=== PATIENT | female | born 1940 | race Caucasian/White ===

== ENCOUNTER → 2017-09-22 | Outpatient (CLI) | payer OTHER ==
[~2017-09-22] MED LIST: ALIGN4 MG PO; AMARYL2 M1 PO; ASPIR 8181 MG PO; AUGMENTIN 875-1 EACH PO; BENADRYL25 MG PO; CARDURA4 MG PO; COZAAR 50 MG TA50 M2 PO; DAPSONE100 MG TOP; HYDROCODON-ACE1 EAC7 PO; KLOR-CON 1010 MEQ PO; LASIX 40 MG TAB40 M2 PO; LEVOXYL75 MCG PO; MAGOX 400400 MG PO; METFORMIN HCL500 MG PO; NEURONTIN 300300 M1 PO; NYSTATIN15 G1 TOP; PROTONIX40 M1 PO; REQUIP 0.25 M0.25 M1 PO; SIMVASTATIN10 MG PO; TRAMADOL 50 MG50 MG PO; TYLENOL325 MG PO; ZYRTEC10 M5 PO
== END ==
LOC: HYPER
DX: E11.622 Type 2 diabetes mellitus with other skin ulcer (principal); L97.321 Non-pressure chronic ulcer of left ankle limited to breakdown of skin; L88 Pyoderma gangrenosum; E78.5 Hyperlipidemia, unspecified; I10 Essential (primary) hypertension; M19.90 Unspecified osteoarthritis, unspecified site; Z79.84 Long term (current) use of oral hypoglycemic drugs; Z72.89 Other problems related to lifestyle
CPT/HCPCS: 53353; 53354

== ENCOUNTER 2017-09-26 17:40 | Emergency (ER) | payer OTHER ==
[~2017-09-26] VITALS: Ht 160 cm; Wt 104.3 kg
== END 2017-09-26 19:35 | disposition home or self-care (01) ==
LOC: ER 17:40
DX: L76.22 Postprocedural hemorrhage of skin and subcutaneous tissue following other procedure (principal); E11.9 Type 2 diabetes mellitus without complications; I10 Essential (primary) hypertension; Z88.2 Allergy status to sulfonamides

== ENCOUNTER → 2017-09-28 | Outpatient (CLI) | payer OTHER | LOC: HYPER 06:59 | DX: E11.622 Type 2 diabetes mellitus with other skin ulcer (principal); L97.321 Non-pressure chronic ulcer of left ankle limited to breakdown of skin; L97.812 Non-pressure chronic ulcer of other part of right lower leg with fat layer exposed; L88 Pyoderma gangrenosum; E11.52 Type 2 diabetes mellitus with diabetic peripheral angiopathy with gangrene; Z79.84 Long term (current) use of oral hypoglycemic drugs; E78.5 Hyperlipidemia, unspecified; I10 Essential (primary) hypertension; M19.90 Unspecified osteoarthritis, unspecified site; Z85.828 Personal history of other malignant neoplasm of skin; Z72.89 Other problems related to lifestyle ==

== ENCOUNTER → 2017-10-05 | Outpatient (CLI) | payer OTHER | LOC: HYPER 07:59 | DX: E11.622 Type 2 diabetes mellitus with other skin ulcer (principal); L97.321 Non-pressure chronic ulcer of left ankle limited to breakdown of skin; L97.812 Non-pressure chronic ulcer of other part of right lower leg with fat layer exposed; E11.621 Type 2 diabetes mellitus with foot ulcer; L97.411 Non-pressure chronic ulcer of right heel and midfoot limited to breakdown of skin; L89.612 Pressure ulcer of right heel, stage 2; L88 Pyoderma gangrenosum; E11.52 Type 2 diabetes mellitus with diabetic peripheral angiopathy with gangrene; Z79.84 Long term (current) use of oral hypoglycemic drugs; E78.5 Hyperlipidemia, unspecified; I10 Essential (primary) hypertension; M19.90 Unspecified osteoarthritis, unspecified site; Z85.828 Personal history of other malignant neoplasm of skin; Z72.89 Other problems related to lifestyle ==

== ENCOUNTER → 2017-10-13 | Outpatient (CLI) | payer OTHER ==
[~2017-10-13] MED LIST changes: +ALLERGY RELIEF25 MG PO; +AMARYL4 MG PO; +BANOPHEN25 M1 PO; +COLACE100 MG PO; +DAPSONE100 MG PO; +DURAGESIC25 MCG/HR TRANSDERM; +FLUCONAZOLE 10100 MG PO; +INVANZ1 GM IV; +LASIX 40 MG TAB40 M1 PO; +LINEZOLID600 MG PO; +MINOCIN100 MG PO; +MULTIVITAMINS1 EAC7 PO; +NORCO 10-325 T1 EACH PO; +NOVOLIN N100 UNIT/3 SUBQ; +ONDANSETRON HCL4 M2 PO; +PROAIR HFA8.5 GM PO; +PROBIOTIC1 EAC1 PO; +TACROLIMUS30 G1 TOP; +TRIAMCINOLONE A80 G2 TOP; +VITAMINC500 PO
== END ==
LOC: HYPER 06:41
DX: E11.622 Type 2 diabetes mellitus with other skin ulcer (principal); L97.812 Non-pressure chronic ulcer of other part of right lower leg with fat layer exposed; L97.321 Non-pressure chronic ulcer of left ankle limited to breakdown of skin; E11.52 Type 2 diabetes mellitus with diabetic peripheral angiopathy with gangrene; L88 Pyoderma gangrenosum; I10 Essential (primary) hypertension; E78.5 Hyperlipidemia, unspecified; M19.90 Unspecified osteoarthritis, unspecified site; Z79.84 Long term (current) use of oral hypoglycemic drugs; Z85.9 Personal history of malignant neoplasm, unspecified; Z72.89 Other problems related to lifestyle

== ENCOUNTER 2017-10-14 05:12 | Day surgery (SDC) | payer OTHER ==
[~2017-10-14] VITALS: Ht 160 cm; Wt 110.7 kg
--- NOTE | ~2017-10-14 | EKG ---
[address] [address] ELECTROCARDIOGRAM REPORT Name: CARLINE CURRY Room #: 150-4 [facility]..#: [id number] Admission: 10/14/17 Attend Phys: Braden Graham Discharge: Date of : 44 Report #: [id number] THIS REPORT FOR: //name// [facility] Test Date: 2017-10-14 Test Time: 06:57:05 Pat Name: CARLINE CURRY Department: Room: 150 4 Gender: F Miner Assistant: RONNY : 1940 Requested By: Drew Bernardo Order Number: [id number] MD: David Santos Measurements Intervals [place] Rate: 65 P: 34 [place]: 162 QRS: -20 QRSD: 94 T: 16 QT: 435 QTc: 453 Interpretive Statements Sinus rhythm Left ventricular hypertrophy No previous ECG available for comparison Electronically Signed On 10-14-2017 8:41:21 VICE PRESIDENT OF DEVELOPMENT by David Santos [email or web address] <ELECTRONICALLY SIGNED> By: David Santos MD 10/14/17 [id number] 0657 MD LILY Garcia
[~2017-10-14 05:12] MED LIST changes: -ALLERGY RELIEF25 MG PO; -AMARYL4 MG PO; -BANOPHEN25 M1 PO; -COLACE100 MG PO; -FLUCONAZOLE 10100 MG PO; -INVANZ1 GM IV; -LASIX 40 MG TAB40 M1 PO; -LINEZOLID600 MG PO; -MINOCIN100 MG PO; -NORCO 10-325 T1 EACH PO; -NOVOLIN N100 UNIT/3 SUBQ; -ONDANSETRON HCL4 M2 PO; -PROAIR HFA8.5 GM PO; -PROBIOTIC1 EAC1 PO; -TACROLIMUS30 G1 TOP; -TRIAMCINOLONE A80 G2 TOP
[2017-10-14 07:10] LABS: CALCIUM 9.8 mg/dL (8.5-10.1); CREATININE 1.3 mg/dL (0.6-1.0); POTASSIUM 4.5 mmol/L (3.5-5.1)
[2017-10-14 07:40] VITALS: BP 149/61
[2017-10-14 08:49] VITALS: BP 149/61
== END 2017-10-14 09:13 | disposition home or self-care (01) ==
LOC: TBA 05:12 → OR 05:12 → TBA 05:13 → OR 09:13
PROVIDERS: Anesthesiology
DX: E11.622 Type 2 diabetes mellitus with other skin ulcer (principal); L97.828 Non-pressure chronic ulcer of other part of left lower leg with other specified severity; L97.818 Non-pressure chronic ulcer of other part of right lower leg with other specified severity; L88 Pyoderma gangrenosum; I10 Essential (primary) hypertension; E78.5 Hyperlipidemia, unspecified; K21.9 Gastro-esophageal reflux disease without esophagitis; E03.9 Hypothyroidism, unspecified; G47.33 Obstructive sleep apnea (adult) (pediatric); Z90.710 Acquired absence of both cervix and uterus; Z85.828 Personal history of other malignant neoplasm of skin; Z96.641 Presence of right artificial hip joint; Z79.899 Other long term (current) drug therapy; Z98.41 Cataract extraction status, right eye; Z98.42 Cataract extraction status, left eye; Z88.2 Allergy status to sulfonamides; Z79.82 Long term (current) use of aspirin; Z79.891 Long term (current) use of opiate analgesic
CPT/HCPCS: 50010; 50101; 50386; 53353; 53354; 57091; 62110; 62900; 70005

== ENCOUNTER → 2017-10-19 | Outpatient (CLI) | payer OTHER | LOC: HYPER 06:45 | DX: E11.622 Type 2 diabetes mellitus with other skin ulcer (principal); L97.321 Non-pressure chronic ulcer of left ankle limited to breakdown of skin; L97.812 Non-pressure chronic ulcer of other part of right lower leg with fat layer exposed; L88 Pyoderma gangrenosum; Z79.84 Long term (current) use of oral hypoglycemic drugs; E78.5 Hyperlipidemia, unspecified; I10 Essential (primary) hypertension; M19.90 Unspecified osteoarthritis, unspecified site; Z72.89 Other problems related to lifestyle ==

== ENCOUNTER → 2017-11-16 | Outpatient (CLI) | payer OTHER ==
[~2017-11-16] MED LIST changes: +ALLERGY RELIEF25 MG PO; +AMARYL4 MG PO; +BANOPHEN25 M1 PO; +COLACE100 MG PO; +FLUCONAZOLE 10100 MG PO; +INVANZ1 GM IV; +LASIX 40 MG TAB40 M1 PO; +LINEZOLID600 MG PO; +MINOCIN100 MG PO; +NORCO 10-325 T1 EACH PO; +NOVOLIN N100 UNIT/3 SUBQ; +ONDANSETRON HCL4 M2 PO; +PROAIR HFA8.5 GM PO; +PROBIOTIC1 EAC1 PO; +TACROLIMUS30 G1 TOP; +TRIAMCINOLONE A80 G2 TOP
== END ==
LOC: HYPER 06:41
DX: E11.622 Type 2 diabetes mellitus with other skin ulcer (principal); L88 Pyoderma gangrenosum; L97.321 Non-pressure chronic ulcer of left ankle limited to breakdown of skin; E78.5 Hyperlipidemia, unspecified; I10 Essential (primary) hypertension; M19.90 Unspecified osteoarthritis, unspecified site; Z85.828 Personal history of other malignant neoplasm of skin; Z98.49 Cataract extraction status, unspecified eye; Z79.84 Long term (current) use of oral hypoglycemic drugs; Z72.89 Other problems related to lifestyle

== ENCOUNTER → 2017-12-07 | Outpatient (CLI) | payer OTHER | LOC: HYPER 06:44 | DX: E11.622 Type 2 diabetes mellitus with other skin ulcer (principal); L97.321 Non-pressure chronic ulcer of left ankle limited to breakdown of skin; L97.812 Non-pressure chronic ulcer of other part of right lower leg with fat layer exposed; L88 Pyoderma gangrenosum; E78.5 Hyperlipidemia, unspecified; I10 Essential (primary) hypertension; M19.90 Unspecified osteoarthritis, unspecified site; Z79.84 Long term (current) use of oral hypoglycemic drugs; Z72.89 Other problems related to lifestyle ==

== ENCOUNTER → 2017-12-22 | Outpatient (CLI) | payer OTHER | LOC: HYPER 06:49 | DX: E11.622 Type 2 diabetes mellitus with other skin ulcer (principal); L97.321 Non-pressure chronic ulcer of left ankle limited to breakdown of skin; L97.812 Non-pressure chronic ulcer of other part of right lower leg with fat layer exposed; I10 Essential (primary) hypertension; E78.5 Hyperlipidemia, unspecified; M19.90 Unspecified osteoarthritis, unspecified site; L88 Pyoderma gangrenosum; Z72.89 Other problems related to lifestyle; Z79.84 Long term (current) use of oral hypoglycemic drugs; Z85.828 Personal history of other malignant neoplasm of skin ==

== ENCOUNTER 2017-12-27 10:37 | Inpatient (IN) | payer OTHER ==
[~2017-12-27] VITALS: Ht 160 cm; Wt 118.4 kg
--- NOTE | ~2017-12-27 | HC ---
[facility] [place] [address] CONSULTATION Name: CARLINE CURRY Room #: 441-P ADM IN M.R.#: [id number] Admission: 12/27/17 Attend Phys: Gibran Campbell MD Discharge: Date of : 42 Report #: [id number] THIS REPORT FOR: //name// CC: Gibran Huston DATE OF SERVICE: 12/27/2017 HISTORY OF PRESENT ILLNESS: The patient is a 77-year-old white woman seen [facility] at Dr. Aleksandar Deleon request regarding bilateral lower extremities ulcerations-possible pyoderma gangrenosum of 6 months or better duration. The patient is being initially seen at [facility], subsequently transferred to Dr. Aleksandar Deleon, a diagnosis of pyoderma gangrenosum is made. The patient receives treatment with systemic antibiotics and also with initial tapering doses of prednisone. Of lately, the patient is on Augmentin 875 b.i.d. for 10 days and prednisone 10 mg daily prescribed by Dr. Freire sometime last week. The patient did have wound cultures obtained on the last office visit on 12/22/2017, and the culture revealed heavy growth of Proteus mirabilis sensitive only to ertapenem. The patient and son were all for hospitalization for initiation of antibiotics, but they have turned this down. At present, the patient and son relates that the wounds on legs are worse and obviously she is in pain, but fortunately not having systemic symptoms. DRUG ALLERGIES: SULFA DRUGS. MEDICATIONS: The patient is currently on treatment with levothyroxine 75 mcg daily, pantoprazole 40 mg daily, metformin 1 gram p.o. b.i.d., losartan 100 mg daily, magnesium 400 mg daily, furosemide 40 mg daily, Requip 0.5 mg 2 daily, glimepiride 2 mg daily, Cardura 2 mg daily, probiotics, aspirin 81 mg daily, simvastatin 10 mg daily, multivitamins with zinc daily, vitamin C 500 mg daily, Augmentin and prednisone as dictated above, she is also using, a topical combination of gentamicin, clobetasol and dapsone to lower extremity wound as well as dressing changes to both legs 3 times per week. PAST MEDICAL HISTORY: Diabetes mellitus. Hypertension. Right total hip replacement, left ankle fracture. Denies any other surgeries. Diabetes mellitus for many years. Obesity. Dyslipidemia. REVIEW OF SYSTEMS: Essentially noncontributory besides pain in right lower extremity. PHYSICAL EXAMINATION: GENERAL: A well-developed, obese woman. VITAL SIGNS: Presenting with following vital signs: Temperature 98.4, pulse 77, BP 160/100, O2 saturation 97% on room air. HEENMT: Within range. [address] [address] CONSULTATION Name: CARLINE CURRY Room #: 441-P [facility] IN M.R.#: [id number] Admission: 12/27/17 Attend Phys: Gibran Campbell MD Discharge: Date of : 42 Report #: [id number] NECK: Short, difficult to examine. LUNGS: Clear with decreased breath sounds. HEART: S1, S2. No gallop. BREASTS: Deferred. ABDOMEN: Obese, difficult to examine, no palpable masses or megaly. PELVIC: Deferred. RECTAL: Deferred. EXTREMITIES: The patient has rather ugly looking ulcerations on the medial and posterior aspect of the right leg and also another ulceration on the posterior aspect of the left leg with exposed tendon. There is some erythema of legs and swelling of feet. NEUROLOGIC: Grossly within normal limits. LABORATORY DATA: None available since 10/14/2017, where sodium 135, potassium 4.5, BUN 54, creatinine 1.3, albumin 2.3. On 09/07/2017, white blood cell count 11.9, hemoglobin 9.3, platelets 159,000. Hemoglobin A1c on 09/06/2017, 7.5%. ASSESSMENT: 1. Chronic nonhealing ulceration in both legs, question pyoderma gangrenosum versus stasis ulceration. 2. Diabetes mellitus. 3. Chronic kidney disease. 4. Anemia of chronic disease. 5. Infection versus colonization of both legs ulceration with multiple drug resistant Proteus mirabilis. SUGGESTIONS: My initial recommendation is that this patient must be hospitalized and she will need baseline laboratory testing. We will treat the isolated organism on leg ulcer with ertapenem 1 gram IV daily. She might benefit from doing this for 10 days and will need a employment evaluator/case manager to secure approval of IV antibiotics by . Did discuss this recommendation with Dr. Aleksandar Deleon. He agreed with my recommendations. I am awaiting the patient's and son's decision on how to proceed with this. Obviously doing these on outpatient basis with multiple issues that include the PICC line, the approval by insurance company and also I recommend that dressings to be changed on a daily basis. Should we be dealing with pyoderma gangrenosum, we must avoid surgical intervention by all means, debridement with water irrigation is okay. High dose prednisone may be in order. [address] [address] CONSULTATION Name: CARLINE CURRY Room #: 441-P ADM IN M.R.#: [id number] Admission: 12/27/17 Attend Phys: Gibran Campbell MD Discharge: Date of : 42 Report #: [id number] Aleksandar Deleon, thank you for requesting my suggestions in the care of your patient. <ELECTRONICALLY SIGNED> By: Miko Santos MD 12/28/17 1430 1200 1613 Miko Santos MD /nt
--- NOTE | ~2017-12-27 | HC ---
[facility] [place] [address] CONSULTATION Name: CARLINE CURRY Room #: 441-P [facility] IN M.R.#: [id number] Admission: 12/27/17 Attend Phys: Gibran Campbell MD Discharge: 12/28/17 Date of : 42 Report #: [id number] THIS REPORT FOR: //name// CC: Gibran Huston DATE OF SERVICE: 12/27/2017 HISTORY OF PRESENT ILLNESS: This is a pleasant white female who we have been following for biopsy documented pyoderma gangrenosum for the past several months of bilateral lower extremities. The patient was seen last week in our clinic by Dr. Freire and had a culture performed, which came back yesterday as sensitive only to ertapenem IV. The patient was seen by Dr. Miko Santos today in consultation and it was felt that the patient needs to be admitted to the hospital and started on IV antibiotics with associated PICC line. I was asked to continue with the wound care for this patient. The patient was actually scheduled to see me tomorrow for followup. The patient denies fevers or chills. The patient's main complaint is significant pain in both lower extremities. The patient also states she thinks that the current regimen of clobetasol, Silvadene, and dapsone seems to have stopped working. The patient is requesting possibly trying a different type of topical dressing. Approximately 2 weeks ago, I talked to the patient and her son about starting cyclosporine along with prednisone taper for this recalcitrant pyoderma gangrenosum as well as performing another biopsy to make sure that there is not something else that we were dealing with besides the pyoderma. The patient does have a remote history of melanoma on her back. Last week, the patient was started on 10 mg of oral prednisone and states she thinks that might possibly have made her somewhat better, but obviously she has a multidrug resistant Proteus infection in her wounds. The patient is now agreeable to the admission for PICC line placement and the starting of the IV antibiotics, which could be up to 6-8 weeks of treatment with Dr. Santos. We will continue to follow the wounds while she is here in the hospital. We will continue with clobetasol and dapsone, we will start the patient with Hydrofera Blue over the wounds. We will also perform a punch biopsy at the bedside to make sure that there are no underlying etiologies for these ulcerations that we have missed. answered multiple questions for them and we will continue to follow them while they are here in the hospital. IMPRESSION: 1. Chronic ulcerations, bilateral lower extremities, presumed pyoderma gangrenosum. 2. Diabetes mellitus. 3. [place] [address] CONSULTATION Name: CARLINE CURRY Room #: 441-P DIS IN M.R.#: [id number] Admission: 12/27/17 Attend Phys: Gibran Campbell MD Discharge: 12/28/17 Date of : 42 Report #: [id number] PLAN: Described as above. We will continue to follow the patient. <ELECTRONICALLY SIGNED> By: Aleksandar Deleon MD 01/05/18 1524 1314 1731 Aleksandar Deleon MD /nt
--- NOTE | ~2017-12-27 | S ---
[facility] [place] [address] SURGICAL PATH RPT PROCEDURE Name: KANDICE CURRY Room #: 441-P [facility] IN M.R.#: [id number] Admission: 12/27/17 Date of : 44 Discharge: 12/28/17 Report #: [id number] Path Case #: [id number] PATHOLOGY REPORT COLLECTION DATE: 12/28/2017 RECEIVED DATE: 12/28/2017 SUBMITTING PHYS: Dr. Aleksandar Deleon OTHER PHYS: Dr. Gibran Campbell SPECIMEN(S) RECEIVED: A.Right lower leg punch biopsy * * * * * * * * * * * * FINAL DIAGNOSIS: Skin, right lower leg, punch biopsy: - Ulceration with underlying dermal inflammation and hypertrophied vessels. There is no evidence of malignancy (see comment). (SAS:richie; 12/30/2017) COMMENT: There is no evidence within this current biopsy to support pyoderma gangrenosum. The entire epidermal surface is ulcerated with underlying dermal necrosis and secondary vascular occlusion of superficial dermal blood vessels. Only a patchy lymphoplasmacytic inflammatory cell infiltrate is present. Hypertrophied deep veins are identified. The inflammatory changes are not consistent with pyoderma gangrenosum. There is no evidence of malignancy. The case was evaluated with additional deeper levels. (SAS:richie; 12/30/2017) PATHOLOGIST: Dawna Bray M.D., Dermatopathologist REPORT ELECTRONICALLY SIGNED BY: Dawna Bray M.D., Dermatopathologist DATE/TIME: 12/30/2017 10:41 * * * * * * * * * * * * GROSS PATHOLOGY: Received in formalin labeled "Kandice Curry, right lower leg punch biopsy" and consists of a 0.5 cm thick by 0.2 cm in diameter evans skin punch which is entirely submitted as A1. (POWER; 12/28/2017) CLINICAL HISTORY: Rule out or confirm pyoderma gangrenosum/cancer history of melanoma [address] [address] [place] [address] SURGICAL PATH RPT PROCEDURE Name: KANDICE CURRY Room #: 441[facility] IN M.R.#: [id number] Admission: 12/27/17 Date of : 44 Discharge: 12/28/17 Report #: [id number] Path Case #: [id number] INITIAL CPT CODE(S): A; 99743 Professional services performed by [employer], [address] [place] [id number]. Technical services performed by [employer] at [address] [place] [address]. [employer] [address] [place] [address] PHONE: [phone] DIRECTOR: Danny Alcaraz M.D. * * * END OF REPORT * * *
[~2017-12-27 10:37] MED LIST changes: -ALLERGY RELIEF25 MG PO; -AMARYL4 MG PO; -BANOPHEN25 M1 PO; -COLACE100 MG PO; -FLUCONAZOLE 10100 MG PO; -INVANZ1 GM IV; -LASIX 40 MG TAB40 M1 PO; -LINEZOLID600 MG PO; -MINOCIN100 MG PO; -NORCO 10-325 T1 EACH PO; -NOVOLIN N100 UNIT/3 SUBQ; -ONDANSETRON HCL4 M2 PO; -PROAIR HFA8.5 GM PO; -PROBIOTIC1 EAC1 PO; -TACROLIMUS30 G1 TOP; -TRIAMCINOLONE A80 G2 TOP
[2017-12-27 10:59] VITALS: BP 160/100
[2017-12-27 13:18] VITALS: BP 161/87
[2017-12-27 14:45] LABS: HEMATOCRIT 30.3 % (37.0-47.0); HEMOGLOBIN 10.2 gm/dL (12.0-15.0); MCH 32.5 pg (26.0-34.0); MCHC 33.6 g/dL (28.0-37.0); MCV 96.9 fL (80.0-100.0); RBC 3.13 mil/uL (4.20-5.00); RDW 18.5 % (10.5-14.5); WBC 7.1 thou/uL (4.0-11.0)
[2017-12-27 15:03] LABS: ALBUMIN 2.9 g/dL (3.4-5.0); ANION GAP 9 mmol/L (7-16); BUN 50 mg/dL (7-18); CALCIUM 8.8 mg/dL (8.5-10.1); CHLORIDE 104 mmol/L (98-107); CO2 26 mmol/L (21-32); CREATININE 1.2 mg/dL (0.6-1.0); GLUCOSE 267 mg/dL (74-106); SGOT 20 U/L (15-37); SGPT 37 U/L (30-65); SODIUM 139 mmol/L (136-145); TOTAL BILIRUBIN 0.3 mg/dL (<0.1-1.0); TOTAL PROTEIN 6.7 g/dL (6.4-8.2)
[2017-12-27 16:00] VITALS: BP 152/59
[2017-12-27] MEDS ORDERED: CARDURA4 MG PO (17:04)
[2017-12-27 19:31] VITALS: BP 139/65
[2017-12-28 03:12] VITALS: BP 153/89
[2017-12-28 08:00] VITALS: BP 145/69
[2017-12-28 15:22] VITALS: BP 145/69
[2017-12-28] MEDS ORDERED: KLOR-CON 1010 MEQ PO (17:15)
[2017-12-28] MEDS ORDERED: INVANZ1 GM IV (17:15)
[2017-12-28] MEDS ORDERED: PROBIOTIC1 EAC1 PO (17:31)
[2017-12-28] MEDS ORDERED: COLACE100 MG PO (17:31)
[2017-12-28 22:09] LABS: IgA 384 mg/dL (64-422); IgG 579 mg/dL (700-1600); IgM 48 mg/dL (26-217)
[2017-12-29 01:07] LABS: HAV IgM AB (ANTI-HAV IgM) Negative (Negative); HEPATITIS B SURFACE AG Negative (Negative); HEPATITIS C VIRUS AB <0.1 (0.0-0.9)
[2017-12-30 10:08] LABS: ANA INTERPRETATION Negative (Negative)
== END 2017-12-28 17:56 | disposition home health service (06) | DRG 603 ==
LOC: SEN 10:37 → 4S 12:26 → SEN 15:20 → ENTRNSPT 12-28 17:46 → 4S 12-28 17:56
PROVIDERS: Internal Medicine Infectious Disease
PROC: 0HBKXZX Excision of Right Lower Leg Skin, External Approach, Diagnostic (ICD-10-PCS; principal; 2017-12-28)
PROC: 05HB33Z Insertion of Infusion Device into Right Basilic Vein, Percutaneous Approach (ICD-10-PCS; principal; 2017-12-28)
DX: L03.116 Cellulitis of left lower limb (principal); L88 Pyoderma gangrenosum; L97.319 Non-pressure chronic ulcer of right ankle with unspecified severity; L97.329 Non-pressure chronic ulcer of left ankle with unspecified severity; E46 Unspecified protein-calorie malnutrition; Z68.42 Body mass index [BMI] 45.0-49.9, adult; L03.115 Cellulitis of right lower limb; R53.81 Other malaise; G62.9 Polyneuropathy, unspecified; E66.9 Obesity, unspecified; N18.9 Chronic kidney disease, unspecified; E11.22 Type 2 diabetes mellitus with diabetic chronic kidney disease; E11.622 Type 2 diabetes mellitus with other skin ulcer; F10.10 Alcohol abuse, uncomplicated; Z66 Do not resuscitate; E11.51 Type 2 diabetes mellitus with diabetic peripheral angiopathy without gangrene; I12.9 Hypertensive chronic kidney disease with stage 1 through stage 4 chronic kidney disease, or unspecified chronic kidney disease; Z96.641 Presence of right artificial hip joint; E78.5 Hyperlipidemia, unspecified; Z79.82 Long term (current) use of aspirin; Z79.4 Long term (current) use of insulin; Z85.820 Personal history of malignant melanoma of skin; Z88.2 Allergy status to sulfonamides; Z79.899 Other long term (current) drug therapy; Z79.84 Long term (current) use of oral hypoglycemic drugs
CPT/HCPCS: 10102; 27000

== ENCOUNTER 2018-01-04 14:05 | Inpatient (IN) | payer OTHER ==
[~2018-01-04] VITALS: Ht 157.5 cm; Wt 117.9 kg
--- NOTE | ~2018-01-04 | HC ---
[facility] [place] [address] CONSULTATION Name: CARLINE CURRY Room #: 420-[facility] IN M.R.#: [id number] Admission: 01/04/18 Attend Phys: Eliseo Frank MD Discharge: 01/11/18 Date of : 42 Report #: [id number] THIS REPORT FOR: //name// CC: Eliseo Deleon HISTORY OF PRESENT ILLNESS: The patient is seen at the request of Dr. Santos regarding findings of a monoclonal paraprotein. This 77-year-old white female is seen in conjunction with her son. She was readmitted emergently through the ER at [facility] for worsening lower extremity edema and pain. Since August, she had been undergoing therapy for pyoderma gangrenosum through [facility]. As part of her recent laboratory studies, immune globulins were ordered and showed a reduced IgG level of 579 and an immunoelectrophoresis with an IgA lambda paraprotein. She has no preexisting history of multiple myeloma or MGUS. She denies any new palpable masses or bone pain. PAST MEDICAL HISTORY: Significant also for diabetes along with medically managed hypertension. She has had the cellulitis of her lower extremities as described along with evidence of sepsis and wound bleeding, mild renal failure and chronic edema. ALLERGIES: TO SULFA. MEDICATIONS: As listed on the MFR. REVIEW OF SYSTEMS: Currently negative for any sweats, chills, fevers, weight loss or adenopathy. FAMILY HISTORY: Noncontributory. SOCIAL HISTORY: Negative for tobacco and alcohol. PHYSICAL EXAMINATION: GENERAL: Shows her to be morbidly obese. She is alert, in bed. She is currently afebrile. HEENT: Shows eye glasses. NECK: Supple. CHEST: Clear. CARDIOVASCULAR: Normal S1, S2. ABDOMEN: Shows morbid obesity. EXTREMITIES: Show edema with ulceration, right greater than left. This processed being dressed by the programming specialist. LYMPHATICS: Revealed no palpable supraclavicular adenopathy. SKIN: Normal turgor. NEUROLOGIC: No focal localizing signs. PSYCHIATRIC: Not agitated or confused. [facility] [address] [place] [address] CONSULTATION Name: CARLINE CURRY Room #: 420-P [facility] IN M.R.#: [id number] Admission: 01/04/18 Attend Phys: Eliseo Frank MD Discharge: 01/11/18 Date of : 42 Report #: [id number] LABORATORY DATA: Showed a mild anemia. ASSESSMENT: IgA lambda paraprotein. PLAN: As discussed earlier with Dr. Deleon and Dr. Santos as well as the patient and her son we will perform further testing with thought of MGUS versus multiple myeloma. This paraprotein certainly could also be reactive to recent infection and renal failure. Other comorbidity is fact that she has been receiving earlier high doses of prednisone, which would be a possible treatment for myeloma ____ found our pending results. She is to be transferred to a long-term nursing facility in [place], but we will order urine and laboratory testing today to be performed prior to her discharge and we will await those results. Further and future recommendations will be forthcoming. Thanks for asking me to see her in consultation and being allowed to participate in her care. <ELECTRONICALLY SIGNED> By: Rehana Vines MD 01/12/18 1316 1557 2233 Rehana iVnes MD /nt
--- NOTE | ~2018-01-04 | HC ---
[facility] [address] CONSULTATION Name: CARLINE CURRY Room #: 420-P ADM IN M.R.#: [id number] Admission: 01/04/18 Attend Phys: Eliseo Frank MD Discharge: Date of : 42 Report #: [id number] THIS REPORT FOR: //name// CC: Eliseo Deleon DATE OF SERVICE: 01/05/2018 HISTORY OF PRESENT ILLNESS: A 77-year-old white woman being followed for chronic nonhealing ulceration of lower extremities, right greater than left, is brought by her son to the [facility] yesterday and reported patient's mother was unable to get up out of bed because of extreme weakness since last week for total of 5 days. Also, the patient's son reports that mother was having bleeding per right leg wound times 3, requiring dressing changes. The patient denies fevers or night sweats. She besides her usual medications is on ertapenem 1 gram IV daily, prednisone 40 mg daily, fentanyl patch 25 mcg every 72 hours and those medications are not on the patient's list. Today, the patient's son tells me that the metformin was increased to a gram twice daily by her primary physician. The patient elected to change primary physician and Dr. Eliseo Frank is going to be the primary physician as of now. We maintained the lengthy discussions about the patient's son ability to care for mother at home and we recommended hospitalization in [place], which is done, I will be acting as primary physician on January [address] Frank will assume care on January 05. PAST MEDICAL HISTORY: Morbid obesity. Diabetes mellitus. Hypertension. Right total hip replacement. Left ankle fracture. Chronic nonhealing ulcers of both legs, right greater than left, which were thought to be due to pyoderma gangrenosum. After lengthy discussion about therapeutic options, the patient was started on prednisone 40 mg daily sometime last week. The patient also carries a diagnosis of dyslipidemia. DRUG ALLERGIES: SULFA DRUGS. MEDICATIONS: Prednisone 30 mg daily, fentanyl 25 mcg every 72 hours, multivitamin with minerals daily, insulin NPH human 10 units subq daily, ascorbic acid 500 mg daily, losartan 100 mg p.o. daily, lactobacillus 1 capsule daily, KCl 20 mEq daily, glimepiride 4 mg with breakfast, levothyroxine 75 mcg p.o. daily, furosemide 40 mg p.o. b.i.d., pantoprazole 40 mg daily, hydrocodone bitartrate one tablet q.4h p.r.n., atorvastatin 10 mg daily, doxazosin 4 mg at bedtime, ropinirole 0.5 mg b.i.d., magnesium oxide 400 b.i.d., docusate 100 mg b.i.d., ertapenem stopped and meropenem 500 mg IV every 8 hours started. In view of azotemia, metformin discontinued. Since the patient had bleeding per right leg wound, no prophylactic subcutaneous anticoagulation started. REVIEW OF SYSTEMS: Weakness. No nausea and no vomiting. Chronic diarrhea [facility] [address] [place] [address] CONSULTATION Name: CARLINE CURRY Room #: 420-P ADM IN M.R.#: [id number] Admission: 01/04/18 Attend Phys: Eliseo Frank MD Discharge: Date of : 42 Report #: [id number] requiring loperamide on chronic basis . Bleeding per right leg wound, chronic pain to right leg improved after started on Duragesic by Dr. Aleksandar Deleon. PHYSICAL EXAMINATION: GENERAL: Obese woman, not toxic looking. VITAL SIGNS: Temperature 36.6, pulse 90, respirations 20, and BP 157/53. HEENMT: Within range. NECK: Supple, no thyromegaly. BREASTS: Deferred. LUNGS: Clear. HEART: S1, S2. No gallop. ABDOMEN: Morbidly obese, soft, no masses or megaly. EXTREMITIES: 3+ pitting pretibial edema, left leg with superficial ulceration rather clean, no active signs of infection; right leg ulceration with active bleeding in the clinic yesterday. Dressings reapplied, not removed today. NEUROLOGIC: Grossly within normal limits. ASSESSMENT: 1. Profound weakness, undetermined etiology. 2. Nonhealing ulcer, legs, right greater than left, bleeding ____ right leg, Proteus multiple drug resistant organisms in right leg wound. 3. Diabetes mellitus. 4. Acute kidney injury. 5. Malnutrition. 6. Obesity. 7. Pretibial edema. 8. Dyslipidemia. 9. Chronic pain syndrome. SUGGESTIONS: Recommend discontinue ertapenem and start meropenem drug of choice at the hospital 500 mg IV every 8 hours. Discontinue metformin in view of azotemia. Restart prednisone. Restart fentanyl patch. Recommend pressure dressing on legs. Reconsideration of prednisone needs to be entertained in view of the biopsy findings from punch biopsy obtained last week. Dr. Frank, thank you for requesting my suggestion. <ELECTRONICALLY SIGNED> By: Miko Santos MD 01/06/18 0952 1007 1325 Miko Santos MD /nt
--- NOTE | ~2018-01-04 | EKG ---
[address] [place] [address] ELECTROCARDIOGRAM REPORT Name: CARLINE CURRY Room #: 420-P ADM IN M.R.#: [id number] Admission: 01/04/18 Attend Phys: Eliseo Frank MD Discharge: Date of : 42 Report #: [id number] THIS REPORT FOR: //name// [facility] ED Test Date: 2018-01-04 Test Time: 14:28:58 Pat Name: CARLINE CURRY Department: Room: 420 Gender: F Diagnostic Radiologist: ANA : 1940 Requested By: Iona Brooks Order Number: [id number] MD: Jaime Cintron Measurements Intervals [place] Rate: 89 P: 48 [place]: 129 QRS: -20 QRSD: 90 T: 156 QT: 359 QTc: 437 Interpretive Statements Sinus rhythm Atrial premature complex Abnormal R-wave progression, late transition LVH with secondary repolarization abnormality Compared to ECG 10/14/2017 06:57:05 Atrial premature complex(es) now present Electronically Signed On 01-05-2018 8:09:25 [employer] CASHIER by Jaime Cintron [email or web address] <ELECTRONICALLY SIGNED> By: Jaime Cintron MD, [facility] 01/05/18 0809 1428 1428 Jaime Cintron MD, [facility] /EPI
--- NOTE | ~2018-01-04 | S ---
[facility] [place] [address] [place] [address] SURGICAL PATH RPT PROCEDURE Name: KANDICE CURRY Room #: 420-P ADM IN M.R.#: [id number] Admission: 01/04/18 Date of : 44 Discharge: Report #: [id number] Path Case #: [id number] PATHOLOGY REPORT COLLECTION DATE: 01/09/2018 RECEIVED DATE: 01/09/2018 SUBMITTING PHYS: Dr. Logan Arthur OTHER PHYS: Dr. Eliseo Deleon SPECIMEN(S) RECEIVED: A.Debridement tissue right lower leg B.Debridement tissue left lower leg C.Bone left lateral malleolus * * * * * * * * * * * * FINAL DIAGNOSIS: A. Right lower leg wound tissue, debridement: - Marked acute inflammation, ulceration along with fibrinoid necrosis, consistent with debridement tissue. B. Left lower leg wound tissue, debridement: - Marked acute inflammation, ulceration along with fibrinoid necrosis, consistent with debridement tissue. - Fragments of viable and reactive squamous epithelium present. C. Bone, left lateral malleolus, debridement: - Marked acute inflammation along with degeneration in dense fibrous tissue. - Fragments of remodeled bone as well as necrotic bone. (IUV:mgr; 01/10/2018) PATHOLOGIST: Kimmy Jack M.D. REPORT ELECTRONICALLY SIGNED BY: Kimmy aJck M.D. DATE/TIME: 01/10/2018 17:17 * * * * * * * * * * * * GROSS PATHOLOGY: A. The specimen is received in formalin, labeled "Frances, Kandice and debridement right lower leg wound tissue", are multiple irregular fragments of marie-white necrotic to evans pink soft tissues ranging from 0.8 cm up to 2.1 cm in greatest dimension and measuring 2.0 x 1.7 x 0.5 cm in aggregate. The specimen is entirely submitted in A1. B. The specimen is received in formalin, labeled " Frances, Kandice and debridement tissue left lower leg wound", are several irregular fragments of weaver-white necrotic to evans-pink soft tissues ranging from 1.1 up to 4.2 cm in greatest dimension and measuring 4.2 x 1.[address] [address] SURGICAL PATH RPT PROCEDURE Name: KANDICE CURRY Room #: 420-P ADM IN M.R.#: [id number] Admission: 01/04/18 Date of : 44 Discharge: Report #: [id number] Path Case #: [id number] 0.5 cm in aggregate. One fragment has a 0.7 x 0.5 x 0.1 cm weaver-white nodule. Rackman sections are submitted in B1. (Nodule entirely submitted) C. The specimen is received in formalin, labeled " Kandice Curry and bone left lateral malleolus", are multiple irregular fragments off evans-weaver soft tissues admixed with possible bone spicules the aggregate measures 0.7 x 0.5 x 0.1 cm. The specimen is entirely submitted in C1 after decalcification. (SWS; 01/09/2018) CLINICAL HISTORY: Cellulitis bilateral lower extremity INITIAL CPT CODE(S): A; 52975 B; 53570 C; 75208, 46048 Professional services performed by [facility] at [facility] [address], [place] [address] Technical services performed by [facility] at [address] [place] [address], [facility] [address] [place] [address]. [facility] [address] [place] [address] PHONE: [phone] DIRECTOR: Danny Alcaraz M.D. * * * END OF REPORT * * *
--- NOTE | ~2018-01-04 | O ---
[facility] [place] [address] OPERATIVE REPORT Name: CARLINE CURRY Room #: 420-P [facility] IN M.R.#: [id number] Admission: 01/04/18 Attend Phys: Eliseo Frank MD Discharge: 01/11/18 Date of : 44 Report #: [id number] THIS REPORT FOR: //name// CC: Eliseo Sorensenhens DATE OF SERVICE: 01/09/2018 SURGEON: Logan Arthur MD RECONDITIONER: None. PREOPERATIVE DIAGNOSES: 1. Bilateral lower extremity wounds. 2. Pyoderma gangrenosum. 3. Renal failure. POSTOPERATIVE DIAGNOSES: 1. Bilateral lower extremity wounds. 2. Pyoderma gangrenosum. 3. Renal failure. PROCEDURES: 1. Excisional debridement of right lower extremity wound including skin and subcutaneous tissue (starting wound size 13 cm x 8 cm, ending wound size 14 cm x 9 cm with a total area of 126 cm2) with Misonix ultrasonic debridement and application of PriMatrix skin substitute graft. 2. Excisional debridement of left lower extremity wound including skin, subcutaneous tissue, muscle, and bone (starting size 14 cm x 3 cm, ending size 15 cm x 4.5 cm with a surface area of 67.5 cm2) with Misonix ultrasonic debridement and application of PriMatrix skin substitute graft. ANESTHESIA: General endotracheal anesthesia and local anesthetic. ESTIMATED BLOOD LOSS: 10 mL. SPECIMEN: Skin and subcutaneous tissue from the right lower extremity; skin, subcutaneous tissue, muscle and bone from the left lower extremity. COMPLICATIONS: None appreciated. INDICATIONS FOR PROCEDURE: This is a 77-year-old female patient who was seen in the [facility] Emergency Room for worsening bilateral lower extremity swelling and pain. The patient has a history of pyoderma gangrenosum recently diagnosed this past August. She has had difficulty with wound infections, requiring antibiotic therapy. She has been admitted to [address] [address] OPERATIVE REPORT Name: CARLINE CURRY Room #: 420-P DIS IN M.R.#: [id number] Admission: 01/04/18 Attend Phys: Eliseo Frank MD Discharge: 01/11/18 Date of : 42 Report #: [id number] [facility] recently and was dismissed home within the past 2 weeks receiving Invanz through a PICC line. She was seen in followup in the wound care clinic and was felt to have worsened, which prompted her admission through the Emergency Room. I have been consulted by the wound care service to debride her wound and to apply PriMatrix as a skin substitute (which will ultimately serve as a scaffolding for granulation tissue). The patient presents for excisional debridement, Misonix debridement, and placement of PriMatrix on both lower extremities. DESCRIPTION OF PROCEDURE IN DETAIL: After the risks, benefits, and expectations of the operation were discussed in detail with the patient, informed consent was obtained. The patient was identified in the preoperative holding area. She has been receiving scheduled IV antibiotics. She was taken to the operating room and she was placed in the supine position. SCDs were placed on the patient's bilateral lower extremities and pneumatic compression was initiated. The patient was then given IV sedation and she was intubated without incident. A time-out was performed to identify the correct patient and procedure. Both lower extremities were prepped and draped in the standard sterile fashion. The right lower extremity wound was addressed first. The wound was measured and the planned incision was drawn out. Local anesthetic was infiltrated into the skin and subcutaneous tissue. Sharp #10 blade scalpel was used to make the incision through the skin and to excise the necrotic tissue, which also included fibrinous exudate. The tissue was sent for specimen. All areas of necrosis were debrided. Dissection was carried down to healthy bleeding tissue. Cultures were then taken to be sent for aerobes, anaerobes, fungus and AFB. The wound was then curetted and bleeding points were made hemostatic with electrocautery. After ensuring hemostasis, the Appiphanyonix ultrasonic device was then used to mechanically debride the entire surface area of the exposed tissue. Bleeding points were again made hemostatic with electrocautery. The wound was then irrigated and hemostasis was ensured. An island of skin and subcutaneous tissue was present and this was not excised, located in the left mid portion of the wound. The PriMatrix skin substitute (impregnated with silver) was then applied to the wound. An 8 cm x 8 cm mesh graft was placed to cover the defect. The graft was secured to the underlying tissue with interrupted 2-0 Vicryl sutures. Additional graft was placed on the right side of the wound and the island of healthy skin and subcutaneous tissue was notched out in the mesh. The mesh was secured such that there was no significant lifting of the mesh off of the underlying tissue. Two additional smaller pieces were used to completely cover the wound in a similar fashion. The wound was then dressed with Adaptic, normal saline moistened Kerlix, an ABD pad, and additional Kerlix. The left lower extremity wound was addressed next. In a similar fashion, the wound was measured. The planned incision was drawn out. A sharp #10 blade scalpel was used to make an incision after local anesthetic was infiltrated into the skin and subcutaneous tissue. The tissue was excised to be sent for specimen. All necrotic tissue and fibrinous exudate was excised. Cultures were [address] [place] [address] OPERATIVE REPORT Name: CARLINE CURRY Room #: 420-P [facility] IN M.R.#: [id number] Admission: 01/04/18 Attend Phys: Eliseo Frank MD Discharge: 01/11/18 Date of : 42 Report #: [id number] then taken to be sent for aerobes, anaerobes, fungus and AFB. Bleeding points were made hemostatic after curetting the entire surface area of the wound. Dissection was carried down to healthy bleeding tissue. Bone was present in the lower aspect of the wound (lateral malleolus) and the marrow was debrided and sent separately. The marrow did not appear to be particularly infected; however, the marrow was soft. A rasp was then used to smooth out the edges. The Misonix device was then used on the entire surface area of the wound to prepare the wound bed for placement of the graft. The meshed PriMatrix graft was then cut to size and secured to the underlying tissue and edges of the wound with simple interrupted 2-0 Vicryl sutures. There was good coverage of the entire wound. The wound was then dressed with Adaptic, a normal saline moistened Kerlix, an ABD pad and secured with a Kerlix roll. The patient tolerated both procedures well. She was awakened, extubated, and taken to the recovery room in stable condition with no apparent intraoperative complications. <ELECTRONICALLY SIGNED> By: Logan Arthur MD, FACS 01/13/18 [id number] Logan Arthur MD, FACS /nt
[~2018-01-04 14:05] MED LIST changes: -ALLERGY RELIEF25 MG PO; -AMARYL4 MG PO; -BANOPHEN25 M1 PO; -FLUCONAZOLE 10100 MG PO; -LASIX 40 MG TAB40 M1 PO; -LINEZOLID600 MG PO; -MINOCIN100 MG PO; -NORCO 10-325 T1 EACH PO; -NOVOLIN N100 UNIT/3 SUBQ; -ONDANSETRON HCL4 M2 PO; -PROAIR HFA8.5 GM PO; -TACROLIMUS30 G1 TOP; -TRIAMCINOLONE A80 G2 TOP
[2018-01-04 14:14] VITALS: BP 157/53
[2018-01-04] MEDS ORDERED: AMARYL4 MG PO (14:45)
[2018-01-04] MEDS ORDERED: NOVOLIN N100 UNIT/3 SUBQ (14:46)
[2018-01-04 14:47] LABS: HEMATOCRIT 31.4 % (37.0-47.0); HEMOGLOBIN 10.5 gm/dL (12.0-15.0); MCH 32.2 pg (26.0-34.0); MCHC 33.4 g/dL (28.0-37.0); MCV 96.4 fL (80.0-100.0); PLATELET COUNT 168 thou/uL (150-400); RBC 3.25 mil/uL (4.20-5.00); RDW 18.3 % (10.5-14.5); WBC 9.6 thou/uL (4.0-11.0)
[2018-01-04 14:54] LABS: ANION GAP 12 mmol/L (7-16); BUN 63 mg/dL (7-18); CALCIUM 9.7 mg/dL (8.5-10.1); CHLORIDE 104 mmol/L (98-107); CO2 25 mmol/L (21-32); CREATININE 1.6 mg/dL (0.6-1.0); GLUCOSE 197 mg/dL (74-106); POTASSIUM 5.1 mmol/L (3.5-5.1); SODIUM 141 mmol/L (136-145)
[2018-01-04 15:04] LABS: MAGNESIUM 1.7 mg/dL (1.8-2.4); SGOT 16 U/L (15-37); SGPT 37 U/L (30-65); TOTAL BILIRUBIN 0.3 mg/dL (<0.1-1.0); TOTAL PROTEIN 6.8 g/dL (6.4-8.2); TROPONIN-I < 0.04 ng/mL (<0.06)
[2018-01-04 15:11] LABS: ABSOLUTE NEUTROPHILS 7.1 thou/uL (1.4-8.2)
[2018-01-04 15:13] LABS: ANISOCYTOSIS 2+; POLYCHROMASIA 1+; TARGET CELLS FEW
[2018-01-04 15:51] VITALS: BP 157/53
[2018-01-04 16:59] VITALS: BP 141/65
[2018-01-04 17:55] VITALS: BP 132/60
[2018-01-04 19:46] VITALS: BP 133/55
[2018-01-05 04:00] VITALS: BP 146/54
[2018-01-05 07:20] VITALS: BP 132/67
[2018-01-05 08:50] LABS: URINE BILIRUBIN NEGATIVE (Negative); URINE BLOOD NEGATIVE (Negative); URINE CLARITY CLEAR; URINE COLOR YELLOW; URINE GLUCOSE-RANDOM* NEGATIVE (Negative); URINE KETONES NEGATIVE (Negative); URINE LEUKOCYTES-REFLEX NEGATIVE (Negative); URINE NITRITE-REFLEX NEGATIVE (Negative); URINE PROTEIN (DIPSTICK) TRACE (Negative); URINE UROBILINOGEN 0.2 E.U./dl (0.2-1.0)
[2018-01-05 15:02] LABS: CALCIUM 9.4 mg/dL (8.5-10.1); CREATININE 1.5 mg/dL (0.6-1.0); MAGNESIUM 1.6 mg/dL (1.8-2.4); POTASSIUM 4.5 mmol/L (3.5-5.1)
[2018-01-05 15:35] VITALS: BP 103/52
[2018-01-05 19:25] VITALS: BP 115/59
[2018-01-06 03:53] VITALS: BP 118/62
[2018-01-06 07:35] VITALS: BP 123/68
[2018-01-06 15:38] VITALS: BP 110/40
[2018-01-06 20:52] VITALS: BP 114/57
[2018-01-06 23:35] VITALS: BP 106/53
[2018-01-07 03:31] VITALS: BP 144/61
[2018-01-07 08:00] VITALS: BP 151/78
[2018-01-07 15:40] VITALS: BP 124/55
[2018-01-07 19:30] VITALS: BP 137/62
[2018-01-08 04:00] VITALS: BP 182/89
[2018-01-08 08:34] VITALS: BP 156/71
[2018-01-08 20:00] VITALS: BP 122/53
[2018-01-09] VITALS (14 sets, daily range): BP systolic 90–145; BP diastolic 33–73
[2018-01-09 12:04] LABS: ABSOLUTE NEUTROPHILS 6.7 thou/uL (1.4-8.2); BASOPHILS 0.7 % (0.0-2.0); EOSINOPHILS 1.4 % (0.0-3.0); HEMATOCRIT 30.2 % (37.0-47.0); HEMOGLOBIN 9.9 gm/dL (12.0-15.0); MCH 32.9 pg (26.0-34.0); MCHC 32.9 g/dL (28.0-37.0); MONOCYTES 10.8 % (1.0-8.0); PLATELET COUNT 128 thou/uL (150-400); POLYS 68.1 % (36.0-66.0); RBC 3.02 mil/uL (4.20-5.00); RDW 18.2 % (10.5-14.5); WBC 9.8 thou/uL (4.0-11.0)
[2018-01-09 12:25] LABS: ALBUMIN 2.5 g/dL (3.4-5.0); CALCIUM 8.3 mg/dL (8.5-10.1); CREATININE 1.2 mg/dL (0.6-1.0); MAGNESIUM 1.9 mg/dL (1.8-2.4); POTASSIUM 3.8 mmol/L (3.5-5.1); TOTAL BILIRUBIN 0.3 mg/dL (<0.1-1.0); TOTAL PROTEIN 6.1 g/dL (6.4-8.2)
[2018-01-10 04:05] VITALS: BP 128/61
[2018-01-10 07:43] VITALS: BP 131/66
[2018-01-10 11:14] VITALS: BP 133/51
[2018-01-10 11:58] VITALS: BP 143/55
[2018-01-10 19:35] VITALS: BP 134/65
[2018-01-11 04:10] VITALS: BP 171/86
[2018-01-11 05:30] VITALS: BP 156/65
[2018-01-11 07:15] VITALS: BP 175/84
[2018-01-11 15:46] VITALS: BP 150/79
[2018-01-11 16:05] LABS: URINE BILIRUBIN NEGATIVE (Negative); URINE BLOOD NEGATIVE (Negative); URINE CLARITY CLEAR; URINE COLOR YELLOW; URINE GLUCOSE-RANDOM* NEGATIVE (Negative); URINE KETONES NEGATIVE (Negative); URINE LEUKOCYTES-REFLEX NEGATIVE (Negative); URINE NITRITE-REFLEX NEGATIVE (Negative); URINE PROTEIN (DIPSTICK) NEGATIVE (Negative); URINE UROBILINOGEN 0.2 E.U./dl (0.2-1.0)
[2018-01-12 16:08] LABS: KAPPA FREE LIGHT CHAINS 29.6 mg/L (3.3-19.4); KAPPA/LAMBDA RATIO 1.63 (0.26-1.65); LAMBDA FREE LIGHT CHAINS 18.2 mg/L (5.7-26.3)
[2018-01-16 15:06] LABS: GLOBULIN TOTAL 2.6 g/dL (2.2-3.9); M-SPIKE Not Observed g/dL (Not Observed)
== END 2018-01-11 17:58 | DRG 853 ==
LOC: ER 14:05 → EROBS 14:43 → 4E 14:43
PROVIDERS: Family Medicine; Internal Medicine Hematology & Oncology; Internal Medicine Infectious Disease; Nurse Practitioner Family
DX: A41.9 Sepsis, unspecified organism (principal); E43 Unspecified severe protein-calorie malnutrition; L88 Pyoderma gangrenosum; N17.9 Acute kidney failure, unspecified; L97.909 Non-pressure chronic ulcer of unspecified part of unspecified lower leg with unspecified severity; E46 Unspecified protein-calorie malnutrition; Z68.42 Body mass index [BMI] 45.0-49.9, adult; L03.116 Cellulitis of left lower limb; L03.115 Cellulitis of right lower limb; E11.9 Type 2 diabetes mellitus without complications; I10 Essential (primary) hypertension; E78.5 Hyperlipidemia, unspecified; K21.9 Gastro-esophageal reflux disease without esophagitis; E66.01 Morbid (severe) obesity due to excess calories; Z96.641 Presence of right artificial hip joint; G89.4 Chronic pain syndrome; E03.9 Hypothyroidism, unspecified; Z79.899 Other long term (current) drug therapy; Z98.42 Cataract extraction status, left eye; Z98.41 Cataract extraction status, right eye; Z90.710 Acquired absence of both cervix and uterus; Z88.2 Allergy status to sulfonamides; Z87.891 Personal history of nicotine dependence; Z82.49 Family history of ischemic heart disease and other diseases of the circulatory system
CPT/HCPCS: 10084; 50010; 50101; 50386; 53353; 53354; 54109; 56526; 57091; 62110; 62900

== ENCOUNTER → 2018-01-04 | Outpatient (CLI) | payer OTHER ==
[~2018-01-04] MED LIST changes: +ALLERGY RELIEF25 MG PO; +AMARYL4 MG PO; +BANOPHEN25 M1 PO; +COLACE100 MG PO; +FLUCONAZOLE 10100 MG PO; +INVANZ1 GM IV; +LASIX 40 MG TAB40 M1 PO; +LINEZOLID600 MG PO; +MINOCIN100 MG PO; +NORCO 10-325 T1 EACH PO; +NOVOLIN N100 UNIT/3 SUBQ; +ONDANSETRON HCL4 M2 PO; +PROAIR HFA8.5 GM PO; +PROBIOTIC1 EAC1 PO; +TACROLIMUS30 G1 TOP; +TRIAMCINOLONE A80 G2 TOP
== END ==
LOC: HYPER 12-28 16:24
DX: E11.622 Type 2 diabetes mellitus with other skin ulcer (principal); L97.812 Non-pressure chronic ulcer of other part of right lower leg with fat layer exposed; L97.321 Non-pressure chronic ulcer of left ankle limited to breakdown of skin; L88 Pyoderma gangrenosum; I10 Essential (primary) hypertension; I87.2 Venous insufficiency (chronic) (peripheral); L84 Corns and callosities; E78.5 Hyperlipidemia, unspecified; M19.90 Unspecified osteoarthritis, unspecified site; Z85.820 Personal history of malignant melanoma of skin; Z72.89 Other problems related to lifestyle; Z79.84 Long term (current) use of oral hypoglycemic drugs

== ENCOUNTER → 2018-02-01 | Outpatient (CLI) | payer OTHER ==
[~2018-02-01] MED LIST changes: +ALLERGY RELIEF25 MG PO; +AMARYL4 MG PO; +BANOPHEN25 M1 PO; +FLUCONAZOLE 10100 MG PO; +LASIX 40 MG TAB40 M1 PO; +LINEZOLID600 MG PO; +MINOCIN100 MG PO; +NORCO 10-325 T1 EACH PO; +NOVOLIN N100 UNIT/3 SUBQ; +ONDANSETRON HCL4 M2 PO; +PROAIR HFA8.5 GM PO; +TACROLIMUS30 G1 TOP; +TRIAMCINOLONE A80 G2 TOP
== END ==
LOC: HYPER 07:06
DX: E11.622 Type 2 diabetes mellitus with other skin ulcer (principal); L97.812 Non-pressure chronic ulcer of other part of right lower leg with fat layer exposed; L97.321 Non-pressure chronic ulcer of left ankle limited to breakdown of skin; L88 Pyoderma gangrenosum; I10 Essential (primary) hypertension; E78.5 Hyperlipidemia, unspecified; M19.90 Unspecified osteoarthritis, unspecified site; Z79.84 Long term (current) use of oral hypoglycemic drugs

== ENCOUNTER → 2018-02-22 | Outpatient (CLI) | payer OTHER ==
[~2018-02-22] MED LIST changes: -ALLERGY RELIEF25 MG PO; -BANOPHEN25 M1 PO; -FLUCONAZOLE 10100 MG PO; -LASIX 40 MG TAB40 M1 PO; -LINEZOLID600 MG PO; -MINOCIN100 MG PO; -NORCO 10-325 T1 EACH PO; -ONDANSETRON HCL4 M2 PO; -PROAIR HFA8.5 GM PO; -TACROLIMUS30 G1 TOP; -TRIAMCINOLONE A80 G2 TOP
== END ==
LOC: HYPER 07:49
DX: E11.622 Type 2 diabetes mellitus with other skin ulcer (principal); L97.321 Non-pressure chronic ulcer of left ankle limited to breakdown of skin; L97.812 Non-pressure chronic ulcer of other part of right lower leg with fat layer exposed; L88 Pyoderma gangrenosum; I10 Essential (primary) hypertension; E78.5 Hyperlipidemia, unspecified; M19.90 Unspecified osteoarthritis, unspecified site; Z85.828 Personal history of other malignant neoplasm of skin; Z79.84 Long term (current) use of oral hypoglycemic drugs

== ENCOUNTER 2018-03-10 21:12 | Inpatient (IN) | payer OTHER ==
[~2018-03-10] VITALS: Ht 160 cm; Wt 115.7 kg
--- NOTE | ~2018-03-10 | HC ---
[facility] [place] [address] CONSULTATION Name: CARLINE CURRY Room #: 454-P ADM IN M.R.#: [id number] Admission: 03/10/18 Attend Phys: Eliseo Frank MD Discharge: Date of : 42 Report #: [id number] THIS REPORT FOR: //name// CC: Olaf Frank REASON FOR CONSULTATION: Acute kidney injury. HISTORY OF PRESENT ILLNESS: A very complex patient with past medical history of diabetes mellitus, hypertension and pyoderma gangrenosum. Not known to have any previous kidney problems. She presented with worsening lower extremity edema and was found to have an elevated creatinine. She is also known to have monoclonal gammopathy. She denies previous awareness of kidney problems. In fact, back in January, when she was in the hospital, she had a very mildly elevated creatinine and this was 1.2 with the worst being 1.6. No nonsteroidal anti-inflammatory medications intake. However she was started on high dose cyclosporin for her LE Pyoderma by her wound care team She had been evaluated by Hematology in the past for this monoclonal gammopathy. I am not really sure what the plan is regarding the perspective. She presented a few days ago complaining of worsening lower extremity edema and was called by her primary care physician, Dr. Frank, that her kidney levels are elevated and she needs to go to the hospital for further evaluation and management. She is chronically utilizing oxygen. She denies fever or chills. No reported urinary tract infection symptoms. She has had diarrhea a couple of weeks ago. The patient was recently discharged from the hospital after being treated for what was described as urinary tract infection and elevated kidney numbers. In fact, she was discharged on 01/11/2018 after being treated for the cellulitis. PAST MEDICAL HISTORY: 1. Diabetes mellitus. 2. Hypertension. 3. Chronic lower extremity cellulitis. 4. Bilateral lower extremity edema. 5. Pyoderma gangrenosum. 6. Repeated episodes of acute kidney injury. 7. Status post debridement of lower extremity wounds. 8. Hyperlipidemia. 9. Post right hip replacement. 10. Hysterectomy. 11. Cataract surgery. 12. Hypothyroidism. 13. Bilateral shoulder skin cancer. 14. Obstructive sleep apnea. MEDICATIONS: [facility] [address] [place] [address] CONSULTATION Name: CARLINE CURRY Room #: 454-P [facility] IN .R.#: [id number] Admission: 03/10/18 Attend Phys: Eliseo Frank MD Discharge: Date of : 42 Report #: [id number] 1. Pantoprazole. 2. Lasix. 3. Glimepiride. 4. Losartan. 5. Levothyroxine. 6. Multivitamin. FAMILY HISTORY: Significant for hypertension. REVIEW OF SYSTEMS: GENERAL: No fever or chills. CARDIOVASCULAR: No chest pain or palpitation. PULMONARY: No cough or hemoptysis. GASTROINTESTINAL: As per the history of present illness. GENITOURINARY: No frequency or urgency. MUSCULOSKELETAL: Extensive bilateral lower extremity edema, swelling and wounds. PHYSICAL EXAMINATION: GENERAL: Alert, oriented, in no apparent distress. VITAL SIGNS: Temperature 37.1, blood pressure 150/66. HEAD AND NECK: No jugular venous distention. No bruit, no thyromegaly. CHEST: Clear to auscultation. CARDIOVASCULAR: Regular, with no rub. ABDOMEN: Soft, nontender. LOWER EXTREMITIES: Dressing and Da wraps applied bilaterally. LABORATORY DATA: Laboratory values reviewed. Potassium is 5.2, BUN is 41 and creatinine is 2.4. White blood cell count is 8.1. She is anemic with hemoglobin of 8.6. ASSESSMENT, IMPRESSION AND PLAN: 1. Acute kidney injury. 2. Hyperkalemia. 3. Bilateral lower extremity wounds and cellulitis. 4. Monoclonal gammopathy. 5. Investigate the source of her acute kidney injury with appropriate laboratory values. 6. Avoid nephrotoxins. 7. Hold diuretics. 8. Hold ARB. 9. Gentle IV fluids. 10. I am concerned about her history of monoclonal gammopathy and will need to investigate further into that. This might be just an incidental finding. She had seen the Hematology team in the past. I am not really sure what the long-term plan is, however, we will discuss with the other team members. [address] [address] CONSULTATION Name: CARLINE CURRY Room #: 454-P ADM IN M.R.#: [id number] Admission: 03/10/18 Attend Phys: Eliseo Frank MD Discharge: Date of : 42 Report #: [id number] 11. Strict input and output. 12. Routine care of an acute kidney injury patient. <ELECTRONICALLY SIGNED> By: Baljeet De Los Santos MD 03/15/18 0817 [id number] Baljeet De Los Santos MD /nt
--- NOTE | ~2018-03-10 | HC ---
[facility] [place] [address] CONSULTATION Name: CARLINE CURRY Room #: 454-P ADM IN M.R.#: [id number] Admission: 03/10/18 Attend Phys: Eliseo Frank MD Discharge: Date of : 42 Report #: [id number] THIS REPORT FOR: //name// CC: Eliseo Frank DATE OF SERVICE: 03/13/2018 WOUND CARE CONSULTATION PERSONAL PHYSICIAN: Eliseo Frank M.D. CHIEF COMPLAINT: Lower extremity ulcerations in the setting of pyoderma gangrenosum. HISTORY OF PRESENT ILLNESS: This is a 77-year-old white female who I have been following as an outpatient for chronic ulcerations on the bilateral lower extremities, which are near circumferential secondary to pyoderma gangrenosum. Given the fact that over the past 2 months, her ulcerations have gotten progressively worse with exposed tendons and the patient failed a course of prednisone, it was felt the only other option we had was cyclosporine. The patient was initially dosed with that at 5 mg/kg and has been on that now for approximately one month. I saw the patient last week in clinic and she had some fluid overload with edema in her lower extremities and my concern was that even though the last kidney function test was 1.27, the patient possibly has retained fluid from kidneys. She went and saw her primary care physician, who Tuesday evening called her back and said her kidney function was up to the previous baseline for the past month and he recommended she come to the hospital to be evaluated. The patient was started on IV antibiotics as well as oxygen therapy and her cyclosporine has now been held for over 3 days. The patient actually this morning says she feels much better, is much more positive about her medical conditions and the son who is with her as well stating that he thinks that his mother is much better than she has been over the past several days. We had a long talk last week about cyclosporine possibly causing damage to the kidneys and that is why we are following the kidney function every 2 weeks with home health nurses, and before she leaves the hospital at this time, we will have Dermatology see her for a possible advice on other types of medicines that we can take for her progressive pyoderma gangrenosum. The patient has no other new ulcerations that she is concerned about. PAST MEDICAL HISTORY: Significant for chronic ulcerations, bilateral lower extremities, secondary to pyoderma gangrenosum on biopsy. History of recent kidney injury, chronic lower extremity edema secondary to venous insufficiency, hyperlipidemia, previous hysterectomy, sleep apnea with a CPAP and hypertension. CURRENT MEDICATIONS: Multiple. I reviewed the patient's medication list. Once again, the patient had been on cyclosporine, which is now on hold [place] [address] [place] [address] CONSULTATION Name: CARLINE CURRY Room #: 454-P ADM IN M.R.#: [id number] Admission: 03/10/18 Attend Phys: Eliseo Frank MD Discharge: Date of : 42 Report #: [id number] DRUG ALLERGIES: SULFA. SOCIAL HISTORY: The patient has a remote history of smoking, quitting several years ago. Drinks alcohol socially. The patient's son is in the room and is very involved in the patient's care. FAMILY HISTORY: Significant for heart disease. REVIEW OF SYSTEMS: CONSTITUTIONAL: The patient denies fevers or chills. NEUROLOGIC: The patient complains of overall generalized weakness, with no isolated weakness in the arms or legs. EYES: No complaints. ENT: No complaints. CARDIAC: The patient has chronic lower extremity edema, greater in the past several days, but no chest pain or palpitation. RESPIRATORY: The patient complains of mild shortness of breath and is now requiring oxygen, but denies cough or wheezes. GASTROINTESTINAL: The patient denies nausea, vomiting or abdominal pain, but does have a recent history of diarrhea and anorexia. GENITOURINARY: The patient denies urgency or frequency, but has been recently treated for urinary tract infection and has a Fernandez catheter in place. MUSCULOSKELETAL: No complaints. SKIN: Open ulcerations on bilateral lower extremities, which are near circumferential, just above the ankles. PHYSICAL EXAMINATION: VITAL SIGNS: Temperature 36.9, pulse 77, respiratory rate 19 and blood pressure 144/66. GENERAL: This is alert, oriented x 3, pleasant, chronically ill-appearing white female, who is in mild distress secondary to symptoms. HEENT: Normocephalic, atraumatic. Mucous membranes are somewhat dry. Pupils are round. Sclerae white. NECK: Supple, without JVD. LUNGS: Slightly diminished breath sounds heard throughout, with occasional scattered wheeze. CHEST: Nontender. HEART: Regular, without murmur. ABDOMEN: Soft, obese, nontender. EXTREMITIES: The patient moves all extremities spontaneously. The patient has 2+ edema in bilateral lower extremities. Distal neurovascular is intact. Evaluation of bilateral lower extremities reveals near circumferential chronic ulcerations. There is exposed anterior tibialis tendon on the right lower extremity. Otherwise, these ulcerations are full thickness down into deep subcutaneous tissues on both sides with exposed of the tendon on the right side. [address] [address] CONSULTATION Name: CARLINE CURRY Room #: 454-P ADM IN M.R.#: [id number] Admission: 03/10/18 Attend Phys: Eliseo Frank MD Discharge: Date of : 42 Report #: [id number] There is minimal necrotic tissue. There is moderate drainage without odor. The drainage itself is seropurulent. There is no significant tunneling or undermining. Bilateral heels are intact. Toes are all intact. NEUROLOGIC: Cranial nerves 2-12 grossly intact. Motor and sensory grossly intact. LABORATORY DATA: White count 7.1, hemoglobin 8.2. BUN 35. Creatinine now down to 2.0. It got as high as 2.7 on the day of admission. It has come down consistently since then. Albumin 2.1. Chest x-ray shows bibasilar patchy infiltrates, consistent with possible interstitial lung disease. No significant other infiltrates or signs of fluid. WOUND CARE COURSE: I spoke at length with the patient and her son. We stated at this time we do not have Iodoflex which the patient has been using through home health, changes twice weekly. We will go to an Optifoam Ag dressing while she is here. We will watch the patient very closely. I appreciate Nephrology's input as well as we will consult Dr. Keyur Tenorio, armhole baster hand, for further evaluation and guidance for the treatment of pyoderma gangrenosum. IMPRESSION: 1. Chronic ulcerations, bilateral lower extremities, just above the ankle, with full thickness and limited exposure of tendon on the right and subcutaneous tissue on the left, with mild underlying cellulitis. 2. Pyoderma gangrenosum. 3. Acute kidney injury secondary to treatment of pyoderma gangrenosum with cyclosporine. 4. Protein-calorie malnutrition - severe with albumin of 2.1. 5. Hypertension. 6. Generalized debility. PLAN: Described in length as above. We will continue to follow the patient for wound care while she is here. We will make sure we come up with a definite plan for treatment of her pyoderma gangrenosum before she is discharged after I have conversed with all the other subspecialty groups. I have spoken with Dr. Frank about this patient. I will continue to follow the patient. By: [id number] Aleksandar Deleon MD /nt
[2018-03-10 22:03] VITALS: BP 143/63
[2018-03-10] MEDS ORDERED: ONDANSETRON HCL4 M2 PO (22:13)
[2018-03-10 22:57] LABS: HEMATOCRIT 29.5 % (37.0-47.0); HEMOGLOBIN 9.3 gm/dL (12.0-15.0); MCH 27.5 pg (26.0-34.0); MCHC 31.5 g/dL (28.0-37.0); MCV 87.5 fL (80.0-100.0); PLATELET COUNT 363 thou/uL (150-400); RBC 3.37 mil/uL (4.20-5.00); RDW 18.9 % (10.5-14.5); WBC 7.8 thou/uL (4.0-11.0)
[2018-03-10 23:15] LABS: CALCIUM 9.2 mg/dL (8.5-10.1); CREATININE 2.7 mg/dL (0.6-1.0)
[2018-03-10 23:19] LABS: ALBUMIN 2.5 g/dL (3.4-5.0); DIRECT BILIRUBIN 0.3 mg/dL (<0.1-0.3); POTASSIUM 5.4 mmol/L (3.5-5.1); TOTAL BILIRUBIN 0.5 mg/dL (<0.1-1.0); TOTAL PROTEIN 7.3 g/dL (6.4-8.2)
[2018-03-10 23:37] LABS: ABSOLUTE NEUTROPHILS 3.9 thou/uL (1.4-8.2); ANISOCYTOSIS 2+; METAMYELOCYTES 2 %; POLYCHROMASIA 1+
[2018-03-11 01:07] VITALS: BP 135/65
[2018-03-11 01:40] VITALS: BP 154/80
[2018-03-11 03:29] LABS: URINE BILIRUBIN NEGATIVE (Negative); URINE BLOOD NEGATIVE (Negative); URINE CLARITY CLEAR; URINE COLOR YELLOW; URINE GLUCOSE-RANDOM* NEGATIVE (Negative); URINE KETONES NEGATIVE (Negative); URINE LEUKOCYTES NEGATIVE (Negative); URINE NITRITE NEGATIVE (Negative); URINE PROTEIN (DIPSTICK) NEGATIVE (Negative); URINE SPECIFIC GRAVITY <= 1.005 (1.005-1.035); URINE UROBILINOGEN 0.2 E.U./dl (0.2-1.0)
[2018-03-11 03:40] VITALS: BP 131/60
[2018-03-11 08:00] VITALS: BP 137/69
[2018-03-11 08:21] LABS: HEMATOCRIT 26.9 % (37.0-47.0); HEMOGLOBIN 8.6 gm/dL (12.0-15.0); MCH 27.7 pg (26.0-34.0); MCHC 31.8 g/dL (28.0-37.0); MCV 87.1 fL (80.0-100.0); PLATELET COUNT 319 thou/uL (150-400); RBC 3.09 mil/uL (4.20-5.00); RDW 18.9 % (10.5-14.5); WBC 8.1 thou/uL (4.0-11.0)
[2018-03-11 08:25] LABS: CALCIUM 9.2 mg/dL (8.5-10.1); CREATININE 2.6 mg/dL (0.6-1.0); POTASSIUM 4.8 mmol/L (3.5-5.1)
[2018-03-11 09:01] LABS: ABSOLUTE NEUTROPHILS 4.5 thou/uL (1.4-8.2); ANISOCYTOSIS 2+; METAMYELOCYTES 1 %
[2018-03-11 09:02] LABS: HYPOCHROMASIA 1+; POLYCHROMASIA OCCASIONAL
[2018-03-11 16:00] VITALS: BP 133/58
[2018-03-11 19:45] VITALS: BP 127/57
[2018-03-11 23:25] LABS: URINE POTASSIUM-RANDOM* 44.4 mmol/L
[2018-03-12 04:58] VITALS: BP 142/64
[2018-03-12 06:05] LABS: ALBUMIN 2.2 g/dL (3.4-5.0); CALCIUM 8.4 mg/dL (8.5-10.1); CREATININE 2.4 mg/dL (0.6-1.0); PHOSPHORUS 5.4 mg/dL (2.5-4.9); POTASSIUM 5.2 mmol/L (3.5-5.1)
[2018-03-12 08:44] VITALS: BP 150/66
[2018-03-12 16:18] VITALS: BP 140/60
[2018-03-12 19:31] VITALS: BP 132/65
[2018-03-13 04:27] VITALS: BP 117/69
[2018-03-13 06:08] LABS: HEMOGLOBIN 8.2 gm/dL (12.0-15.0); MCH 27.8 pg (26.0-34.0); MCHC 31.5 g/dL (28.0-37.0); MCV 88.1 fL (80.0-100.0); PLATELET COUNT 268 thou/uL (150-400); RBC 2.95 mil/uL (4.20-5.00); WBC 7.1 thou/uL (4.0-11.0)
[2018-03-13 06:27] LABS: ALBUMIN 2.1 g/dL (3.4-5.0); CALCIUM 8.6 mg/dL (8.5-10.1); PHOSPHORUS 4.9 mg/dL (2.5-4.9); POTASSIUM 4.7 mmol/L (3.5-5.1)
[2018-03-13 07:10] VITALS: BP 158/83
[2018-03-13 07:27] LABS: ABSOLUTE NEUTROPHILS 3.8 thou/uL (1.4-8.2); METAMYELOCYTES 1 %
[2018-03-13 07:28] LABS: ANISOCYTOSIS 2+
[2018-03-13 15:38] VITALS: BP 144/66
[2018-03-13 16:12] LABS: COMPLEMENT-C3 146 mg/dL (82-167); COMPLEMENT-C4 19 mg/dL (14-44)
[2018-03-13 18:09] LABS: GLOBULIN TOTAL 3.3 g/dL (2.2-3.9); M-SPIKE Not Observed g/dL (Not Observed)
[2018-03-13 20:00] VITALS: BP 134/64
[2018-03-14 04:38] VITALS: BP 141/61
[2018-03-14 06:18] LABS: CALCIUM 8.6 mg/dL (8.5-10.1); CREATININE 1.8 mg/dL (0.6-1.0); PHOSPHORUS 4.8 mg/dL (2.5-4.9); POTASSIUM 4.9 mmol/L (3.5-5.1)
[2018-03-14 07:40] VITALS: BP 144/43
[2018-03-14 12:11] LABS: KAPPA FREE LIGHT CHAINS 81.2 mg/L (3.3-19.4); KAPPA/LAMBDA RATIO 1.48 (0.26-1.65); LAMBDA FREE LIGHT CHAINS 54.9 mg/L (5.7-26.3)
[2018-03-14 15:30] VITALS: BP 146/54
[2018-03-14 19:48] VITALS: BP 122/66
[2018-03-15 04:00] VITALS: BP 146/61
[2018-03-15 06:12] LABS: ALBUMIN 2.1 g/dL (3.4-5.0); CALCIUM 8.4 mg/dL (8.5-10.1); CREATININE 1.8 mg/dL (0.6-1.0); POTASSIUM 4.9 mmol/L (3.5-5.1)
[2018-03-15] MEDS ORDERED: BANOPHEN25 M1 PO (07:54)
[2018-03-15] MEDS ORDERED: LASIX 40 MG TAB40 M1 PO (07:55)
[2018-03-15] MEDS ORDERED: TRIAMCINOLONE A80 G2 TOP (07:56)
[2018-03-15] MEDS ORDERED: PROAIR HFA8.5 GM PO (08:01)
[2018-03-15 08:38] VITALS: BP 152/63
[2018-03-15 10:08] LABS: ANA INTERPRETATION Negative (Negative)
[2018-03-15 12:10] VITALS: BP 152/63
[2018-03-15 14:13] LABS: GLOMERULR BASEM MEMBRN AB 3 units (0-20)
[2018-03-15 14:49] VITALS: BP 152/63
== END 2018-03-15 16:05 | disposition home health service (06) | DRG 682 ==
LOC: ER 21:12 → EROBS 23:37 → 4W 23:37
PROVIDERS: Emergency Medicine; Family Medicine; Hospitalist; Nurse Practitioner Family
DX: N17.9 Acute kidney failure, unspecified (principal); E43 Unspecified severe protein-calorie malnutrition; Z68.42 Body mass index [BMI] 45.0-49.9, adult; L03.116 Cellulitis of left lower limb; L03.115 Cellulitis of right lower limb; L97.828 Non-pressure chronic ulcer of other part of left lower leg with other specified severity; L97.818 Non-pressure chronic ulcer of other part of right lower leg with other specified severity; L88 Pyoderma gangrenosum; N39.0 Urinary tract infection, site not specified; E11.22 Type 2 diabetes mellitus with diabetic chronic kidney disease; I12.9 Hypertensive chronic kidney disease with stage 1 through stage 4 chronic kidney disease, or unspecified chronic kidney disease; N18.9 Chronic kidney disease, unspecified; D63.8 Anemia in other chronic diseases classified elsewhere; D47.2 Monoclonal gammopathy; E78.5 Hyperlipidemia, unspecified; E03.9 Hypothyroidism, unspecified; G47.33 Obstructive sleep apnea (adult) (pediatric); E66.9 Obesity, unspecified; E87.5 Hyperkalemia; K21.9 Gastro-esophageal reflux disease without esophagitis; Z96.641 Presence of right artificial hip joint; T45.1X5A Adverse effect of antineoplastic and immunosuppressive drugs, initial encounter; Y92.89 Other specified places as the place of occurrence of the external cause; Z87.891 Personal history of nicotine dependence; Z85.828 Personal history of other malignant neoplasm of skin; Z87.81 Personal history of (healed) traumatic fracture; Z90.710 Acquired absence of both cervix and uterus; Z98.42 Cataract extraction status, left eye; Z98.41 Cataract extraction status, right eye; Z79.4 Long term (current) use of insulin; Z79.82 Long term (current) use of aspirin; Z79.899 Other long term (current) drug therapy; Z88.2 Allergy status to sulfonamides; Z82.49 Family history of ischemic heart disease and other diseases of the circulatory system
CPT/HCPCS: 10045

== ENCOUNTER 2018-03-19 09:17 | Inpatient (IN) | payer OTHER ==
[~2018-03-19] VITALS: Ht 160 cm; Wt 115.7 kg
--- NOTE | ~2018-03-19 | EKG ---
[address] [place] [address] ELECTROCARDIOGRAM REPORT Name: CARLINE CURRY Room #: 360-P ADM IN M.R.#: [id number] Admission: 03/19/18 Attend Phys: Gibran Campbell MD Discharge: Date of : 42 Report #: [id number] THIS REPORT FOR: //name// [facility] ED Test Date: 2018-03-19 Test Time: 10:13:27 Pat Name: CARLINE CURRY Department: Room: Gender: F Clinical Dietician: Cole PULIDO : 1940 Requested By: Shyla Roberson Order Number: [id number] MD: Jaime Cintron Measurements Intervals Sargent Rate: 91 P: 16 KS: 172 QRS: -23 QRSD: 91 T: -2 QT: 380 QTc: 468 Interpretive Statements Sinus rhythm Borderline left axis deviation Poor R wave progression Nonspecific T wave abnormality Compared to ECG 01/04/2018 14:28:58 Atrial premature complex(es) no longer present Electronically Signed On 03-20-2018 8:04:59 CDT by Jaime Cintorn [email or web address] <ELECTRONICALLY SIGNED> By: Jaime Cintron MD, [facility] 03/20/18 0804 [id number] [id number] Jaime Cintron MD, [facility] /EPI
--- NOTE | ~2018-03-19 | 2DMMODE ---
[facility] [address] [facility] [place] [address] 2 D/M-MODE ECHOCARDIOGRAM Name: CARLINE CURRY Room #: 360-P ADM IN ..#: [id number] Admission: 03/19/18 Attend Phys: Gibran Campbell MD Discharge: Date of : 42 Date of Service: 03/22/18 1553 Report #: [id number] THIS REPORT FOR: //name// APPROVED REPORT Study performed: 03/22/2018 14:04:30 EXAM: Comprehensive 2D, Doppler, and color-flow Echocardiogram Patient Location: Bedside Room #: 360 Status: routine BSA: 2.12 HR: 82 bpm BP: 160/90 mmHg Other Information Study Quality: Fair Indications Congestive Heart Failure Diabetes Hypertension/HDD 2D Dimensions LVEF(%): 49.55 (>50%) IVSd: 12.62 (7-11mm) LVOT Diam: 20.36 (18-24mm) LVDd: 54.06 mm PWd: 12.24 (7-11mm) Ascending Ao: 36.44 (22-36mm) LVDs: 40.35 (25-40mm) Aortic Root: 28.34 mm IVC: 25.00 mm Escobedo's LVEF: 49.55 % Aortic Valve AoV Peak Tevin.: 1.38 m/s AO Peak Gr.: 7.66 mmHg LVOT Max P.55 mmHg LVOT Max V: 0.94 m/s LILIANE Vmax: 2.22 cm2 Mitral Valve E/A Ratio: 0.7 MV Decel. Time: 336.05 ms MV E Max Tevin.: 0.49 m/s MV A Tevin.: 0.74 m/s MV PHT: 97.46 ms IVRT: 129.18 ms [facility] [address] [place] [address] 2 D/M-MODE ECHOCARDIOGRAM Name: ANIBAL CURRYCY Room #: [address] [place] [address] IN ..#: [id number] Admission: 03/19/18 Attend Phys: Gibran Campbell MD Discharge: Date of : 42 Date of Service: 03/22/18 1553 Report #: [id number] Pulmonary Valve PV Peak Tevin.: 1.03 m/s PV Peak Gr.: 4.28 mmHg Tricuspid Valve TR Peak Tevin.: 3.41 m/s TR Peak Gr.: 46.63 mmHg PA Pressure: 57.00 mmHg Left Ventricle The left ventricle is normal size. There is global hypokinesis of the left ventricle. Mild concentric left ventricular hypertrophy. Left ventricular systolic function is mildly decreased. LVEF is 45%. Grade I - abnormal relaxation pattern. Right Ventricle Right ventricle is dilated. Atria Left atrium is dilated. Right atrium is dilated. Aortic Valve The aortic valve is normal in structure. Aortic valve is calcified. No aortic regurgitation is present. There is no aortic valvular stenosis. Mitral Valve The mitral valve is normal in structure. Mild mitral regurgitation. No evidence of mitral valve stenosis. Tricuspid Valve The tricuspid valve is normal in structure. There is mild to moderate tricuspid regurgitation. Estimated PAP 57 mmHg. There is moderate pulmonary hypertension. Pulmonic Valve The pulmonary valve is normal in structure. There is no pulmonic valvular regurgitation. Great Vessels The aortic root is normal in size. IVC is dilated and collapses <50% with inspiration. Pericardium There is no pericardial effusion. [facility] [address] [place] [address] 2 D/M-MODE ECHOCARDIOGRAM Name: CARLINE CURRY Room #: 360-P ADM IN M.R.#: [id number] Admission: 03/19/18 Attend Phys: Gibran Campbell MD Discharge: Date of : 44 Date of Service: 03/22/181552 Report #: [id number] <Conclusion> The left ventricle is normal size. Mild concentric left ventricular hypertrophy. Left ventricular systolic function is mildly decreased. Grade I - abnormal relaxation pattern. Right ventricle is dilated. Left atrium is dilated. There is no aortic valvular stenosis. Mild mitral regurgitation. There is mild to moderate tricuspid regurgitation. Estimated PAP 57 mmHg. There is moderate pulmonary hypertension. <ELECTRONICALLY SIGNED> By: Corbin Nielsen MD 03/22/181552 52 [id number] Corbin Nielsen MD /JULIETA
[~2018-03-19 09:17] MED LIST changes: +BANOPHEN25 M1 PO; +LASIX 40 MG TAB40 M1 PO; +ONDANSETRON HCL4 M2 PO; +PROAIR HFA8.5 GM PO; +TRIAMCINOLONE A80 G2 TOP
[2018-03-19 09:22] VITALS: BP 159/77
[2018-03-19] MEDS ORDERED: MINOCIN100 MG PO (10:03)
[2018-03-19] MEDS ORDERED: ALLERGY RELIEF25 MG PO (10:04)
[2018-03-19] MEDS ORDERED: LASIX 40 MG TAB40 M2 PO (10:04)
[2018-03-19] MEDS ORDERED: TACROLIMUS30 G1 TOP (10:04)
[2018-03-19 10:57] LABS: ABSOLUTE NEUTROPHILS 9.8 thou/uL (1.4-8.2); BASOPHILS 0.3 % (0.0-2.0); HEMATOCRIT 28.7 % (37.0-47.0); HEMOGLOBIN 8.8 gm/dL (12.0-15.0); LYMPHOCYTES 5.2 % (24.0-44.0); MCH 26.8 pg (26.0-34.0); MCHC 30.8 g/dL (28.0-37.0); MCV 87.2 fL (80.0-100.0); MONOCYTES 10.1 % (1.0-8.0); PLATELET COUNT 232 thou/uL (150-400); POLYS 79.4 % (36.0-66.0); RDW 19.8 % (10.5-14.5); WBC 12.4 thou/uL (4.0-11.0)
[2018-03-19 11:10] LABS: ANION GAP 10 mmol/L (7-16); BUN 37 mg/dL (7-18); CALCIUM 8.7 mg/dL (8.5-10.1); CHLORIDE 102 mmol/L (98-107); CO2 25 mmol/L (21-32); CREATININE 1.7 mg/dL (0.6-1.0); GLUCOSE 206 mg/dL (74-106); POTASSIUM 5.6 mmol/L (3.5-5.1); SODIUM 137 mmol/L (136-145)
[2018-03-19 11:18] LABS: TROPONIN-I < 0.04 ng/mL (<0.06)
[2018-03-19 11:36] LABS: ANISOCYTOSIS 1+; POIKILOCYTOSIS SLIGHT; POLYCHROMASIA SLIGHT
[2018-03-19 12:46] VITALS: BP 110/59
[2018-03-19 13:38] VITALS: BP 102/69
[2018-03-19 15:05] LABS: URINE BILIRUBIN NEGATIVE (Negative); URINE BLOOD NEGATIVE (Negative); URINE CLARITY CLEAR; URINE COLOR YELLOW; URINE GLUCOSE-RANDOM* NEGATIVE (Negative); URINE KETONES NEGATIVE (Negative); URINE LEUKOCYTES-REFLEX NEGATIVE (Negative); URINE NITRITE-REFLEX NEGATIVE (Negative); URINE PROTEIN (DIPSTICK) 1+ (Negative); URINE UROBILINOGEN 0.2 E.U./dl (0.2-1.0)
[2018-03-19 15:14] LABS: BACTERIA-REFLEX 1-9 Few /HPF (None Seen); CASTS None Seen /LPF (None Seen); CRYSTALS None Seen /LPF (None Seen); SQUAMOUS 0-3 Few /LPF (0-3); URINE RBC None Seen /HPF (0-2); URINE WBC-REFLEX 0-5 Rare /HPF (0-5)
[2018-03-19 15:20] VITALS: BP 151/70
[2018-03-19 19:30] VITALS: BP 126/65
[2018-03-20 04:35] VITALS: BP 150/75
[2018-03-20 06:07] LABS: HEMATOCRIT 25.6 % (37.0-47.0); HEMOGLOBIN 7.9 gm/dL (12.0-15.0); MCH 27.1 pg (26.0-34.0); MCV 87.3 fL (80.0-100.0); RBC 2.93 mil/uL (4.20-5.00); RDW 19.8 % (10.5-14.5); WBC 10.5 thou/uL (4.0-11.0)
[2018-03-20 06:22] LABS: CALCIUM 8.5 mg/dL (8.5-10.1); CREATININE 1.6 mg/dL (0.6-1.0); POTASSIUM 4.9 mmol/L (3.5-5.1)
[2018-03-20 09:23] VITALS: BP 154/74
[2018-03-20 12:00] VITALS: BP 147/72; BP 154/74
[2018-03-20 17:42] VITALS: BP 150/85
[2018-03-20 18:55] VITALS: BP 140/75
[2018-03-21 04:20] VITALS: BP 139/74
[2018-03-21 06:11] LABS: CALCIUM 8.5 mg/dL (8.5-10.1); CREATININE 1.4 mg/dL (0.6-1.0); POTASSIUM 4.8 mmol/L (3.5-5.1)
[2018-03-21 08:46] VITALS: BP 125/58
[2018-03-21 11:44] VITALS: BP 158/82
[2018-03-21 21:24] VITALS: BP 135/74
[2018-03-22 04:00] VITALS: BP 158/77
[2018-03-22 09:40] VITALS: BP 137/62
[2018-03-22 12:30] VITALS: BP 160/90
[2018-03-22 19:27] VITALS: BP 146/80
[2018-03-23 04:00] VITALS: BP 153/79
[2018-03-23 06:43] LABS: CALCIUM 8.3 mg/dL (8.5-10.1); CREATININE 1.4 mg/dL (0.6-1.0); POTASSIUM 4.4 mmol/L (3.5-5.1)
[2018-03-23 08:11] VITALS: BP 151/77
[2018-03-23 12:15] VITALS: BP 161/74
[2018-03-23 17:42] VITALS: BP 143/97
[2018-03-23 17:45] VITALS: BP 160/70
[2018-03-23 19:05] VITALS: BP 161/77
[2018-03-24 03:50] VITALS: BP 159/79
[2018-03-24 08:42] LABS: CALCIUM 8.7 mg/dL (8.5-10.1); CREATININE 1.3 mg/dL (0.6-1.0)
[2018-03-24 08:49] LABS: POTASSIUM 5.2 mmol/L (3.5-5.1)
[2018-03-24 11:43] VITALS: BP 140/70
[2018-03-24 12:35] VITALS: BP 140/70
[2018-03-24 15:18] VITALS: BP 151/73
[2018-03-24 16:05] VITALS: BP 151/73
[2018-03-24 19:35] VITALS: BP 147/81
[2018-03-25 03:35] VITALS: BP 140/69
[2018-03-25] MEDS ORDERED: LINEZOLID600 MG PO (07:25)
[2018-03-25] MEDS ORDERED: FLUCONAZOLE 10100 MG PO (07:25)
[2018-03-25] MEDS ORDERED: NORCO 10-325 T1 EACH PO (07:26)
[2018-03-25 07:33] VITALS: BP 154/86
== END 2018-03-25 15:02 | disposition home health service (06) | DRG 871 ==
LOC: ER 09:17 → 3W 12:10 → EROBS 12:10 → 3W 15:19
PROVIDERS: Emergency Medicine; Family Medicine; Hospitalist
DX: A41.9 Sepsis, unspecified organism (principal); J96.21 Acute and chronic respiratory failure with hypoxia; J18.9 Pneumonia, unspecified organism; I50.33 Acute on chronic diastolic (congestive) heart failure; L88 Pyoderma gangrenosum; L97.929 Non-pressure chronic ulcer of unspecified part of left lower leg with unspecified severity; L97.919 Non-pressure chronic ulcer of unspecified part of right lower leg with unspecified severity; N17.9 Acute kidney failure, unspecified; I13.0 Hypertensive heart and chronic kidney disease with heart failure and stage 1 through stage 4 chronic kidney disease, or unspecified chronic kidney disease; E78.5 Hyperlipidemia, unspecified; Z96.641 Presence of right artificial hip joint; E03.9 Hypothyroidism, unspecified; K21.9 Gastro-esophageal reflux disease without esophagitis; N18.9 Chronic kidney disease, unspecified; R19.7 Diarrhea, unspecified; E11.22 Type 2 diabetes mellitus with diabetic chronic kidney disease; Z79.82 Long term (current) use of aspirin; Z79.899 Other long term (current) drug therapy; Z88.8 Allergy status to other drugs, medicaments and biological substances; Z90.710 Acquired absence of both cervix and uterus; Z98.42 Cataract extraction status, left eye; Z98.41 Cataract extraction status, right eye; Z88.2 Allergy status to sulfonamides; Z87.891 Personal history of nicotine dependence; Z82.49 Family history of ischemic heart disease and other diseases of the circulatory system
CPT/HCPCS: 10879

== ENCOUNTER → 2018-04-13 | Outpatient (CLI) | payer OTHER ==
[~2018-04-13] MED LIST changes: +ALLERGY RELIEF25 MG PO; +FLUCONAZOLE 10100 MG PO; +LINEZOLID600 MG PO; +MINOCIN100 MG PO; +NORCO 10-325 T1 EACH PO; +TACROLIMUS30 G1 TOP
== END ==
LOC: HYPER 06:50
DX: E11.622 Type 2 diabetes mellitus with other skin ulcer (principal); L97.812 Non-pressure chronic ulcer of other part of right lower leg with fat layer exposed; L97.321 Non-pressure chronic ulcer of left ankle limited to breakdown of skin; L89.890 Pressure ulcer of other site, unstageable; L88 Pyoderma gangrenosum; L84 Corns and callosities; I10 Essential (primary) hypertension; E78.5 Hyperlipidemia, unspecified; M19.90 Unspecified osteoarthritis, unspecified site; Z79.84 Long term (current) use of oral hypoglycemic drugs; Z68.41 Body mass index [BMI] 40.0-44.9, adult; Z85.828 Personal history of other malignant neoplasm of skin; Z98.49 Cataract extraction status, unspecified eye

== ENCOUNTER → 2018-04-20 | Outpatient (CLI) | payer OTHER | LOC: HYPER 07:03 → RAD 07:03 → HYPER 15:30 | DX: I51.7 Cardiomegaly (principal) ==

== ENCOUNTER → 2018-04-27 | Outpatient (CLI) | payer OTHER | LOC: HYPER 07:02 | DX: E11.622 Type 2 diabetes mellitus with other skin ulcer (principal); L97.812 Non-pressure chronic ulcer of other part of right lower leg with fat layer exposed; L97.321 Non-pressure chronic ulcer of left ankle limited to breakdown of skin; L88 Pyoderma gangrenosum; I10 Essential (primary) hypertension; L84 Corns and callosities; E78.5 Hyperlipidemia, unspecified; M19.90 Unspecified osteoarthritis, unspecified site; Z85.820 Personal history of malignant melanoma of skin; Z79.84 Long term (current) use of oral hypoglycemic drugs; Z68.41 Body mass index [BMI] 40.0-44.9, adult; Z98.49 Cataract extraction status, unspecified eye ==

== ENCOUNTER → 2018-05-04 | Outpatient (CLI) | payer OTHER | LOC: HYPER 06:49 | DX: E11.622 Type 2 diabetes mellitus with other skin ulcer (principal); L97.321 Non-pressure chronic ulcer of left ankle limited to breakdown of skin; L97.812 Non-pressure chronic ulcer of other part of right lower leg with fat layer exposed; R11.2 Nausea with vomiting, unspecified; L88 Pyoderma gangrenosum; E78.5 Hyperlipidemia, unspecified; I10 Essential (primary) hypertension; M19.90 Unspecified osteoarthritis, unspecified site; Z79.84 Long term (current) use of oral hypoglycemic drugs ==

== ENCOUNTER → 2018-05-11 | Outpatient (CLI) | payer OTHER | LOC: HYPER 07:07 | DX: E11.622 Type 2 diabetes mellitus with other skin ulcer (principal); L97.321 Non-pressure chronic ulcer of left ankle limited to breakdown of skin; L97.212 Non-pressure chronic ulcer of right calf with fat layer exposed; L88 Pyoderma gangrenosum; R11.2 Nausea with vomiting, unspecified; E78.5 Hyperlipidemia, unspecified; I10 Essential (primary) hypertension; M19.90 Unspecified osteoarthritis, unspecified site; Z79.84 Long term (current) use of oral hypoglycemic drugs ==

== ENCOUNTER → 2018-05-18 | Outpatient (CLI) | payer OTHER | LOC: HYPER 07:12 | DX: E11.622 Type 2 diabetes mellitus with other skin ulcer (principal); L97.812 Non-pressure chronic ulcer of other part of right lower leg with fat layer exposed; L97.322 Non-pressure chronic ulcer of left ankle with fat layer exposed; L88 Pyoderma gangrenosum; E78.5 Hyperlipidemia, unspecified; I10 Essential (primary) hypertension; M19.90 Unspecified osteoarthritis, unspecified site; Z79.84 Long term (current) use of oral hypoglycemic drugs; Z85.828 Personal history of other malignant neoplasm of skin; Z98.49 Cataract extraction status, unspecified eye ==

== ENCOUNTER → 2018-05-25 | Outpatient (CLI) | payer OTHER | LOC: HYPER 06:53 | DX: E11.622 Type 2 diabetes mellitus with other skin ulcer (principal); L97.812 Non-pressure chronic ulcer of other part of right lower leg with fat layer exposed; L97.322 Non-pressure chronic ulcer of left ankle with fat layer exposed; L88 Pyoderma gangrenosum; I10 Essential (primary) hypertension; L84 Corns and callosities; E78.5 Hyperlipidemia, unspecified; M19.90 Unspecified osteoarthritis, unspecified site; Z85.89 Personal history of malignant neoplasm of other organs and systems; Z79.84 Long term (current) use of oral hypoglycemic drugs; Z68.41 Body mass index [BMI] 40.0-44.9, adult; Z98.49 Cataract extraction status, unspecified eye ==

== ENCOUNTER → 2018-06-01 | Outpatient (CLI) | payer OTHER | LOC: HYPER 06:33 | DX: E11.622 Type 2 diabetes mellitus with other skin ulcer (principal); L97.812 Non-pressure chronic ulcer of other part of right lower leg with fat layer exposed; L97.322 Non-pressure chronic ulcer of left ankle with fat layer exposed; L88 Pyoderma gangrenosum; R21 Rash and other nonspecific skin eruption; I10 Essential (primary) hypertension; E78.5 Hyperlipidemia, unspecified; L84 Corns and callosities; M19.90 Unspecified osteoarthritis, unspecified site; Z85.89 Personal history of malignant neoplasm of other organs and systems; Z68.41 Body mass index [BMI] 40.0-44.9, adult; Z98.49 Cataract extraction status, unspecified eye; Z79.84 Long term (current) use of oral hypoglycemic drugs ==

== ENCOUNTER → 2018-06-15 | Outpatient (CLI) | payer OTHER | LOC: HYPER 07:01 | DX: E11.622 Type 2 diabetes mellitus with other skin ulcer (principal); L97.812 Non-pressure chronic ulcer of other part of right lower leg with fat layer exposed; L97.322 Non-pressure chronic ulcer of left ankle with fat layer exposed; L88 Pyoderma gangrenosum; L84 Corns and callosities; I10 Essential (primary) hypertension; E78.5 Hyperlipidemia, unspecified; M19.90 Unspecified osteoarthritis, unspecified site; Z79.84 Long term (current) use of oral hypoglycemic drugs; Z85.828 Personal history of other malignant neoplasm of skin; Z98.49 Cataract extraction status, unspecified eye ==

== ENCOUNTER → 2018-06-22 | Outpatient (CLI) | payer OTHER | LOC: HYPER 07:13 | DX: E11.622 Type 2 diabetes mellitus with other skin ulcer (principal); L97.324 Non-pressure chronic ulcer of left ankle with necrosis of bone; L97.812 Non-pressure chronic ulcer of other part of right lower leg with fat layer exposed; E11.52 Type 2 diabetes mellitus with diabetic peripheral angiopathy with gangrene; L88 Pyoderma gangrenosum; L84 Corns and callosities; I10 Essential (primary) hypertension; E78.5 Hyperlipidemia, unspecified; M19.90 Unspecified osteoarthritis, unspecified site; Z85.89 Personal history of malignant neoplasm of other organs and systems; Z79.84 Long term (current) use of oral hypoglycemic drugs ==

== ENCOUNTER → 2018-06-29 | Outpatient (CLI) | payer OTHER | LOC: HYPER 07:00 | DX: E11.622 Type 2 diabetes mellitus with other skin ulcer (principal); L97.322 Non-pressure chronic ulcer of left ankle with fat layer exposed; L97.812 Non-pressure chronic ulcer of other part of right lower leg with fat layer exposed; L88 Pyoderma gangrenosum; L84 Corns and callosities; E78.5 Hyperlipidemia, unspecified; M19.90 Unspecified osteoarthritis, unspecified site; Z85.828 Personal history of other malignant neoplasm of skin; Z79.84 Long term (current) use of oral hypoglycemic drugs ==

== ENCOUNTER → 2018-07-27 | Outpatient (CLI) | payer OTHER | LOC: HYPER 07:02 | DX: E11.622 Type 2 diabetes mellitus with other skin ulcer (principal); L97.322 Non-pressure chronic ulcer of left ankle with fat layer exposed; L97.812 Non-pressure chronic ulcer of other part of right lower leg with fat layer exposed; L88 Pyoderma gangrenosum; L84 Corns and callosities; E78.5 Hyperlipidemia, unspecified; I10 Essential (primary) hypertension; M19.90 Unspecified osteoarthritis, unspecified site; Z85.828 Personal history of other malignant neoplasm of skin; Z79.84 Long term (current) use of oral hypoglycemic drugs ==

== ENCOUNTER → 2018-08-03 | Outpatient (CLI) | payer OTHER | LOC: RAD 11:03 | DX: S52.515A Nondisplaced fracture of left radial styloid process, initial encounter for closed fracture (principal); I51.7 Cardiomegaly; M19.031 Primary osteoarthritis, right wrist; J84.10 Pulmonary fibrosis, unspecified; E78.5 Hyperlipidemia, unspecified; G47.30 Sleep apnea, unspecified; E03.9 Hypothyroidism, unspecified; E11.9 Type 2 diabetes mellitus without complications; W19.XXXA Unspecified fall, initial encounter; Y93.89 Activity, other specified; Y92.89 Other specified places as the place of occurrence of the external cause; Y99.8 Other external cause status; Z79.4 Long term (current) use of insulin ==

== ENCOUNTER → 2018-08-10 | Outpatient (CLI) | payer OTHER | LOC: HYPER 06:56 | DX: E11.622 Type 2 diabetes mellitus with other skin ulcer (principal); L97.812 Non-pressure chronic ulcer of other part of right lower leg with fat layer exposed; I10 Essential (primary) hypertension; L88 Pyoderma gangrenosum; L84 Corns and callosities; E78.5 Hyperlipidemia, unspecified; M19.90 Unspecified osteoarthritis, unspecified site; Z79.84 Long term (current) use of oral hypoglycemic drugs; Z85.828 Personal history of other malignant neoplasm of skin ==

== ENCOUNTER → 2018-08-17 | Outpatient (CLI) | payer OTHER | LOC: HYPER 07:02 | DX: E11.622 Type 2 diabetes mellitus with other skin ulcer (principal); L97.812 Non-pressure chronic ulcer of other part of right lower leg with fat layer exposed; E11.52 Type 2 diabetes mellitus with diabetic peripheral angiopathy with gangrene; L88 Pyoderma gangrenosum; L84 Corns and callosities; E78.5 Hyperlipidemia, unspecified; I10 Essential (primary) hypertension; K21.9 Gastro-esophageal reflux disease without esophagitis; M19.90 Unspecified osteoarthritis, unspecified site; Z79.84 Long term (current) use of oral hypoglycemic drugs; Z85.89 Personal history of malignant neoplasm of other organs and systems ==

== ENCOUNTER → 2018-08-24 | Outpatient (CLI) | payer OTHER | LOC: HYPER 06:28 | DX: E11.622 Type 2 diabetes mellitus with other skin ulcer (principal); L97.812 Non-pressure chronic ulcer of other part of right lower leg with fat layer exposed; L88 Pyoderma gangrenosum; E78.5 Hyperlipidemia, unspecified; I10 Essential (primary) hypertension; R21 Rash and other nonspecific skin eruption; L84 Corns and callosities; M19.90 Unspecified osteoarthritis, unspecified site; Z85.828 Personal history of other malignant neoplasm of skin; Z79.84 Long term (current) use of oral hypoglycemic drugs ==

== ENCOUNTER → 2018-08-31 | Outpatient (CLI) | payer OTHER | LOC: HYPER 07:05 | DX: T86.828 Other complications of skin graft (allograft) (autograft) (principal); E11.622 Type 2 diabetes mellitus with other skin ulcer; L97.812 Non-pressure chronic ulcer of other part of right lower leg with fat layer exposed; L88 Pyoderma gangrenosum; L84 Corns and callosities; E11.52 Type 2 diabetes mellitus with diabetic peripheral angiopathy with gangrene; E78.5 Hyperlipidemia, unspecified; I10 Essential (primary) hypertension; K21.9 Gastro-esophageal reflux disease without esophagitis; M19.90 Unspecified osteoarthritis, unspecified site; Z85.89 Personal history of malignant neoplasm of other organs and systems; Z79.84 Long term (current) use of oral hypoglycemic drugs; Y83.2 Surgical operation with anastomosis, bypass or graft as the cause of abnormal reaction of the patient, or of later complication, without mention of misadventure at the time of the procedure ==

== ENCOUNTER → 2018-09-06 | Outpatient (CLI) | payer OTHER | LOC: HYPER 06:47 | DX: E11.622 Type 2 diabetes mellitus with other skin ulcer (principal); L97.812 Non-pressure chronic ulcer of other part of right lower leg with fat layer exposed; E11.52 Type 2 diabetes mellitus with diabetic peripheral angiopathy with gangrene; L88 Pyoderma gangrenosum; L84 Corns and callosities; E78.5 Hyperlipidemia, unspecified; I10 Essential (primary) hypertension; K21.9 Gastro-esophageal reflux disease without esophagitis; M19.90 Unspecified osteoarthritis, unspecified site; Z79.84 Long term (current) use of oral hypoglycemic drugs ==

== ENCOUNTER → 2018-09-14 | Outpatient (CLI) | payer OTHER | LOC: HYPER 07:03 | DX: E11.622 Type 2 diabetes mellitus with other skin ulcer (principal); L97.812 Non-pressure chronic ulcer of other part of right lower leg with fat layer exposed; S81.802A Unspecified open wound, left lower leg, initial encounter; L88 Pyoderma gangrenosum; E78.5 Hyperlipidemia, unspecified; I10 Essential (primary) hypertension; M19.90 Unspecified osteoarthritis, unspecified site; Z79.84 Long term (current) use of oral hypoglycemic drugs; Z85.89 Personal history of malignant neoplasm of other organs and systems; X58.XXXA Exposure to other specified factors, initial encounter; Y93.89 Activity, other specified; Y92.89 Other specified places as the place of occurrence of the external cause; Y99.8 Other external cause status ==

== ENCOUNTER → 2018-09-21 | Outpatient (CLI) | payer OTHER | LOC: HYPER 07:08 | DX: E11.622 Type 2 diabetes mellitus with other skin ulcer (principal); L97.812 Non-pressure chronic ulcer of other part of right lower leg with fat layer exposed; S91.301A Unspecified open wound, right foot, initial encounter; L88 Pyoderma gangrenosum; L84 Corns and callosities; E78.5 Hyperlipidemia, unspecified; I10 Essential (primary) hypertension; K21.9 Gastro-esophageal reflux disease without esophagitis; M19.90 Unspecified osteoarthritis, unspecified site; Z85.89 Personal history of malignant neoplasm of other organs and systems; Z79.84 Long term (current) use of oral hypoglycemic drugs; X58.XXXA Exposure to other specified factors, initial encounter; Y93.89 Activity, other specified; Y92.89 Other specified places as the place of occurrence of the external cause; Y99.8 Other external cause status ==

== ENCOUNTER → 2018-09-25 | Outpatient (CLI) | payer OTHER | LOC: HYPER 07:11 | DX: E11.622 Type 2 diabetes mellitus with other skin ulcer (principal); L97.812 Non-pressure chronic ulcer of other part of right lower leg with fat layer exposed; S91.301A Unspecified open wound, right foot, initial encounter; L88 Pyoderma gangrenosum; L84 Corns and callosities; E78.5 Hyperlipidemia, unspecified; I10 Essential (primary) hypertension; K21.9 Gastro-esophageal reflux disease without esophagitis; M19.90 Unspecified osteoarthritis, unspecified site; Z79.84 Long term (current) use of oral hypoglycemic drugs; X58.XXXA Exposure to other specified factors, initial encounter; Y93.89 Activity, other specified; Y92.89 Other specified places as the place of occurrence of the external cause; Y99.8 Other external cause status ==

== ENCOUNTER → 2018-10-05 | Outpatient (CLI) | payer OTHER | LOC: HYPER 07:07 | DX: E11.622 Type 2 diabetes mellitus with other skin ulcer (principal); L97.812 Non-pressure chronic ulcer of other part of right lower leg with fat layer exposed; L88 Pyoderma gangrenosum; L84 Corns and callosities; E78.5 Hyperlipidemia, unspecified; I10 Essential (primary) hypertension; M19.90 Unspecified osteoarthritis, unspecified site; Z85.89 Personal history of malignant neoplasm of other organs and systems; Z79.84 Long term (current) use of oral hypoglycemic drugs ==

== ENCOUNTER → 2018-10-12 | Outpatient (CLI) | payer OTHER | LOC: HYPER 07:09 | DX: E11.622 Type 2 diabetes mellitus with other skin ulcer (principal); L97.812 Non-pressure chronic ulcer of other part of right lower leg with fat layer exposed; L84 Corns and callosities; E11.52 Type 2 diabetes mellitus with diabetic peripheral angiopathy with gangrene; L88 Pyoderma gangrenosum; E78.5 Hyperlipidemia, unspecified; I10 Essential (primary) hypertension; K21.9 Gastro-esophageal reflux disease without esophagitis; M19.90 Unspecified osteoarthritis, unspecified site; Z85.89 Personal history of malignant neoplasm of other organs and systems; Z79.84 Long term (current) use of oral hypoglycemic drugs ==

== ENCOUNTER → 2018-10-19 | Outpatient (CLI) | payer OTHER | LOC: NUC 10:55 | DX: M81.0 Age-related osteoporosis without current pathological fracture (principal); M85.89 Other specified disorders of bone density and structure, multiple sites; Z78.0 Asymptomatic menopausal state ==

== ENCOUNTER → 2018-10-19 | Outpatient (CLI) | payer OTHER | LOC: HYPER 07:17 | DX: E11.622 Type 2 diabetes mellitus with other skin ulcer (principal); L97.812 Non-pressure chronic ulcer of other part of right lower leg with fat layer exposed; L88 Pyoderma gangrenosum; L84 Corns and callosities; I10 Essential (primary) hypertension; E78.5 Hyperlipidemia, unspecified; M19.90 Unspecified osteoarthritis, unspecified site; Z85.828 Personal history of other malignant neoplasm of skin; Z79.84 Long term (current) use of oral hypoglycemic drugs ==

== ENCOUNTER → 2018-10-26 | Outpatient (CLI) | payer OTHER | LOC: HYPER 07:02 | DX: E11.622 Type 2 diabetes mellitus with other skin ulcer (principal); L97.812 Non-pressure chronic ulcer of other part of right lower leg with fat layer exposed; E11.52 Type 2 diabetes mellitus with diabetic peripheral angiopathy with gangrene; L88 Pyoderma gangrenosum; L84 Corns and callosities; E66.9 Obesity, unspecified; E78.5 Hyperlipidemia, unspecified; I10 Essential (primary) hypertension; K21.9 Gastro-esophageal reflux disease without esophagitis; M19.90 Unspecified osteoarthritis, unspecified site; Z85.89 Personal history of malignant neoplasm of other organs and systems; Z68.41 Body mass index [BMI] 40.0-44.9, adult; Z79.84 Long term (current) use of oral hypoglycemic drugs ==

== ENCOUNTER → 2018-11-02 | Outpatient (CLI) | payer OTHER | LOC: HYPER 06:54 | DX: E11.622 Type 2 diabetes mellitus with other skin ulcer (principal); L97.812 Non-pressure chronic ulcer of other part of right lower leg with fat layer exposed; L84 Corns and callosities; E11.52 Type 2 diabetes mellitus with diabetic peripheral angiopathy with gangrene; L88 Pyoderma gangrenosum; E66.9 Obesity, unspecified; E78.5 Hyperlipidemia, unspecified; I10 Essential (primary) hypertension; K21.9 Gastro-esophageal reflux disease without esophagitis; M19.90 Unspecified osteoarthritis, unspecified site; Z85.89 Personal history of malignant neoplasm of other organs and systems; Z68.41 Body mass index [BMI] 40.0-44.9, adult; Z79.84 Long term (current) use of oral hypoglycemic drugs ==

== ENCOUNTER → 2018-11-09 | Outpatient (CLI) | payer OTHER | LOC: HYPER 05:31 | DX: E11.622 Type 2 diabetes mellitus with other skin ulcer (principal); L97.812 Non-pressure chronic ulcer of other part of right lower leg with fat layer exposed; E11.52 Type 2 diabetes mellitus with diabetic peripheral angiopathy with gangrene; L88 Pyoderma gangrenosum; L84 Corns and callosities; E78.5 Hyperlipidemia, unspecified; I10 Essential (primary) hypertension; K21.9 Gastro-esophageal reflux disease without esophagitis; M19.90 Unspecified osteoarthritis, unspecified site; Z85.89 Personal history of malignant neoplasm of other organs and systems; Z79.84 Long term (current) use of oral hypoglycemic drugs ==

== ENCOUNTER → 2018-11-16 | Outpatient (CLI) | payer OTHER | LOC: HYPER 06:44 | DX: E11.622 Type 2 diabetes mellitus with other skin ulcer (principal); L97.812 Non-pressure chronic ulcer of other part of right lower leg with fat layer exposed; L97.411 Non-pressure chronic ulcer of right heel and midfoot limited to breakdown of skin; L89.612 Pressure ulcer of right heel, stage 2; L88 Pyoderma gangrenosum; I10 Essential (primary) hypertension; E78.5 Hyperlipidemia, unspecified; M19.90 Unspecified osteoarthritis, unspecified site; Z79.84 Long term (current) use of oral hypoglycemic drugs ==

== ENCOUNTER → 2018-11-30 | Outpatient (CLI) | payer OTHER | LOC: HYPER 06:58 | DX: E11.622 Type 2 diabetes mellitus with other skin ulcer (principal); L97.812 Non-pressure chronic ulcer of other part of right lower leg with fat layer exposed; E11.621 Type 2 diabetes mellitus with foot ulcer; L89.612 Pressure ulcer of right heel, stage 2; L97.411 Non-pressure chronic ulcer of right heel and midfoot limited to breakdown of skin; L84 Corns and callosities; L86 Keratoderma in diseases classified elsewhere; L88 Pyoderma gangrenosum; E11.52 Type 2 diabetes mellitus with diabetic peripheral angiopathy with gangrene; E78.5 Hyperlipidemia, unspecified; I10 Essential (primary) hypertension; M19.90 Unspecified osteoarthritis, unspecified site; K21.9 Gastro-esophageal reflux disease without esophagitis; Z85.89 Personal history of malignant neoplasm of other organs and systems; Z79.84 Long term (current) use of oral hypoglycemic drugs ==

== ENCOUNTER → 2018-12-07 | Outpatient (CLI) | payer OTHER | LOC: HYPER 11-23 13:18 | DX: E11.622 Type 2 diabetes mellitus with other skin ulcer (principal); L97.822 Non-pressure chronic ulcer of other part of left lower leg with fat layer exposed; L97.812 Non-pressure chronic ulcer of other part of right lower leg with fat layer exposed; E11.621 Type 2 diabetes mellitus with foot ulcer; L89.612 Pressure ulcer of right heel, stage 2; L97.411 Non-pressure chronic ulcer of right heel and midfoot limited to breakdown of skin; L86 Keratoderma in diseases classified elsewhere; L88 Pyoderma gangrenosum; L84 Corns and callosities; R21 Rash and other nonspecific skin eruption; E78.5 Hyperlipidemia, unspecified; I10 Essential (primary) hypertension; K21.9 Gastro-esophageal reflux disease without esophagitis; M19.90 Unspecified osteoarthritis, unspecified site; Z85.89 Personal history of malignant neoplasm of other organs and systems; Z79.84 Long term (current) use of oral hypoglycemic drugs ==

== ENCOUNTER → 2018-12-21 | Outpatient (CLI) | payer OTHER | LOC: HYPER 06:58 | DX: E11.622 Type 2 diabetes mellitus with other skin ulcer (principal); L97.812 Non-pressure chronic ulcer of other part of right lower leg with fat layer exposed; L97.822 Non-pressure chronic ulcer of other part of left lower leg with fat layer exposed; L88 Pyoderma gangrenosum; L86 Keratoderma in diseases classified elsewhere; L84 Corns and callosities; E78.5 Hyperlipidemia, unspecified; I10 Essential (primary) hypertension; K21.9 Gastro-esophageal reflux disease without esophagitis; M19.90 Unspecified osteoarthritis, unspecified site; Z85.89 Personal history of malignant neoplasm of other organs and systems; Z79.84 Long term (current) use of oral hypoglycemic drugs ==

== ENCOUNTER → 2018-12-28 | Outpatient (CLI) | payer OTHER | LOC: HYPER 07:00 | DX: E11.622 Type 2 diabetes mellitus with other skin ulcer (principal); L97.812 Non-pressure chronic ulcer of other part of right lower leg with fat layer exposed; L97.822 Non-pressure chronic ulcer of other part of left lower leg with fat layer exposed; L88 Pyoderma gangrenosum; L86 Keratoderma in diseases classified elsewhere; E78.5 Hyperlipidemia, unspecified; I10 Essential (primary) hypertension; M19.90 Unspecified osteoarthritis, unspecified site; Z79.84 Long term (current) use of oral hypoglycemic drugs; Z85.89 Personal history of malignant neoplasm of other organs and systems ==

== ENCOUNTER → 2019-01-04 | Outpatient (CLI) | payer OTHER | LOC: HYPER 06:55 | DX: E11.622 Type 2 diabetes mellitus with other skin ulcer (principal); L97.812 Non-pressure chronic ulcer of other part of right lower leg with fat layer exposed; L97.822 Non-pressure chronic ulcer of other part of left lower leg with fat layer exposed; L88 Pyoderma gangrenosum; L86 Keratoderma in diseases classified elsewhere; L84 Corns and callosities; E78.5 Hyperlipidemia, unspecified; I10 Essential (primary) hypertension; K21.9 Gastro-esophageal reflux disease without esophagitis; M19.90 Unspecified osteoarthritis, unspecified site; Z85.89 Personal history of malignant neoplasm of other organs and systems; Z79.84 Long term (current) use of oral hypoglycemic drugs ==

== ENCOUNTER → 2019-01-11 | Outpatient (CLI) | payer OTHER | LOC: HYPER 07:05 | DX: E11.622 Type 2 diabetes mellitus with other skin ulcer (principal); L97.812 Non-pressure chronic ulcer of other part of right lower leg with fat layer exposed; L97.822 Non-pressure chronic ulcer of other part of left lower leg with fat layer exposed; S91.302A Unspecified open wound, left foot, initial encounter; S91.301A Unspecified open wound, right foot, initial encounter; L84 Corns and callosities; L86 Keratoderma in diseases classified elsewhere; L88 Pyoderma gangrenosum; E78.5 Hyperlipidemia, unspecified; I10 Essential (primary) hypertension; K21.9 Gastro-esophageal reflux disease without esophagitis; M19.90 Unspecified osteoarthritis, unspecified site; Z85.89 Personal history of malignant neoplasm of other organs and systems; Z79.84 Long term (current) use of oral hypoglycemic drugs; X58.XXXA Exposure to other specified factors, initial encounter; Y93.89 Activity, other specified; Y92.89 Other specified places as the place of occurrence of the external cause; Y99.8 Other external cause status ==

== ENCOUNTER → 2019-01-18 | Outpatient (CLI) | payer OTHER | LOC: HYPER 06:59 | DX: L97.812 Non-pressure chronic ulcer of other part of right lower leg with fat layer exposed (principal); L97.822 Non-pressure chronic ulcer of other part of left lower leg with fat layer exposed; L88 Pyoderma gangrenosum; I10 Essential (primary) hypertension; L86 Keratoderma in diseases classified elsewhere; L84 Corns and callosities; E78.5 Hyperlipidemia, unspecified; M19.90 Unspecified osteoarthritis, unspecified site; Z79.84 Long term (current) use of oral hypoglycemic drugs; Z85.828 Personal history of other malignant neoplasm of skin ==

== ENCOUNTER → 2019-01-25 | Outpatient (CLI) | payer OTHER | LOC: HYPER 06:59 | DX: E11.622 Type 2 diabetes mellitus with other skin ulcer (principal); L97.812 Non-pressure chronic ulcer of other part of right lower leg with fat layer exposed; L97.822 Non-pressure chronic ulcer of other part of left lower leg with fat layer exposed; L88 Pyoderma gangrenosum; L86 Keratoderma in diseases classified elsewhere; E78.5 Hyperlipidemia, unspecified; I10 Essential (primary) hypertension; K21.9 Gastro-esophageal reflux disease without esophagitis; M19.90 Unspecified osteoarthritis, unspecified site; Z85.89 Personal history of malignant neoplasm of other organs and systems; Z79.84 Long term (current) use of oral hypoglycemic drugs ==

== ENCOUNTER → 2019-02-01 | Outpatient (CLI) | payer OTHER | LOC: HYPER 06:54 | DX: E11.622 Type 2 diabetes mellitus with other skin ulcer (principal); L97.812 Non-pressure chronic ulcer of other part of right lower leg with fat layer exposed; L97.822 Non-pressure chronic ulcer of other part of left lower leg with fat layer exposed; L88 Pyoderma gangrenosum; L86 Keratoderma in diseases classified elsewhere; E78.5 Hyperlipidemia, unspecified; I10 Essential (primary) hypertension; K21.9 Gastro-esophageal reflux disease without esophagitis; M19.90 Unspecified osteoarthritis, unspecified site; Z85.89 Personal history of malignant neoplasm of other organs and systems; Z79.84 Long term (current) use of oral hypoglycemic drugs ==

== ENCOUNTER → 2019-02-08 | Outpatient (CLI) | payer OTHER ==
[~2019-02-08] MED LIST changes: +DURAGESIC1 EAC4 TD; +DURAGESIC1 EACH TD; +LANTUS100 UNIT/M SUBQ; +NORTRIPTYLINE H10 M1 GT; +NORVASC5 MG PO; +PERCOCET PO
== END ==
LOC: HYPER 07:05
DX: E11.622 Type 2 diabetes mellitus with other skin ulcer (principal); L97.812 Non-pressure chronic ulcer of other part of right lower leg with fat layer exposed; L97.322 Non-pressure chronic ulcer of left ankle with fat layer exposed; L86 Keratoderma in diseases classified elsewhere; L88 Pyoderma gangrenosum; L84 Corns and callosities; E78.5 Hyperlipidemia, unspecified; M19.90 Unspecified osteoarthritis, unspecified site; Z85.828 Personal history of other malignant neoplasm of skin; Z79.84 Long term (current) use of oral hypoglycemic drugs

== ENCOUNTER → 2019-02-09 | Outpatient (CLI) | payer OTHER ==
[~2019-02-09] MED LIST changes: -DURAGESIC1 EAC4 TD; -DURAGESIC1 EACH TD; -NORTRIPTYLINE H10 M1 GT; -NORVASC5 MG PO; -PERCOCET PO
[2019-02-09 13:50] VITALS: BP 136/60
--- NOTE | 2019-02-09 15:17 | NUR ---
IV NURSE HERE TO INSERT PICC LINE CATHETER. 1ST DOSE ERTAPENEM GIVE VIA PICC LINE WITH NO APPARENT ADVERSE REACTIONS. PT DISCHARGE IN CARE OF HER SON/CAREGIVER.
--- NOTE | 2019-02-09 15:18 | NUR ---
CONSULTED TO PLACE A PICC FOR A PATIENT NEEDING OUTPATIENT IV ANTIBIOTICS. ORDER AND CONSENT NOTED. THE PROCEDURE WELL BENIFITS AND RISKS DISCUSSED WITH THE PATIENT AND SHE VERBALIZED UNDERSTANDING. THE RIGHT UPPER ARM BRACHIAL WAS WIDLEY PATENT. A #4F SINGLE LUMEN POWER PICC WAS ATTEMPTED. UNABLE TO PASS THE LINE INTO THE SVC. THE LINE WAS TRIMMED A MIDLINE AND SECURED. CONFIRMED THE IV MED WAS A NON VESICANT MEDICATION. THE OP NURSE WAS UPDATED AND THE LINE WAS 25CM. RELELEASED FOR USE
--- NOTE | 2019-02-13 08:57 | HC ---
[facility] [place] [address] CONSULTATION Name: CARLINE CURRY Room #: [facility] Kathi.#: [id number] Admission: 02/09/19 ������������������ Attend Phys: Miko Mitchell Discharge: ������������������ Date of : 42 Report #: [id number] THIS REPORT FOR: //name// CC: Miko Santos Eliseo Frank DATE OF SERVICE: 02/09/2019 INFECTIOUS DISEASE CONSULTATION HISTORY OF PRESENT ILLNESS: A 78-year-old white woman with history of pyoderma gangrenosum that failed topical steroids, systemic steroids and subsequently developed acute kidney injury to cyclosporine, which will be added to her list of adverse reactions side effects. The patient developed increasing redness and some pain on the legs. I was contacted by Dr. Deleon yesterday, requiring treatment with parenteral antibiotics. The patient refused admission and returns today to have IV antibiotics started, which she had done at home before. DRUG ALLERGIES: SULFA DRUGS AND CYCLOSPORINE. MEDICATIONS: Currently, she is on treatment at home with levothyroxine 75 mcg daily, pantoprazole 20 mg daily, furosemide 40 mg daily, KCl 10 mEq daily, glimepiride 2 mg daily, ropinirole 0.5 mg daily at bedtime, magnesium oxide 400 mg daily, lisinopril 5 mg daily and probiotics daily. She is also on multivitamins, vitamin C, ropinirole and amlodipine 5 mg daily. At the nighttime, she takes ropinirole 0.5 mg daily and aspirin and nortriptyline for restless legs and depression. PAST MEDICAL HISTORY: Chronic pyoderma gangrenosum, stasis dermatitis, legs. Chronic kidney disease, definitely made worse by cyclosporine. Diabetes mellitus. Hypertension. Right total hip replacement. Left ankle fracture. Obesity. History of chronic stasis dermatitis ulcerations, possible pyoderma gangrenosum. PHYSICAL EXAMINATION: GENERAL: A well-developed, overweight woman, not toxic looking. VITAL SIGNS: Stable. LUNGS: Clear. HEART: S1, S2. No gallop or murmur. ABDOMEN: Soft. No masses or megaly. EXTREMITIES: Reveal significant redness, both lower extremities, with increased temperature and superficial ulcerations over the lateral aspect of the distal right leg and the lateral aspect of the left leg; ulcerations better compared to the year 2018. LABORATORY DATA: On 01/22/2019, potassium 5.2, CO2 of 36, BUN 24, creatinine [address] [address] CONSULTATION Name: CARLINE CURRY Room #: ILYA LYONS Sohail#: [id number] Admission: 02/09/19 ������������������ Attend Phys: Miko Mitchell Discharge: ������������������ Date of : 42 Report #: [id number] 1.3 and glucose 146. Dyslipidemia noted. Hemoglobin 7.9, WBC 10.5 and platelets 220,000. Cultures obtained of the right leg on 02/01/2019 reveal 4+ Proteus mirabilis, 4+ Staphylococcus aureus. The Staphylococcus aureus is oxacillin sensitive. The Proteus mirabilis is sensitive to meropenem, resistant to Levaquin and sensitive to cephalosporins. ASSESSMENT: 1. Cellulitis, lower extremities, possibly polymicrobic. 2. Stasis dermatitis, legs. 3. Ulcerations legs, possibly secondary to pyoderma gangrenosum. 4. Diabetes mellitus. 5. Hypothyroidism. 6. Anemia of chronic disease. 7. SULFA DRUG AND CYCLOSPORINE ALLERGY. SUGGESTIONS: Recommend parenteral antibiotics through a PICC line. We will have case monitor clear the patient for home IV antibiotics. This might be the first obstacle we need to take care of. After this is clear, the patient may proceed with PICC line. I also like to see a CBC with differential, ESR, CRP and CMP. The antibiotic to be used at home, ertapenem 1 gram IV daily for 7 days, she had done this before. I would like to see the patient when she visits with Dr. Aleksandar Deleon next . Dr. Aleksandar Deleon, thank you for requesting my suggestions. ��������������������������������������������� <ELECTRONICALLY SIGNED> ���������������������������������������� By: Miko Santos MD ��������������������������������������������� 02/13/19 0857 [id number] Miko Santos MD /nt
== END ==
LOC: OPONC 10:03 → HYPER 10:03
DX: L88 Pyoderma gangrenosum (principal); E11.622 Type 2 diabetes mellitus with other skin ulcer; L97.812 Non-pressure chronic ulcer of other part of right lower leg with fat layer exposed; L97.822 Non-pressure chronic ulcer of other part of left lower leg with fat layer exposed; E11.52 Type 2 diabetes mellitus with diabetic peripheral angiopathy with gangrene; E11.22 Type 2 diabetes mellitus with diabetic chronic kidney disease; I12.9 Hypertensive chronic kidney disease with stage 1 through stage 4 chronic kidney disease, or unspecified chronic kidney disease; N18.9 Chronic kidney disease, unspecified; D63.1 Anemia in chronic kidney disease; L03.116 Cellulitis of left lower limb; L03.115 Cellulitis of right lower limb; I87.2 Venous insufficiency (chronic) (peripheral); E03.9 Hypothyroidism, unspecified
CPT/HCPCS: 27000; 95000

== ENCOUNTER 2019-02-15 10:07 | Inpatient (IN) | payer OTHER ==
[~2019-02-15] VITALS: Ht 157.5 cm; Wt 106.1 kg
[2019-02-15 13:01] VITALS: BP 148/70
[2019-02-15] MEDS ORDERED: PERCOCET PO (13:29)
[2019-02-15] MEDS ORDERED: DURAGESIC1 EAC4 TD (13:29)
[2019-02-15] MEDS ORDERED: DURAGESIC1 EACH TD (13:30)
[2019-02-15] MEDS ORDERED: NORVASC5 MG PO (13:31)
[2019-02-15] MEDS ORDERED: NORTRIPTYLINE H10 M1 GT (13:32)
--- NOTE | 2019-02-15 19:24 | NUR ---
PATIENT ADMITTED TO UNIT AT
--- NOTE | 2019-02-15 19:25 | NUR ---
ARRIVED TO FLOOR DIRECT ADMIT AT 1230. ADMISSION HISTORY AND ASSESSMENT COMPLETED. PATIENT HAS RESTED QUIETLY IN BED THIS AFTERNOON. STARTED VANCOMYCIN X 1 DOSE. WILL CONTINUE WITH MEROPENEM Q8H. PICTURES TAKEN OF WOUNDS TO BILATERAL LE'S. DR. GARCIA VISITED AND RECEIVED WOUND CARE ORDERS. PATIENT'S SON AT BEDSIDE. DR. FERNANDEZS CALLED AND WILL SEE PATIENT TOMORROW.
[2019-02-15 20:45] VITALS: BP 148/57
--- NOTE | 2019-02-16 04:34 | NUR ---
Pt. rested quietly at intervals during the night when checked on during frequent rounds. She c/o bilateral lower extremity pain and po pain meds given (see emar) with some relief noted. Bilateral lower extremities red in color and warm upon touch. Iv antibiotics given as ordered. Bed alarm is on.
[2019-02-16 04:45] VITALS: BP 131/63
[2019-02-16 09:12] VITALS: BP 139/67
[2019-02-16 12:31] LABS: HEMATOCRIT 37.6 % (37.0-47.0); HEMOGLOBIN 12.7 gm/dL (12.0-15.0); MCH 31.8 pg (26.0-34.0); MCHC 33.8 g/dL (28.0-37.0); PLATELET COUNT 228 thou/uL (150-400); RDW 15.2 % (10.5-14.5); WBC 6.8 thou/uL (4.0-11.0)
[2019-02-16 12:45] LABS: ALBUMIN 2.9 g/dL (3.4-5.0); CALCIUM 8.9 mg/dL (8.5-10.1); CREATININE 1.2 mg/dL (0.6-1.0); POTASSIUM 4.5 mmol/L (3.5-5.1); TOTAL BILIRUBIN 0.2 mg/dL (<0.1-1.0); TOTAL PROTEIN 7.5 g/dL (6.4-8.2)
[2019-02-16 13:14] LABS: ATYPICAL LYMPHS 2 %
[2019-02-16 13:16] LABS: ANISOCYTOSIS SLIGHT; POIKILOCYTOSIS SLIGHT
--- NOTE | 2019-02-16 15:24 | NUR ---
PT ADMITTED RELATED TO CELLULITIS BILATERAL LOWER EXTREMITIES. CM REVIEWED CHART AND SPOKE WITH CARE TEAM. CM MET WITH PT AT BEDSIDE THIS DAY. PT IS A&O X4. CM ROLE INTRODUCED. PT INDICATED SHE LIVES IN HOUSE WITH HER SON WITH NO STEPS TO ENTER AND NO STEPS INSIDE. PT INDICATED SHE HAD USED A FWW TO ASSIST WITH MOBILITY PIPE JEEPER. PT INDICATED SHE HAD USED 2L O2 NOC PIPE JEEPER THROUGH [facility] AND SHE HAS A CPAP FOR HOME USE WELL. PT AND SON INDICATED PT HAD BEEN ON SERVICE WITH [facility] IN THE PAST AND THAT SHE WOULD LIKE TO USE THEM AGAIN UPON DC. PT AND SON INDICATED THAT THEY ANTICPATE PT TO DC HOME ONCE MEDICALLY STABLE. CM TO FOLLOW INDICATED WITH DC PLANNING. IT IS ANTIPATED THAT PT WILL LIKELY BE HERE OVER THE WEEKEND.
--- NOTE | 2019-02-16 15:54 | NUR ---
ASSUMED CARE 0700. ABLE TO MAKE NEEDS KNOWN. PAIN MANAGED WITH MEDICATIONS. WOUND CARE COMPLETED BY WOUND CARE WITH PLANS TO CHANGE WOUND ORDERS. NO DRESSING GERIATRIC CARE MANAGER THE WEEKEND. HOME MEDS UPDATED AND RESTARTED. MRSA CULTURE COMPLETED AND SENT TO LAB. UP WITH ASSIST X1 And walker to bathroom. fall precautions in place. CALL LIGHT IN REACH.
--- NOTE | 2019-02-16 17:31 | NUR ---
WOUND CONSULT: PT. WAS SEEN TODAY BY DR. GARCIA AND MYSELF. PT. IS WELL KNOWN TO THE WOUND CARE TEAM. PT. HAS PYODERMA GANGREOSUM. PT. ALSO HAS CELLULTITIS. RECOMMENDATIONS: WOUND CARE TO LEFT AND RIGHT LEG: GENTLY CLEANSE AREA WITH WOUND CLEANSER OR NORMAL SALINE, APPLY THERAHONEY TO WOUND BED, COVER WITH OPTIFOAM, WRAP WITH KERLIX, SECURE WITH TAPE. COMPLETE CARES M/W/F AND PRN. PT. AND STAFF NURSE WERE INSTRUCTED ON PLAN OF CARE.
[2019-02-16 20:02] VITALS: BP 158/83
[2019-02-17 03:30] VITALS: BP 131/57
--- NOTE | 2019-02-17 04:47 | NUR ---
Pt. rested quietly at intervals during the night when checked on during frequent rounds. She c/o bilateral lower leg pain and was given po pain pills (see emar) with some relief noted. Bed alrm is on.
--- NOTE | 2019-02-17 07:56 | HC ---
[facility] [place] [place] [address] CONSULTATION Name: CARLINE CURRY Room #: 461-P ADM IN M.R.#: [id number] Admission: 02/15/19 ������������������ Attend Phys: Eliseo Frank MD Discharge: ������������������ Date of : 42 Report #: [id number] THIS REPORT FOR: //name// CC: Eliseo Frank DATE OF SERVICE: 02/16/2019 ATTENDING PHYSICIAN: Dr. Eliseo Frank. REASON FOR CONSULTATION: Antibiotic management. HISTORY OF PRESENT ILLNESS: A 78-year-old white woman known to me from previous hospitalization at [facility] [place] [place] and followups at a wound care clinic where I saw the patient last on 02/09/[address] Aleksandar Deleon' request, I started parenteral antibiotic, ertapenem 1 g IV daily. I got in contact with case checker, visiting nurses and advised them that I was going to order laboratory test when I saw the patient on . Apparently, she visited the wound care clinic yesterday. She was advised there was some progression of cellulitic changes on the left leg. She is admitted. Accidentally, I found the patient's name on computer and requested Dr. Frank put a consultation with me today. The patient is having pain on her leg continuously, no better or no worse. She tells me she was admitted because there was some progression of erythematous changes across the ink irwin applied, particularly the left leg, though both legs were marked with ink. She denies having had fevers or chills. DRUG ALLERGIES: SULFA DRUGS AND CYCLOSPORINE. MEDICATIONS: The patient is currently on treatment with fentanyl 25 mcg transdermal every 72 hours, fentanyl 12 mcg transdermal every 72 hours, amlodipine 5 mg p.o. daily, ascorbic acid 500 mg daily, multivitamin with minerals on Mondays, Wednesdays, and Fridays; KCl supplementation, Lactobacillus 1 capsule daily, glimepiride 2 mg with breakfast, pantoprazole 20 mg p.o. daily, levothyroxine 75 mcg p.o. daily, aspirin 81 mg at bedtime, nortriptyline 10 mg at bedtime, insulin glargine 25 units at bedtime subcutaneous, meropenem 1 g IV every 8 hours, ropinirole 0.5 mg b.i.d., p.r.n. glucose and glucagon, p.r.n. oxycodone. The patient is having applications topically of daily moisturizers that contains dimethicone, she applies to both legs. She is also using topical triamcinolone acetonide 0.1% hydrating cream with urea topically. She is also having a prescription for clobetasol propionate cream 0.05% daily. She has some tablets of dapsone 100 mg that are being crushed and applied topically to leg ulcerations. She is also using petrolatum, cellulose, zinc oxide, dimethicone named Triad hydrophilic wound dressing to legs. She is having some special dressings, name Iodoflex containing cadexomer iodine pads to local ulcerations. PAST MEDICAL HISTORY: Diabetes mellitus, Pyoderma gangrenosum stasis dermatitis [address] [address] CONSULTATION Name: CARLINE CURRY Room #: 461-P ADM IN M.R.#: [id number] Admission: 02/15/19 ������������������ Attend Phys: Eliseo Frank MD Discharge: ������������������ Date of : 42 Report #: [id number] of legs, chronic kidney disease made worse by CYCLOSPORINE, hypertension, right total hip replacement, left ankle fracture. DRUG ALLERGIES: SULFA DRUGS AND CYCLOSPORINE. PHYSICAL EXAMINATION: GENERAL: A well-developed, nontoxic-looking woman. VITAL SIGNS: Temperature maximum since admission 98.5, pulse 83, respirations 18, BP 130/60. Height 5 feet 2 inches, weight 234 pounds. HEENMT: Normal. NECK: Normal. BREASTS: Deferred. LUNGS: Clear. HEART: S1, S2. No gallop. ABDOMEN: Soft, no masses or megaly. PELVIC: Deferred. RECTAL: Deferred. EXTREMITIES: Reveal a superficial ulceration on the right leg covered with some special dressings, those are removed. No active signs of infections. She has got erythema of both legs with some advancing satellite type lesions beyond the ink irwin on the proximal leg. These erythematous lesions are redder than before, I have to agree to that. The question is are we dealing with cellulitis or contact dermatitis due to some of the topical medications she is using. ASSESSMENT: 1. Question cellulitis versus contact dermatitis. 2. Pyoderma gangrenosum. 3. Chronic kidney disease. 4. SULFA DRUG and CYCLOSPORINE allergy. 5. Morbid obesity. RECOMMENDATIONS: For time being, let us continue with meropenem, but need to obtain ESR, CRP, CBC with differential as well as CMP. We will obtain MRSA screen since she previously had a single positive MRSA bacteremia that did not require treatment. Dr. Frank, thank you for requesting my suggestions. ��������������������������������������������� <ELECTRONICALLY SIGNED> ���������������������������������������� By: Miko Santos MD ��������������������������������������������� 02/17/19 0756 [id number] Miko Santos MD /nt
[2019-02-17 08:00] VITALS: BP 155/76
--- NOTE | 2019-02-17 15:00 | NUR ---
ASSUMED CARE 0700. VSS, PAIN MANAGED WITH MEDIATIONS. WOUND C/D/I. CULTURES ARE NEG FOR MRSA. FALL PRACUTIONS IN PLACE. 1 ASSIST TO BATHROOM. NO PLANS TO DC THIS WEEKEND
[2019-02-17 16:15] VITALS: BP 133/64
[2019-02-17 19:17] VITALS: BP 126/60
--- NOTE | 2019-02-18 04:00 | NUR ---
PATIENT AOX4 MAKES NEEDS KNOWN. PATIENT NEEDS MINIMUM ASSISTANCE WITH ADL, BED MOBILITY, TRANSFER AND TOILETING. PATIENT HAS BLE WOUNDS, DRESSING C/D/I. FALL PRECAUTION IN PLACE, PATIENT IN BED ASLEEP AT THIS TIME BREATHING REGULAR AND UNLABOURED.
[2019-02-18 04:10] VITALS: BP 142/78
[2019-02-18 08:17] VITALS: BP 142/76
[2019-02-18 09:27] LABS: HEMOGLOBIN 12.2 gm/dL (12.0-15.0); MCH 31.6 pg (26.0-34.0); MCHC 33.1 g/dL (28.0-37.0); MCV 95.6 fL (80.0-100.0); RBC 3.87 mil/uL (4.20-5.00); RDW 15.2 % (10.5-14.5); WBC 6.4 thou/uL (4.0-11.0)
[2019-02-18 09:40] LABS: ALBUMIN 2.8 g/dL (3.4-5.0); CALCIUM 9.3 mg/dL (8.5-10.1); TOTAL BILIRUBIN 0.3 mg/dL (<0.1-1.0); TOTAL PROTEIN 7.4 g/dL (6.4-8.2)
[2019-02-18 14:55] VITALS: BP 148/80
--- NOTE | 2019-02-18 19:34 | NUR ---
Assumed pt care this am, stayed on the chair for most of the day. Would call when she needed to use the toilet. Ambulated with a walker and 1 assists. son at the bed side, changed kelix on both legs , refused for optifoam and thera honey to be changed since would care would change dressing mary. POC followed ,no issues or complaints verbalized by the pt.
[2019-02-19 04:10] VITALS: BP 128/61
--- NOTE | 2019-02-19 05:09 | NUR ---
ASSUMED CARE 1899. VSS. ASSESSMENT CHARTED. PT C/O BLE PAIN PRN PAIN MEDS PER EMAR. DENIES CP, SOA. BIPAP HS FROM HOME. X1 WITH WALKER TO BATHROOM. KERLIX IN PLACE BILAT LE MANJEET CDI. PT STATES SHE WOULD LIKE TO BE DNR, SON IS BRINGING PAPER IN THE AM. PT HOPEFUL TO D/C SOON. WILL CONTINUE TO MONITOR AND WITH POC.
[2019-02-19 08:22] VITALS: BP 139/73
--- NOTE | 2019-02-19 12:53 | NUR ---
WOUND FOLLOW UP: PT. WAS SEEN TODAY BY DR. GARCIA AND MYSELF. PT. WOUNDS ARE CLINICALLY BETTER TODAY THAN ON TUESDAY. PT. AND PT. SON ARE VERY HAPPY WITH THE IMPROVEMENT. RECOMMENDATIONS: CONTINUE WITH CURRENT PLAN OF CARE. PT. AND STAFF NURSE WERE INSTRUCTED ON PLAN OF CARE.
--- NOTE | 2019-02-19 14:15 | NUR ---
I have reviewed the documentation by CALE LAWRENCE from 02/19/19 to 02/19/19 and I concur with it. MARYJO RAO
[2019-02-19 14:41] VITALS: BP 138/61
--- NOTE | 2019-02-19 14:57 | NUR ---
Extreme class obesity with BMI 42.8. Wt is actually down 22 lb from last admit. On carb controlled diet, tolerating and BG in good control. DNR status. Lower extremity cellulitis improving, dc home soon. Low nutrition risk
--- NOTE | 2019-02-19 16:50 | NUR ---
CARE TEAM INDICATED THAT PT IS PROGRESSING WELL TOWARD GOAL OF DISCHARGE HOME. CM TO FOLLOW INDICATED WITH DC PLANNING.
--- NOTE | 2019-02-19 19:46 | NUR ---
Assumed pt care this am, pt is able to ambulate from bed to toilet and around the room with her walker with ease. Wound in the LLE was seen by Dr. Charles and dressing changed by the woundcare team. Diet is well tolerated, all medications were taken as scheduled. POC followed. Pt is progressing towards goals well.
[2019-02-19 20:08] VITALS: BP 148/68
[2019-02-20 04:45] VITALS: BP 142/66
--- NOTE | 2019-02-20 06:00 | NUR ---
Pt. rested quietly during the night when checked on during frequent rounds. She has been given po pain meds (see emar) for c/o pain to bilateral lower legs with some relief noted. Dressings to bilateral lower legs are dry and intact. Bed alarm is on.
[2019-02-20 08:21] VITALS: BP 147/69
[2019-02-20 14:26] VITALS: BP 142/58
--- NOTE | 2019-02-20 14:46 | NUR ---
CARE TEAM INDICATED POSSIBLE DISCHARGE HOME TOMORROW. CM REQUESTED THAT REFERRAL BE SENT TO [facility] INDICATED POSSIBLE DC HOME TOMORROW. CM TO FOLLOW INDICATED WITH DC PLANNING.
--- NOTE | 2019-02-20 14:52 | NUR ---
dp sent home health referral to [facility], patient likely to discharge tomorrow.
--- NOTE | 2019-02-20 15:33 | NUR ---
WOUND FOLLOW UP: PT. WAS SEEN TODAY BY DR. GARCIA AND MYSELF. PT. LEGS ARE C/D/I AND PT. IS IN GOOD SPIRITS. PLAN IS TO DISCHARGE HOME TOMORROW. RECOMMENDATIONS: CONTINUE WITH CURRENT PLAN OF CARE. PT. AND STAFF NURSE WERE INSTRUCTED ON PLAN OF CARE.
--- NOTE | 2019-02-20 18:18 | NUR ---
Assumed pt care this am, pt is progrressing well towards goals. Wound care for both legs scheduled on MWF, dressing is intact with no drainage. Diet is well tolerated. PIC line is flushing but not drawing blood. Pt is able to ambulate from the bed to the toilet with her walker, sat on her chair mor most of the day especially during meals. Isolation maintained and cart set in place d/t MRSA. Son is at the bedside, education done on wound care and fall prevention. Pt is progressing towards goals well. Plan is to dc tomorrow as per Dr. Lopez. CASEY vides, no issues or concerns verbalized by the pt.
[2019-02-20 19:39] VITALS: BP 126/51
[2019-02-21 02:52] VITALS: BP 145/56
--- NOTE | 2019-02-21 04:34 | NUR ---
Pt. rested quietly at intervals during the night when checked on during frequent rounds. Up to the bathroom with assist of one,gait belt and a walker. Dressings to bilateral lower legs are dry and intact. Bed alarm is on.
[2019-02-21 07:21] VITALS: BP 138/64
[2019-02-21 11:39] VITALS: BP 138/64
--- NOTE | 2019-02-21 11:48 | NUR ---
DISCHARGE ORDERS RECEIVED. PATIENT DISCHARGING TO HOME WITH [facility]. DISCHARGE/HOME HEALTH ORDERS AND DISCHARGE SUMMARY FAXED TO [facility] INTAKE. CALL PLACED TO INTAKE, SPOKE WITH REA. REA TO FACILITATE PATIENS HH NEEDS AND STATES PATIENT TO BE SEEN TOMORROW.
[2019-02-21 13:06] LABS: ANION GAP 8 mmol/L (7-16); BUN 30 mg/dL (7-18); CALCIUM 8.6 mg/dL (8.5-10.1); CHLORIDE 103 mmol/L (98-107); CO2 27 mmol/L (21-32); CREATININE 1.1 mg/dL (0.6-1.0); GLUCOSE 151 mg/dL (74-106); POTASSIUM 4.7 mmol/L (3.5-5.1); SODIUM 138 mmol/L (136-145)
[2019-02-21 14:03] VITALS: BP 138/64
--- NOTE | 2019-02-21 14:28 | HC ---
[facility] [place] [address] CONSULTATION Name: CARLINE CURRY Room #: 461-P ADM IN M.R.#: [id number] Admission: 02/15/19 ������������������ Attend Phys: Eliseo Frank MD Discharge: ������������������ Date of : 42 Report #: [id number] THIS REPORT FOR: //name// CC: Eliseo Frank DATE OF SERVICE: 02/15/2019 CHIEF COMPLAINT: Multiple ulcerations due to pyoderma gangrenosum and cellulitis. HISTORY OF PRESENT ILLNESS: This is a 78-year-old female patient with whom I am familiar from multiple hospitalizations. She has chronic lower extremity ulcerations with biopsy documented pyoderma gangrenosum. She has had intermittent bouts of cellulitis. She has had increasing pain, swelling, redness and drainage of the lower extremities. She has been tried on outpatient antibiotics and has been failing outpatient therapy. She is admitted to the hospital for further treatment and evaluation. The patient complains of some pain at this time. She denies significant fever or chills, but has noticed increasing redness and drainage from her lower extremities. PAST MEDICAL HISTORY: Positive for chronic ulcers of the lower extremities due to pyoderma gangrenosum, history of type 2 diabetes mellitus, previous compound fracture of the left lower leg, hypertension, hyperlipidemia, hypothyroidism. ALLERGIES: INCLUDE SULFA. MEDICATIONS: Minocycline, tacrolimus, Lasix, pantoprazole, ReQuip, Mag-Ox, Amaryl, ondansetron, aspirin, vitamin C. SOCIAL HISTORY: Positive for being a former smoker, occasional alcohol consumption. FAMILY HISTORY: Positive for heart disease in her father. REVIEW OF SYSTEMS: CONSTITUTIONAL: The patient denies fever, chills or weight loss. NEUROLOGICAL: The patient denies focal weakness, numbness or tingling. EYES: The patient denies visual changes, redness or drainage. ENT: The patient denies earache, nasal drainage, or sore throat. CARDIOVASCULAR: The patient denies chest pain, palpitations, or diaphoresis. PULMONARY: The patient denies cough or shortness of breath. GASTROINTESTINAL: The patient denies nausea, vomiting, diarrhea, abdominal pain. ORTHOPEDIC: The patient does complain of pain, swelling, redness of both lower extremities as well as the ulcerations on both lower extremities. [address] [address] CONSULTATION Name: CARLINE CURRY Room #: 461-P ADM IN M.R.#: [id number] Admission: 02/15/19 ������������������ Attend Phys: Eliseo Frank MD Discharge: ������������������ Date of : 42 Report #: [id number] Other systems in a 14-point review of systems are negative. PHYSICAL EXAMINATION: VITAL SIGNS: At this time include temperature 98.3, pulse 80, respiratory rate of 18, blood pressure 148/57. GENERAL: This is a chronically ill-appearing female patient, who appears to be in minimal distress. HEENT: Head is normocephalic. Nose and throat clear. NECK: Supple. LUNGS: Clear. HEART: Regular rhythm. ABDOMEN: Soft. Bowel sounds present. EXTREMITIES: The lower extremities demonstrate palpable distal pulses. She has erythema extending almost to the level of the knee on both lower extremities. She has chronic ulcerations involving both lower extremities on the right side. The pretibial ulceration has gradually been getting smaller. This is a thin coating of a fibrinous material, some granulation tissue present. Large amounts of dry skin and flaking involving the entire lower extremity including the plantar aspect of the foot. Left lower extremity demonstrates 2 ulcerations, one medial and one lateral on the lower leg. Both are relatively clean and granulating, but both areas are new eruptions that developed as a result of her picking at some of the dry skin present. CLINICAL IMPRESSION: 1. Bilateral lower extremity cellulitis versus contact dermatitis. 2. History of pyoderma gangrenosum. 3. Diabetes mellitus. RECOMMENDATIONS: At this point in time, we will recommend topical clobetasol to the ulcers on the left lower leg plus or minus dapsone. Recommend Iodoflex followed by Xeroform gauze to the right lower leg ulceration. Recommend AmLactin to the dry skin. Consider urea cream on the bottoms of the feet. We will ask for Infectious Disease consultation regarding antibiotic therapy. Cultures will be obtained and are pending at this time. I appreciate being asked to see her in consultation. ��������������������������������������������� <ELECTRONICALLY SIGNED> ���������������������������������������� By: Maxim Freire MD ��������������������������������������������� 02/21/19 1428 [id number] 0050 Maxim Freire MD /nt
--- NOTE | 2019-02-21 14:47 | NUR ---
WOUND FOLLOW UP: PT. WAS SEEN TODAY BY DR. GARCIA AND MYSELF. PT. WOUND CARE WAS COMPLETED TODAY BY THE WOUND CARE TEAM. PT. TOLERATED WELL. PT. IS DISCHARGING HOME TODAY AND PLAN WAS DISCUSSED WITH PT. AND SON. RECOMMENDATIONS: CONTINUE WITH CURRENT PLAN OF CARE. PT. AND STAFF NURSE WERE INSTRUCTED ON PLAN OF CARE.
--- NOTE | 2019-02-21 15:41 | NUR ---
PT DISCHARGED HOME WITH HOME HEALTH. PT LEFT WITH SON, A&OX4, VSS, NO PAIN. DRESSING CHANGED TODAY BY WOUND NURSE, PICTURES PLACED IN CHART. DISCHARGE INSTRUCTIONS SENT HOME WITH PATIENT, VERBALIZED UNDERSTANDING. ALL BELONGINGS WITH PATIENT.
== END 2019-02-21 16:23 | disposition home health service (06) | DRG 602 ==
LOC: 4W 10:07
PROVIDERS: Internal Medicine Infectious Disease; ADMIT Family Medicine
PROC: 05HY33Z Insertion of Infusion Device into Upper Vein, Percutaneous Approach (ICD-10-PCS; principal; 2019-02-15)
DX: L03.116 Cellulitis of left lower limb (principal); E43 Unspecified severe protein-calorie malnutrition; L88 Pyoderma gangrenosum; Z68.41 Body mass index [BMI] 40.0-44.9, adult; E11.622 Type 2 diabetes mellitus with other skin ulcer; L03.115 Cellulitis of right lower limb; N18.9 Chronic kidney disease, unspecified; Z96.641 Presence of right artificial hip joint; E66.01 Morbid (severe) obesity due to excess calories; E03.9 Hypothyroidism, unspecified; L25.9 Unspecified contact dermatitis, unspecified cause; I12.9 Hypertensive chronic kidney disease with stage 1 through stage 4 chronic kidney disease, or unspecified chronic kidney disease; L98.499 Non-pressure chronic ulcer of skin of other sites with unspecified severity; E78.5 Hyperlipidemia, unspecified; K21.9 Gastro-esophageal reflux disease without esophagitis; Z82.49 Family history of ischemic heart disease and other diseases of the circulatory system; Z90.710 Acquired absence of both cervix and uterus; Z98.42 Cataract extraction status, left eye; Z98.41 Cataract extraction status, right eye; Z88.2 Allergy status to sulfonamides; Z88.8 Allergy status to other drugs, medicaments and biological substances; Z87.81 Personal history of (healed) traumatic fracture; Z87.891 Personal history of nicotine dependence; Z79.4 Long term (current) use of insulin; Z79.82 Long term (current) use of aspirin; Z79.899 Other long term (current) drug therapy
CPT/HCPCS: 10047

== ENCOUNTER → 2019-03-01 | Outpatient (CLI) | payer OTHER ==
[~2019-03-01] MED LIST changes: +DURAGESIC1 EAC4 TD; +DURAGESIC1 EACH TD; +NORTRIPTYLINE H10 M1 GT; +NORVASC5 MG PO; +PERCOCET PO
== END ==
LOC: HYPER
DX: E11.622 Type 2 diabetes mellitus with other skin ulcer (principal); L97.822 Non-pressure chronic ulcer of other part of left lower leg with fat layer exposed; L97.812 Non-pressure chronic ulcer of other part of right lower leg with fat layer exposed; S80.811A Abrasion, right lower leg, initial encounter; L88 Pyoderma gangrenosum; L84 Corns and callosities; E78.5 Hyperlipidemia, unspecified; I10 Essential (primary) hypertension; M19.90 Unspecified osteoarthritis, unspecified site; L86 Keratoderma in diseases classified elsewhere; Z79.84 Long term (current) use of oral hypoglycemic drugs; Z68.41 Body mass index [BMI] 40.0-44.9, adult; Z85.9 Personal history of malignant neoplasm, unspecified; X58.XXXA Exposure to other specified factors, initial encounter; Y93.89 Activity, other specified; Y92.89 Other specified places as the place of occurrence of the external cause; Y99.8 Other external cause status

== ENCOUNTER → 2019-03-08 | Outpatient (CLI) | payer OTHER | LOC: HYPER 12:51 | DX: E11.622 Type 2 diabetes mellitus with other skin ulcer (principal); L97.812 Non-pressure chronic ulcer of other part of right lower leg with fat layer exposed; L97.822 Non-pressure chronic ulcer of other part of left lower leg with fat layer exposed; L88 Pyoderma gangrenosum; L86 Keratoderma in diseases classified elsewhere; E78.5 Hyperlipidemia, unspecified; I10 Essential (primary) hypertension; K21.9 Gastro-esophageal reflux disease without esophagitis; M19.90 Unspecified osteoarthritis, unspecified site; Z79.84 Long term (current) use of oral hypoglycemic drugs; Z85.89 Personal history of malignant neoplasm of other organs and systems ==

== ENCOUNTER → 2019-03-15 | Outpatient (CLI) | payer OTHER | LOC: HYPER 06:47 | DX: E11.622 Type 2 diabetes mellitus with other skin ulcer (principal); L97.812 Non-pressure chronic ulcer of other part of right lower leg with fat layer exposed; L97.822 Non-pressure chronic ulcer of other part of left lower leg with fat layer exposed; L86 Keratoderma in diseases classified elsewhere; L88 Pyoderma gangrenosum; E78.5 Hyperlipidemia, unspecified; I10 Essential (primary) hypertension; M19.90 Unspecified osteoarthritis, unspecified site; R23.4 Changes in skin texture; Z85.828 Personal history of other malignant neoplasm of skin; Z79.84 Long term (current) use of oral hypoglycemic drugs ==

== ENCOUNTER → 2019-03-22 | Outpatient (CLI) | payer OTHER | LOC: HYPER 06:45 | DX: E11.622 Type 2 diabetes mellitus with other skin ulcer (principal); L97.812 Non-pressure chronic ulcer of other part of right lower leg with fat layer exposed; L97.822 Non-pressure chronic ulcer of other part of left lower leg with fat layer exposed; L88 Pyoderma gangrenosum; L86 Keratoderma in diseases classified elsewhere; I10 Essential (primary) hypertension; L84 Corns and callosities; E78.5 Hyperlipidemia, unspecified; M19.90 Unspecified osteoarthritis, unspecified site; Z85.828 Personal history of other malignant neoplasm of skin; Z79.84 Long term (current) use of oral hypoglycemic drugs ==

== ENCOUNTER → 2019-03-29 | Outpatient (CLI) | payer OTHER | LOC: HYPER 06:56 | DX: E11.622 Type 2 diabetes mellitus with other skin ulcer (principal); L97.812 Non-pressure chronic ulcer of other part of right lower leg with fat layer exposed; L97.822 Non-pressure chronic ulcer of other part of left lower leg with fat layer exposed; I10 Essential (primary) hypertension; L88 Pyoderma gangrenosum; L86 Keratoderma in diseases classified elsewhere; L84 Corns and callosities; E78.5 Hyperlipidemia, unspecified; M19.90 Unspecified osteoarthritis, unspecified site; Z85.828 Personal history of other malignant neoplasm of skin; Z79.84 Long term (current) use of oral hypoglycemic drugs ==

== ENCOUNTER → 2019-04-05 | Outpatient (CLI) | payer OTHER | LOC: HYPER 06:48 | DX: E11.622 Type 2 diabetes mellitus with other skin ulcer (principal); L97.812 Non-pressure chronic ulcer of other part of right lower leg with fat layer exposed; L97.822 Non-pressure chronic ulcer of other part of left lower leg with fat layer exposed; L88 Pyoderma gangrenosum; L86 Keratoderma in diseases classified elsewhere; R21 Rash and other nonspecific skin eruption; E78.5 Hyperlipidemia, unspecified; I10 Essential (primary) hypertension; M19.90 Unspecified osteoarthritis, unspecified site; Z79.84 Long term (current) use of oral hypoglycemic drugs ==

== ENCOUNTER → 2019-04-12 | Outpatient (CLI) | payer OTHER | LOC: HYPER 06:51 | DX: E11.622 Type 2 diabetes mellitus with other skin ulcer (principal); L97.812 Non-pressure chronic ulcer of other part of right lower leg with fat layer exposed; L97.822 Non-pressure chronic ulcer of other part of left lower leg with fat layer exposed; L86 Keratoderma in diseases classified elsewhere; L88 Pyoderma gangrenosum; L84 Corns and callosities; I10 Essential (primary) hypertension; R21 Rash and other nonspecific skin eruption; E78.5 Hyperlipidemia, unspecified; M19.90 Unspecified osteoarthritis, unspecified site; Z85.6 Personal history of leukemia; Z79.84 Long term (current) use of oral hypoglycemic drugs ==

== ENCOUNTER → 2019-04-19 | Outpatient (CLI) | payer OTHER | LOC: HYPER 06:51 | DX: E11.622 Type 2 diabetes mellitus with other skin ulcer (principal); L97.822 Non-pressure chronic ulcer of other part of left lower leg with fat layer exposed; L97.812 Non-pressure chronic ulcer of other part of right lower leg with fat layer exposed; L88 Pyoderma gangrenosum; L86 Keratoderma in diseases classified elsewhere; I10 Essential (primary) hypertension; L84 Corns and callosities; E78.5 Hyperlipidemia, unspecified; M19.90 Unspecified osteoarthritis, unspecified site; Z79.84 Long term (current) use of oral hypoglycemic drugs ==

== ENCOUNTER → 2019-04-26 | Outpatient (CLI) | payer OTHER | LOC: HYPER 06:43 | DX: E11.622 Type 2 diabetes mellitus with other skin ulcer (principal); L97.812 Non-pressure chronic ulcer of other part of right lower leg with fat layer exposed; L97.822 Non-pressure chronic ulcer of other part of left lower leg with fat layer exposed; E11.621 Type 2 diabetes mellitus with foot ulcer; L89.610 Pressure ulcer of right heel, unstageable; L97.411 Non-pressure chronic ulcer of right heel and midfoot limited to breakdown of skin; L88 Pyoderma gangrenosum; L86 Keratoderma in diseases classified elsewhere; E78.5 Hyperlipidemia, unspecified; I10 Essential (primary) hypertension; K21.9 Gastro-esophageal reflux disease without esophagitis; M19.90 Unspecified osteoarthritis, unspecified site; Z85.89 Personal history of malignant neoplasm of other organs and systems; Z79.84 Long term (current) use of oral hypoglycemic drugs ==

== ENCOUNTER → 2019-05-03 | Outpatient (CLI) | payer OTHER | LOC: HYPER 06:45 | DX: E11.621 Type 2 diabetes mellitus with foot ulcer (principal); L89.610 Pressure ulcer of right heel, unstageable; L97.411 Non-pressure chronic ulcer of right heel and midfoot limited to breakdown of skin; E11.622 Type 2 diabetes mellitus with other skin ulcer; L97.812 Non-pressure chronic ulcer of other part of right lower leg with fat layer exposed; L97.822 Non-pressure chronic ulcer of other part of left lower leg with fat layer exposed; L88 Pyoderma gangrenosum; L86 Keratoderma in diseases classified elsewhere; E78.5 Hyperlipidemia, unspecified; I10 Essential (primary) hypertension; K21.9 Gastro-esophageal reflux disease without esophagitis; M19.90 Unspecified osteoarthritis, unspecified site; Z85.89 Personal history of malignant neoplasm of other organs and systems; Z79.84 Long term (current) use of oral hypoglycemic drugs ==

== ENCOUNTER → 2019-05-24 | Outpatient (CLI) | payer OTHER | LOC: HYPER 05-16 06:27 | DX: E11.622 Type 2 diabetes mellitus with other skin ulcer (principal); L97.812 Non-pressure chronic ulcer of other part of right lower leg with fat layer exposed; L97.822 Non-pressure chronic ulcer of other part of left lower leg with fat layer exposed; L88 Pyoderma gangrenosum; L86 Keratoderma in diseases classified elsewhere; E78.5 Hyperlipidemia, unspecified; I10 Essential (primary) hypertension; M19.90 Unspecified osteoarthritis, unspecified site; Z85.89 Personal history of malignant neoplasm of other organs and systems; Z79.84 Long term (current) use of oral hypoglycemic drugs ==

== ENCOUNTER → 2019-06-07 | Outpatient (CLI) | payer OTHER | LOC: HYPER 05-09 09:21 | DX: E11.622 Type 2 diabetes mellitus with other skin ulcer (principal); L97.812 Non-pressure chronic ulcer of other part of right lower leg with fat layer exposed; L97.822 Non-pressure chronic ulcer of other part of left lower leg with fat layer exposed; L88 Pyoderma gangrenosum; L86 Keratoderma in diseases classified elsewhere; I10 Essential (primary) hypertension; L84 Corns and callosities; E78.5 Hyperlipidemia, unspecified; M19.90 Unspecified osteoarthritis, unspecified site; Z85.6 Personal history of leukemia; Z79.84 Long term (current) use of oral hypoglycemic drugs ==

== ENCOUNTER → 2019-06-20 | Outpatient (CLI) | payer OTHER | LOC: HYPER 07:04 | DX: E11.622 Type 2 diabetes mellitus with other skin ulcer (principal); L97.812 Non-pressure chronic ulcer of other part of right lower leg with fat layer exposed; L97.822 Non-pressure chronic ulcer of other part of left lower leg with fat layer exposed; L88 Pyoderma gangrenosum; L86 Keratoderma in diseases classified elsewhere; E78.5 Hyperlipidemia, unspecified; I10 Essential (primary) hypertension; K21.9 Gastro-esophageal reflux disease without esophagitis; M19.90 Unspecified osteoarthritis, unspecified site; Z79.84 Long term (current) use of oral hypoglycemic drugs; Z85.89 Personal history of malignant neoplasm of other organs and systems ==

== ENCOUNTER → 2019-07-05 | Outpatient (CLI) | payer OTHER | LOC: HYPER 06:54 | DX: E11.622 Type 2 diabetes mellitus with other skin ulcer (principal); L97.812 Non-pressure chronic ulcer of other part of right lower leg with fat layer exposed; L97.822 Non-pressure chronic ulcer of other part of left lower leg with fat layer exposed; L88 Pyoderma gangrenosum; L86 Keratoderma in diseases classified elsewhere; E78.5 Hyperlipidemia, unspecified; I10 Essential (primary) hypertension; K21.9 Gastro-esophageal reflux disease without esophagitis; M19.90 Unspecified osteoarthritis, unspecified site; Z85.89 Personal history of malignant neoplasm of other organs and systems; Z79.84 Long term (current) use of oral hypoglycemic drugs ==

== ENCOUNTER → 2019-07-19 | Outpatient (CLI) | payer OTHER | LOC: HYPER 07-18 06:57 | DX: E11.622 Type 2 diabetes mellitus with other skin ulcer (principal); L97.822 Non-pressure chronic ulcer of other part of left lower leg with fat layer exposed; L97.812 Non-pressure chronic ulcer of other part of right lower leg with fat layer exposed; L88 Pyoderma gangrenosum; L86 Keratoderma in diseases classified elsewhere; L84 Corns and callosities; I10 Essential (primary) hypertension; E78.5 Hyperlipidemia, unspecified; M19.90 Unspecified osteoarthritis, unspecified site; Z85.6 Personal history of leukemia; Z79.84 Long term (current) use of oral hypoglycemic drugs ==

== ENCOUNTER → 2019-07-25 | Outpatient (CLI) | payer OTHER | LOC: CAT 15:32 | DX: I67.82 Cerebral ischemia (principal); G31.9 Degenerative disease of nervous system, unspecified ==

== ENCOUNTER → 2019-08-01 | Outpatient (CLI) | payer OTHER ==
[~2019-08-01] MED LIST changes: +DEMADEX20 MG PO; +MEROPENEM 1 GM V1 GM IVPB
== END ==
LOC: HYPER 07:01
DX: E11.622 Type 2 diabetes mellitus with other skin ulcer (principal); L97.812 Non-pressure chronic ulcer of other part of right lower leg with fat layer exposed; L97.822 Non-pressure chronic ulcer of other part of left lower leg with fat layer exposed; L86 Keratoderma in diseases classified elsewhere; L88 Pyoderma gangrenosum; E78.5 Hyperlipidemia, unspecified; I10 Essential (primary) hypertension; M19.90 Unspecified osteoarthritis, unspecified site; Z85.89 Personal history of malignant neoplasm of other organs and systems; Z79.84 Long term (current) use of oral hypoglycemic drugs; Z79.82 Long term (current) use of aspirin

== ENCOUNTER 2019-08-02 13:08 | Inpatient (IN) | payer OTHER ==
[~2019-08-02] VITALS: Ht 157.5 cm; Wt 108.0 kg
[~2019-08-02 13:08] MED LIST changes: -DEMADEX20 MG PO; -MEROPENEM 1 GM V1 GM IVPB
[2019-08-02 14:09] VITALS: BP 159/74
[2019-08-02] MEDS ORDERED: DEMADEX20 MG PO (14:58)
[2019-08-02 15:27] LABS: HEMATOCRIT 35.5 % (37.0-47.0); HEMOGLOBIN 11.7 gm/dL (12.0-15.0); MCH 31.3 pg (26.0-34.0); RBC 3.74 mil/uL (4.20-5.00); RDW 15.1 % (10.5-14.5); WBC 8.7 thou/uL (4.0-11.0)
[2019-08-02 15:40] LABS: ALBUMIN 2.7 g/dL (3.4-5.0); CREATININE 1.4 mg/dL (0.6-1.0); POTASSIUM 3.8 mmol/L (3.5-5.1); TOTAL BILIRUBIN 0.3 mg/dL (<0.1-1.0); TOTAL PROTEIN 6.7 g/dL (6.4-8.2)
--- NOTE | 2019-08-02 19:52 | NUR ---
Pt direct admit from office. Cellulitis tatyana extremities. Wound pictures taken and in chart. Pt states she fell about 1 week ago. Bruise/scab on left hand. Wound care consulted. Pain controlled with prn pain meds. Fentanyl patch placed on right back. Dr. Frank saw pt. Med rec. completed. Fall precaitions in place. Report given to pete WESLEY.
[2019-08-02 20:25] VITALS: BP 147/68
[2019-08-03 03:35] VITALS: BP 147/77
[2019-08-03 07:41] VITALS: BP 169/85
--- NOTE | 2019-08-03 07:56 | NUR ---
Assumed pt care at 1900. A/OX4,VSS. Pt c/o pain to BLE,medicated with Percocet with partial relief reported. Pt is up with AX1, RW/GB. Pt has been NPO since midnight for BLE debridement. Fall precautions in place.Resting quietly with CPAP in place, will continue to monitor pt.
[2019-08-03 11:42] VITALS: BP 158/89
--- NOTE | 2019-08-03 12:17 | NUR ---
ASSESSMENT-PT AND HER SON LIVE TOGETHER. PT USES A ROLLER WALKER TO GET AROUND AND DOES HER ADLS. SON DOES THE COOKING, CLEANIN, LAUNDRY AND PROVIDES TRANSPORTATION FOR HER. PT IS ON SERVICE WITH [facility] AND HAS USED [facility] FOR INFUSION IN THE PAST. PT HAS ANOTHER SON AND DTR BUT THEY ARE OUT OF STATE. FOLLOWING. ANTICIPATE HOME WITH SERVICES ONCE MEDICALLY STABLE.
[2019-08-03 15:17] VITALS: BP 155/93
--- NOTE | 2019-08-03 18:40 | NUR ---
PT WENT TO OR THIS AM FOR DEBRIDEMENT. ROMARIO WRAPS OVER THE DSNGS. LEGS ELEVATED. AMBULATED TO THE BR FOR LARGE BM. DR. VANN IN TO SEE PT AND NEW ORDERS FOR ANTIBIOTICS. PAIN MEDS GIVEN.
[2019-08-03 20:50] VITALS: BP 124/62
[2019-08-04 03:25] VITALS: BP 158/85
--- NOTE | 2019-08-04 03:39 | NUR ---
PATIENT ALERT AND ORIENTED X4. UP TO BATHROOM WITH SBA OF ONE AND WALKER. RENAE WRAPS ON LOWER EXT, DRY AND INTACT. LEGS RED AND WARM TO TOUCH ABOVE DRESSINGS. ACCUCHECK WAS 291, RECEIVED 6 UNITS OF LISPRO INSULIN WELL 25 LANTUS. SNACK WAS GIVEN. C/O PAIN, MED GIVEN. SLEPT OFF AND ARM DURING NIGHT.
[2019-08-04 07:27] VITALS: BP 161/78
--- NOTE | 2019-08-04 15:03 | NUR ---
ASSUMED CARE OF PT AT 0700. INSULIN GIVEN WITH BREAKFAST DUE TO BLOOD GLUCOSE OF 173. PAIN MEDICATIONS GIVEN TO MAINTAIN A PAIN SCORE OF 3. CHANGED DRESSINGS TO LOWER LEFT EXTREMITIES OF THE LEGS WITH NS WET TO DRY WITH GAUZE AND WRAPPED WITH KERLIX. PT AMBULATES WITH WALKER. FENTANYL PATCH ON RIGHT UPPER SHOULDER. FALL PRECAUTIONS IN PLACE. BED IN LOWEST POSITION. WILL CONTINUE TO MONITOR PATIENT.
[2019-08-04 16:13] VITALS: BP 136/73
[2019-08-04 19:45] VITALS: BP 148/76
[2019-08-05 03:25] VITALS: BP 150/85
--- NOTE | 2019-08-05 05:02 | NUR ---
PATIENT AOX4 MAKES NEEDS KNOWN. BLE DRESSING ARE C/D/I. PATIENT AMBULATES TO THE BATHROOM WITH A WALKER WITH STEADY GAITS WITH X 1 ASSIST. PAIN CONTROLLED THIS SHIFT. FALL PRECAUTION IN PLACE. CALL LIGHT AND PERSONAL ITEM WITHIN REACH. PATIENT IN BED ASLEEP AT THIS TIME BREATHING REGULAR AND UNLABOURED.
[2019-08-05 05:05] LABS: ALBUMIN 2.4 g/dL (3.4-5.0); CALCIUM 8.7 mg/dL (8.5-10.1); CREATININE 1.2 mg/dL (0.6-1.0); PHOSPHORUS 3.9 mg/dL (2.5-4.9); POTASSIUM 3.8 mmol/L (3.5-5.1)
[2019-08-05 09:20] VITALS: BP 131/49
--- NOTE | 2019-08-05 16:21 | NUR ---
ASSUMED CARE OF PT AT 0700. PTS IV SITE WAS CHANGED TO THE RIGHT WRIST DUE TO PREVIOUS IV SITE BECOMING DISLODGED.WOUND CHANGE DONE BY MD. WOUNDS ARE CLEAN, DRY AND INTACT. PTS PAIN IS BEING CONTROLLED BY PAIN MEDICATION. PT IS STANDBY ASSIST AND PT REFUSED GAIT BELT. PT IS A&O X4. FALL PRECAUTIONS IN PLACE. AFIA LIGHT IN EACH. BED IN THE LOWEST POSITION. WILL CONTINUE TO MONIOR THE PT.
--- NOTE | 2019-08-05 17:29 | NUR ---
Pt fentanyl patch replaced. Old patch discarded appropriately. Documented disposal in [facility]. Witness unable to document on [facility] due to order falling off. Russell in pharmacy called to ask how to witness disposal. States he is not sure since order not available in [facility] no longer.
[2019-08-05 17:35] VITALS: BP 146/75
[2019-08-05 19:51] VITALS: BP 157/105
[2019-08-06 05:01] VITALS: BP 180/85
[2019-08-06 07:40] VITALS: BP 152/73
--- NOTE | 2019-08-06 07:52 | NUR ---
PATIENT ALERT AND ORIENTED X4. C/O PAIN MED GIVEN. UP TO BATHROOM WITH SBA AND WALKER.SLEPT OFF AND ON DURING NIGHT. ACCUCHECK WAS 204 LAST NIGHT, RECIEVED 4 UNITS LISPRO AND 25 LANTUS.
--- NOTE | 2019-08-06 09:29 | NUR ---
Assess due to high BMI 43.5=extreme class III obesity. Admit for treatment and debridement of chronic BLE wounds, cellulitis. Hx DM, BG under control. Appetite is good. Wt stable past 6 months. Eats high protein food and drinks 30g protein supplements at home. Hoping to go home today. Low nutrition risk
--- NOTE | 2019-08-06 12:02 | HC ---
[facility] [place] [address] CONSULTATION Name: CARLINE CURRY Room #: 427-P ADM IN M.R.#: [id number] Admission: 08/02/19 Attend Phys: Eliseo Frank MD Discharge: Date of : 42 Report #: [id number] THIS REPORT FOR: //name// CC: Eliseo Frank DATE OF SERVICE: 08/03/2019 INFECTIOUS DISEASE CONSULTATION REASON FOR CONSULTATION: I was asked to evaluate concerning Pseudomonas aeruginosa left lower extremity wound infection. HISTORY OF PRESENT ILLNESS: The patient is a 79-year-old with chronic venous stasis disease and lymphedema, who has had nonhealing wounds to both lower extremities. She does have a history of biopsy proven pyoderma gangrinosum in 2017. She has had nonhealing wounds. The left lateral leg wound has worsened over the last several weeks. She was placed on Levaquin for culture that was positive for Pseudomonas aeruginosa. She did well for the first week, but then the following week, she developed vertiginous symptoms. She then completed her course of therapy. I saw her back in the office earlier this week. Still a fair amount of drainage involving her wounds along with significant amount of edema. She had venous stasis dermatitis changes. Our recommendation was for inpatient care for wound debridement along with edema control and IV antibiotic therapy. She has had no fever, chills or sweats. Pain was moderate involving the wounds previously. She underwent surgical debridement of the wounds today and now is having more pain. No nausea, vomiting or diarrhea. She has had no dysuria. She has had some further dizziness today postop. REVIEW OF SYSTEMS: A 10-point review of system was negative other than what is described above. PAST MEDICAL HISTORY: Diabetes, hypertension, hyperlipidemia, hypothyroidism, gastroesophageal reflux, obesity, obstructive sleep apnea, right total hip arthroplasty, hysterectomy, bilateral cataract surgery, bilateral lower extremity wounds. ALLERGIES: CYCLOSPORINE AND SULFA. MEDICATIONS: Included Lasix, torsemide, pantoprazole, glimepiride, oxycodone, fentanyl, amlodipine, nortriptyline, magnesium, ropinirole, aspirin, ascorbic acid, insulin, levothyroxine, potassium, lactobacillus, multivitamin. FAMILY HISTORY: Noncontributory. SOCIAL HISTORY: Nonsmoker, no significant alcohol intake. [facility] [address] [place] [address] CONSULTATION Name: CARLINE CURRY Room #: 427-P [facility] IN M.R.#: [id number] Admission: 08/02/19 Attend Phys: Eliseo Frank MD Discharge: Date of : 42 Report #: [id number] PHYSICAL EXAMINATION: GENERAL: She was afebrile and hemodynamically stable. Moderately obese. EXTREMITIES: Skin with venous stasis dermatitis changes up to her proximal calf bilaterally. Her lower leg wounds were dressed and dry. Toes were warm to the touch with normal capillary refill. Sensation was intact. EYES: Without scleral icterus. MOUTH: Without mucositis. NECK: Supple, with no thyromegaly or mass. LUNGS: Clear. HEART: Regular, without murmur, gallop or rub. ABDOMEN: Soft, nontender with no hepatosplenomegaly or mass. GENITOURINARY: External genitalia unremarkable with no mass or lesion. RECTAL: Not performed. BACK: Nontender. NEUROLOGIC: Cranial nerves intact. Strength in upper and lower extremities was normal. Mood was normal. LABORATORY STUDIES: Sodium 140, potassium 3.8, bicarbonate 32, creatinine 1.4. Liver function tests normal. Hemoglobin 11.7, WBC 8.7, platelet count 197,000. Previous cultures had revealed Pseudomonas aeruginosa, pansensitive. IMPRESSION: A 79-year-old with: 1. Nonhealing wounds to her both lower extremities, left greater than right with a history of pyoderma gangrinosum. She was re-biopsied last week with no evidence of pyoderma. I am suspecting these are venous stasis wounds. She has had arterial studies, which showed no evidence of high-grade obstruction. She has secondary infection with Pseudomonas aeruginosa. 2. Mild anemia. 3. Renal insufficiency with creatinine 1.4. RECOMMENDATIONS: We will continue with meropenem. The patient feels like she has done the best on this drug. She still was having some mild vertiginous symptoms. Her son was concerned that possibly the ceftazidime was contributing here. We will therefore switch her medications and see how she does with that. We will also add some Antivert. She will be getting wound care, offloading and leg elevation with mild compression. Continue with diuresis, see if we can control her edema and get these wounds to heal. <ELECTRONICALLY SIGNED> By: Graham Evans MD 08/06/19 1202 [id number] [id number] Graham Evans MD /nt
[2019-08-06 15:30] VITALS: BP 152/73
[2019-08-06 15:33] VITALS: BP 152/73
--- NOTE | 2019-08-06 15:34 | NUR ---
FAXED CLINICAL UPDATE TO [facility] FOR RESUMPTION OF CARE POST DISCHARGE SPOKE WITH JOVAN IN INTAKE SHE RECEIVED INFO AND WILL RESUME CARE. DCP TO FOLLOW.
--- NOTE | 2019-08-06 16:06 | PATH ---
[facility] [address] [place] [address] PATHOLOGY RPT PROCEDURE Name: KANDICE CURRY Room #: 427-P ADM IN M.R.#: [id number] Admission: 08/02/19 Date of : 42 Discharge: Report #: [id number] Path Case #: [id number] [facility] Accession Number: [id number] . 01 Material submitted: . leg - TISSUE LEFT LATERAL LOWER LEG. Modifiers: left, lateral, lower . 01 Clinical history: . Chronic recurrent cellulitis bilateral lower extremity with ulcer . 02 Diagnosis: Tissue, left lateral lower leg, debridement: - Fragments of skin and subcutaneous tissue with marked acute inflammation, fibrinoid degeneration as well as gangrenous changes. . (IUV:mml; 08/06/2019) QLM 08/06/2019 1204 Local . 02 Electronically signed: . Kimmy Jack MD, Pathologist NPI- [id number] . 01 Gross description: . The specimen is received in formalin, labeled "Kandice Curry, tissue left lateral lower leg". Received are multiple segments of pink-evans, necrotic-appearing skin with attached pale evans normal skin measuring 6.9 x 2.8 x 1.0 cm in aggregate dimensions. The specimen is submitted representatively in cassette A1. (CAA; 08/03/2019) QA/[facility] 08/03/2019 1603 Local . 02 Pathologist provided ICD-10: L08.9 . 02 CPT . 491390 Specimen Comment: A courtesy copy of this report has been sent to Specimen Comment: [phone], . Specimen Comment: Report sent to / DR HERZOG Performed at: [address], [place] [id number] MD Dennis Huerta MD Phone: [phone] Performed at: [address] [id number] MD Kimmy Jack MD Phone: [phone]
[2019-08-06] MEDS ORDERED: MEROPENEM 1 GM V1 GM IVPB (16:45)
[2019-08-06 16:56] VITALS: BP 152/73
[2019-08-06 16:58] VITALS: BP 152/73
--- NOTE | 2019-08-06 17:05 | NUR ---
PT DISCHARGING TODAY TO HOME WITH [facility] FAXED DC ORDERS/SUMMARY SPOKE WITH JOVAN IN INTAKE AND SHE WILL NOTIFY PT TIME OF VISITS. PT WILL ALSO HAVE IV ABX WITH [facility] DC ORDERS GIVEN TO HUAN FROM [facility].
--- NOTE | 2019-08-06 17:35 | NUR ---
VAT CONSULTED FOR A PICC FOR HOME ABX. A 4FRSLPICC PLACED RUABASILIC WITH TIP CONFIRMED IN THE DSVC PER CXR. PLEASE SEE N/I FOR DETAILS
--- NOTE | 2019-08-06 17:44 | NUR ---
Assumed patient care at 0715. Patient is up with stand-by assist, using a walker. Patient has been independent with cares. Vital signs hace been stable throughu this shift, she is alert et oriented x's 4.Patient has had partial pain relief to the bilateral edema to lower extremities. She has been pleasant and cooperative. POC has been followed. Son signed [facility] paperwork after verbalizing an understanding (son is DPOA). Picc Line placed this afternoon for Home Infusions. [facility] to provide PT and Nursing care. Patient left with son at approximately 1745.
--- NOTE | 2019-08-06 17:51 | HC ---
[facility] [place] [address] [place] [address] CONSULTATION Name: CARLINE CURRY Room #: 427-P [facility] IN M.R.#: [id number] Admission: 08/02/19 Attend Phys: Eliseo Frank MD Discharge: 08/06/19 Date of : 42 Report #: [id number] THIS REPORT FOR: //name// CC: Eliseo Frank DATE OF SERVICE: 08/03/2019 CHIEF COMPLAINT: Lower extremity ulcerations. HISTORY OF PRESENT ILLNESS: This is a 79-year-old female patient with whom I am familiar from multiple previous hospitalizations. She has had recurrent bilateral lower extremity ulcerations, underlying pyoderma gangrenosum. She has had a culture that showed Pseudomonas. She has had increasing redness, drainage and has been admitted to the hospital for intravenous antibiotic therapy as well as a surgical debridement, which she has undergone this morning. She denies significant pain at this time. ALLERGIES: CYCLOSPORINE AND SULFA. CURRRENT MEDICATIONS: Include furosemide, torsemide, pantoprazole, glimepiride, Percocet, Duragesic, Norvasc, nortriptyline, Mag-Ox, Requip, aspirin, vitamin C, Lantus, Levoxyl. PAST MEDICAL HISTORY: Positive for type 2 diabetes mellitus, previous compound fracture, left lower leg, hypertension, bilateral lower extremity ulcerations, pyoderma gangrenosum and gastroesophageal reflux. SOCIAL HISTORY: The patient has occasional alcohol use. Negative for tobacco use. FAMILY HISTORY: Noncontributory. REVIEW OF SYSTEMS: CONSTITUTIONAL: The patient denies fever, chills or weight loss. EYES: The patient denies visual changes, redness, or drainage. ENT: The patient denies earache, nasal drainage, sore throat. CARDIOVASCULAR: The patient denies chest pain, palpitations or diaphoresis. PULMONARY: The patient denies cough or shortness of breath. GASTROINTESTINAL: The patient denies nausea, vomiting, diarrhea or abdominal pain. ORTHOPEDIC: The patient denies pain, but does have ulcerations, bilateral lower extremities. GENITOURINARY: The patient denies frequency of urination. NEUROLOGICAL: The patient denies focal weakness, numbness or tingling. PSYCHIATRIC: No anxiety, irritable, depression. ENDOCRINE: The patient denies heat or cold intolerance, polydipsia, polyphagia, [address] [address] CON[facility] Room #: [facility] IN M.R.#: [id number] Admission: 08/02/19 Attend Phys: Eliseo Frank MD Discharge: 08/06/19 Date of : 42 Report #: [id number] polyuria. Other systems in a 14-point review of systems are negative. PHYSICAL EXAMINATION: VITAL SIGNS: At this time include temperature 36.5, pulse 93, respiratory rate 19, blood pressure 155/93. GENERAL: This is a chronically ill-appearing female patient who appears to be in minimal distress. HEENT: Head normocephalic. Nose and throat clear. NECK: Supple. LUNGS: Clear. HEART: Sounds are present. ABDOMEN: Bowel sounds present. EXTREMITIES: The lower extremities demonstrate a fresh surgical dressings are in place. These were left intact as she has just returned from the operating room. NEUROLOGIC: The patient is alert and oriented and appropriate. LABORATORY DATA: Include white blood cell count 8.7, hemoglobin of 11.7. Sodium is 140, potassium 3.8, chloride 105, CO2 of 30, BUN 32, creatinine 1.2, glucose 111. Albumin is 2.4. CLINICAL IMPRESSION: 1. Chronic ulcerations, bilateral lower extremities, previously found to be due to pyoderma gangrenosum. Certainly, there is a component of venous dermatitis present as well. 2. Diabetes mellitus with hyperglycemia. 3. Moderate protein-calorie malnutrition. 4. Cellulitis, bilateral lower extremities. Recent culture is showing Pseudomonas. RECOMMENDATIONS: At this point in time, the patient has undergone debridement in the operating room and pressure dressings are in place. We will resume normal dressing changes over the weekend. We will recommend aggressive nutritional support to maximize wound healing and maintain glycemic control, intravenous antibiotic therapy. Cultures in the hospital is currently pending. I appreciate being asked to see her again in consultation. <ELECTRONICALLY SIGNED> By: Maxim Freire MD 08/06/19 1751 1114 2155 Maxim Freire MD /nt
--- NOTE | 2019-08-06 18:09 | NUR ---
HUAN FROM [facility] HERE EARLIER AND DID TEACHING WITH PT AND HER SON. OFFERED OPTIONS TO PT/[facility] AN DTHEY CHOSE [facility].
[2019-09-28] MEDS ORDERED: NOVOLOG100 UNIT/M SUBQ (13:43)
== END 2019-08-06 17:47 | disposition home health service (06) | DRG 570 ==
LOC: 4E 13:08
PROVIDERS: Hospitalist; ADMIT Family Medicine
DX: L03.116 Cellulitis of left lower limb (principal); E43 Unspecified severe protein-calorie malnutrition; Z68.41 Body mass index [BMI] 40.0-44.9, adult; E44.0 Moderate protein-calorie malnutrition; L97.929 Non-pressure chronic ulcer of unspecified part of left lower leg with unspecified severity; L97.919 Non-pressure chronic ulcer of unspecified part of right lower leg with unspecified severity; N17.9 Acute kidney failure, unspecified; L88 Pyoderma gangrenosum; L03.115 Cellulitis of right lower limb; I89.0 Lymphedema, not elsewhere classified; E78.5 Hyperlipidemia, unspecified; E03.9 Hypothyroidism, unspecified; K21.9 Gastro-esophageal reflux disease without esophagitis; G47.33 Obstructive sleep apnea (adult) (pediatric); E11.36 Type 2 diabetes mellitus with diabetic cataract; Z96.641 Presence of right artificial hip joint; D64.9 Anemia, unspecified; B96.5 Pseudomonas (aeruginosa) (mallei) (pseudomallei) as the cause of diseases classified elsewhere; E11.65 Type 2 diabetes mellitus with hyperglycemia; L30.9 Dermatitis, unspecified; G89.29 Other chronic pain; E66.01 Morbid (severe) obesity due to excess calories; N18.9 Chronic kidney disease, unspecified; I12.9 Hypertensive chronic kidney disease with stage 1 through stage 4 chronic kidney disease, or unspecified chronic kidney disease; E11.22 Type 2 diabetes mellitus with diabetic chronic kidney disease; I87.8 Other specified disorders of veins; G25.81 Restless legs syndrome; Z66 Do not resuscitate; B96.4 Proteus (mirabilis) (morganii) as the cause of diseases classified elsewhere; Z90.710 Acquired absence of both cervix and uterus; Z88.2 Allergy status to sulfonamides; Z88.8 Allergy status to other drugs, medicaments and biological substances; Z98.42 Cataract extraction status, left eye; Z98.41 Cataract extraction status, right eye; Z79.899 Other long term (current) drug therapy; Z79.82 Long term (current) use of aspirin; Z79.4 Long term (current) use of insulin
CPT/HCPCS: 10783; 27000; 50010; 50101; 50386; 50403; 57119; 57120; 57192; 62110; 62900; 70005

== ENCOUNTER → 2019-08-16 | Outpatient (CLI) | payer OTHER ==
[~2019-08-16] MED LIST changes: +DEMADEX20 MG PO; +MEROPENEM 1 GM V1 GM IVPB
== END ==
LOC: HYPER 12:11
DX: E11.622 Type 2 diabetes mellitus with other skin ulcer (principal); L97.812 Non-pressure chronic ulcer of other part of right lower leg with fat layer exposed; L97.822 Non-pressure chronic ulcer of other part of left lower leg with fat layer exposed; L88 Pyoderma gangrenosum; L86 Keratoderma in diseases classified elsewhere; L84 Corns and callosities; I10 Essential (primary) hypertension; E78.5 Hyperlipidemia, unspecified; M19.90 Unspecified osteoarthritis, unspecified site; Z85.6 Personal history of leukemia; Z79.84 Long term (current) use of oral hypoglycemic drugs

== ENCOUNTER → 2019-08-30 | Outpatient (CLI) | payer OTHER | LOC: HYPER 13:30 | DX: E11.622 Type 2 diabetes mellitus with other skin ulcer (principal); L97.812 Non-pressure chronic ulcer of other part of right lower leg with fat layer exposed; L97.822 Non-pressure chronic ulcer of other part of left lower leg with fat layer exposed; S90.821D Blister (nonthermal), right foot, subsequent encounter; L88 Pyoderma gangrenosum; L86 Keratoderma in diseases classified elsewhere; L84 Corns and callosities; I10 Essential (primary) hypertension; E78.5 Hyperlipidemia, unspecified; M19.90 Unspecified osteoarthritis, unspecified site; Z79.84 Long term (current) use of oral hypoglycemic drugs; X58.XXXD Exposure to other specified factors, subsequent encounter ==

== ENCOUNTER → 2019-09-11 | Outpatient (CLI) | payer OTHER | LOC: HYPER 07:37 | DX: E11.622 Type 2 diabetes mellitus with other skin ulcer (principal); L97.812 Non-pressure chronic ulcer of other part of right lower leg with fat layer exposed; L97.822 Non-pressure chronic ulcer of other part of left lower leg with fat layer exposed; S90.821D Blister (nonthermal), right foot, subsequent encounter; L88 Pyoderma gangrenosum; L86 Keratoderma in diseases classified elsewhere; L84 Corns and callosities; I10 Essential (primary) hypertension; E78.5 Hyperlipidemia, unspecified; M19.90 Unspecified osteoarthritis, unspecified site; Z85.6 Personal history of leukemia; Z79.84 Long term (current) use of oral hypoglycemic drugs; X58.XXXD Exposure to other specified factors, subsequent encounter ==

== ENCOUNTER → 2019-09-27 | Outpatient (CLI) | payer OTHER ==
[~2019-09-27] MED LIST changes: +NOVOLOG100 UNIT/M SUBQ
== END ==
LOC: HYPER 08:35
DX: E11.622 Type 2 diabetes mellitus with other skin ulcer (principal); L97.812 Non-pressure chronic ulcer of other part of right lower leg with fat layer exposed; L97.822 Non-pressure chronic ulcer of other part of left lower leg with fat layer exposed; L88 Pyoderma gangrenosum; L86 Keratoderma in diseases classified elsewhere; L84 Corns and callosities; I10 Essential (primary) hypertension; E78.5 Hyperlipidemia, unspecified; M19.90 Unspecified osteoarthritis, unspecified site; Z79.84 Long term (current) use of oral hypoglycemic drugs

== ENCOUNTER → 2019-09-28 | Outpatient (CLI) | payer OTHER ==
[~2019-09-28] VITALS: Ht 154.9 cm; Wt 103.4 kg
[2019-09-28 13:24] VITALS: BP 144/51
== END | disposition home or self-care (01) ==
LOC: CATH 09:21
DX: I87.1 Compression of vein (principal); I87.2 Venous insufficiency (chronic) (peripheral); R22.9 Localized swelling, mass and lump, unspecified; E11.9 Type 2 diabetes mellitus without complications; I50.9 Heart failure, unspecified; I73.9 Peripheral vascular disease, unspecified; D64.9 Anemia, unspecified; E66.09 Other obesity due to excess calories; Z88.2 Allergy status to sulfonamides; Z79.4 Long term (current) use of insulin; Z96.649 Presence of unspecified artificial hip joint; Z88.8 Allergy status to other drugs, medicaments and biological substances; Z79.82 Long term (current) use of aspirin

== ENCOUNTER → 2019-10-08 | Outpatient (CLI) | payer OTHER ==
[~2019-10-08] VITALS: Ht 154.9 cm; Wt 104.0 kg
[2019-10-08 07:42] VITALS: BP 143/56
[2019-10-08 07:57] LABS: HEMATOCRIT 35.9 % (37.0-47.0); HEMOGLOBIN 11.6 gm/dL (12.0-15.0); MCH 29.4 pg (26.0-34.0); MCHC 32.3 g/dL (28.0-37.0); MCV 90.9 fL (80.0-100.0); RBC 3.95 mil/uL (4.20-5.00); WBC 8.3 thou/uL (4.0-11.0)
[2019-10-08 08:06] LABS: CALCIUM 9.8 mg/dL (8.5-10.1); CREATININE 1.6 mg/dL (0.6-1.0); POTASSIUM 4.3 mmol/L (3.5-5.1)
== END | disposition home or self-care (01) ==
LOC: CATH 07:06
PROVIDERS: Nuclear Medicine Nuclear Cardiology
DX: I87.2 Venous insufficiency (chronic) (peripheral) (principal); I87.322 Chronic venous hypertension (idiopathic) with inflammation of left lower extremity; I70.248 Atherosclerosis of native arteries of left leg with ulceration of other part of lower leg; M79.89 Other specified soft tissue disorders; I70.1 Atherosclerosis of renal artery; L97.929 Non-pressure chronic ulcer of unspecified part of left lower leg with unspecified severity; I11.0 Hypertensive heart disease with heart failure; I50.9 Heart failure, unspecified; E11.9 Type 2 diabetes mellitus without complications; E66.09 Other obesity due to excess calories; Z79.4 Long term (current) use of insulin; Z82.49 Family history of ischemic heart disease and other diseases of the circulatory system; Z90.710 Acquired absence of both cervix and uterus; Z96.649 Presence of unspecified artificial hip joint; Z88.2 Allergy status to sulfonamides; Z88.8 Allergy status to other drugs, medicaments and biological substances; Z79.82 Long term (current) use of aspirin; Z79.899 Other long term (current) drug therapy

== ENCOUNTER → 2019-10-15 | Outpatient (CLI) | payer OTHER | LOC: HYPER 13:06 | DX: E11.622 Type 2 diabetes mellitus with other skin ulcer (principal); L97.822 Non-pressure chronic ulcer of other part of left lower leg with fat layer exposed; L97.812 Non-pressure chronic ulcer of other part of right lower leg with fat layer exposed; L88 Pyoderma gangrenosum; L86 Keratoderma in diseases classified elsewhere; L84 Corns and callosities; E78.5 Hyperlipidemia, unspecified; M19.90 Unspecified osteoarthritis, unspecified site; Z85.6 Personal history of leukemia; Z79.84 Long term (current) use of oral hypoglycemic drugs ==

== ENCOUNTER → 2019-10-23 | Outpatient (CLI) | payer OTHER | LOC: HYPER 12:57 | DX: E11.622 Type 2 diabetes mellitus with other skin ulcer (principal); L97.812 Non-pressure chronic ulcer of other part of right lower leg with fat layer exposed; L97.822 Non-pressure chronic ulcer of other part of left lower leg with fat layer exposed; L88 Pyoderma gangrenosum; L86 Keratoderma in diseases classified elsewhere; E78.5 Hyperlipidemia, unspecified; I10 Essential (primary) hypertension; K21.9 Gastro-esophageal reflux disease without esophagitis; M19.90 Unspecified osteoarthritis, unspecified site; Z85.89 Personal history of malignant neoplasm of other organs and systems; Z79.84 Long term (current) use of oral hypoglycemic drugs ==

== ENCOUNTER → 2019-11-13 | Outpatient (CLI) | payer OTHER | LOC: HYPER 13:01 | DX: E11.622 Type 2 diabetes mellitus with other skin ulcer (principal); L97.812 Non-pressure chronic ulcer of other part of right lower leg with fat layer exposed; L97.822 Non-pressure chronic ulcer of other part of left lower leg with fat layer exposed; L88 Pyoderma gangrenosum; L86 Keratoderma in diseases classified elsewhere; L84 Corns and callosities; E78.5 Hyperlipidemia, unspecified; I10 Essential (primary) hypertension; M19.90 Unspecified osteoarthritis, unspecified site; Z85.828 Personal history of other malignant neoplasm of skin; Z99.81 Dependence on supplemental oxygen; Z79.82 Long term (current) use of aspirin; Z79.84 Long term (current) use of oral hypoglycemic drugs ==

== ENCOUNTER → 2019-11-22 | Outpatient (CLI) | payer OTHER | LOC: HYPER 13:18 | DX: E11.622 Type 2 diabetes mellitus with other skin ulcer (principal); L97.812 Non-pressure chronic ulcer of other part of right lower leg with fat layer exposed; L97.825 Non-pressure chronic ulcer of other part of left lower leg with muscle involvement without evidence of necrosis; L88 Pyoderma gangrenosum; L86 Keratoderma in diseases classified elsewhere; E78.5 Hyperlipidemia, unspecified; I10 Essential (primary) hypertension; K21.9 Gastro-esophageal reflux disease without esophagitis; M19.90 Unspecified osteoarthritis, unspecified site; Z79.84 Long term (current) use of oral hypoglycemic drugs; Z85.89 Personal history of malignant neoplasm of other organs and systems ==

== ENCOUNTER → 2019-12-06 | Outpatient (CLI) | payer OTHER | LOC: HYPER 13:22 | DX: E11.622 Type 2 diabetes mellitus with other skin ulcer (principal); L97.812 Non-pressure chronic ulcer of other part of right lower leg with fat layer exposed; L97.825 Non-pressure chronic ulcer of other part of left lower leg with muscle involvement without evidence of necrosis; L88 Pyoderma gangrenosum; L84 Corns and callosities; L86 Keratoderma in diseases classified elsewhere; E78.5 Hyperlipidemia, unspecified; I10 Essential (primary) hypertension; M19.90 Unspecified osteoarthritis, unspecified site; Z85.89 Personal history of malignant neoplasm of other organs and systems; Z79.84 Long term (current) use of oral hypoglycemic drugs ==

== ENCOUNTER → 2019-12-12 | Outpatient (CLI) | payer OTHER | LOC: HYPER 12:58 | DX: E11.622 Type 2 diabetes mellitus with other skin ulcer (principal); L97.812 Non-pressure chronic ulcer of other part of right lower leg with fat layer exposed; L97.822 Non-pressure chronic ulcer of other part of left lower leg with fat layer exposed; L86 Keratoderma in diseases classified elsewhere; L88 Pyoderma gangrenosum; L84 Corns and callosities; E78.5 Hyperlipidemia, unspecified; I10 Essential (primary) hypertension; M19.90 Unspecified osteoarthritis, unspecified site; Z79.84 Long term (current) use of oral hypoglycemic drugs ==

== ENCOUNTER → 2020-01-03 | Outpatient (CLI) | payer OTHER | LOC: HYPER 13:04 | DX: E11.622 Type 2 diabetes mellitus with other skin ulcer (principal); L97.812 Non-pressure chronic ulcer of other part of right lower leg with fat layer exposed; L97.822 Non-pressure chronic ulcer of other part of left lower leg with fat layer exposed; L88 Pyoderma gangrenosum; L86 Keratoderma in diseases classified elsewhere; I10 Essential (primary) hypertension; E78.5 Hyperlipidemia, unspecified; K21.9 Gastro-esophageal reflux disease without esophagitis; M19.90 Unspecified osteoarthritis, unspecified site; Z85.89 Personal history of malignant neoplasm of other organs and systems; Z79.84 Long term (current) use of oral hypoglycemic drugs ==

== ENCOUNTER → 2020-01-08 | Outpatient (CLI) | payer OTHER | LOC: SJCVCIMAG 10:34 | DX: I82.812 Embolism and thrombosis of superficial veins of left lower extremity (principal); I87.2 Venous insufficiency (chronic) (peripheral); E11.42 Type 2 diabetes mellitus with diabetic polyneuropathy; E11.51 Type 2 diabetes mellitus with diabetic peripheral angiopathy without gangrene; Z79.4 Long term (current) use of insulin ==

== ENCOUNTER → 2020-01-09 | Outpatient (CLI) | payer OTHER | LOC: HYPER 13:34 | DX: E11.622 Type 2 diabetes mellitus with other skin ulcer (principal); L97.812 Non-pressure chronic ulcer of other part of right lower leg with fat layer exposed; L97.822 Non-pressure chronic ulcer of other part of left lower leg with fat layer exposed; L88 Pyoderma gangrenosum; L86 Keratoderma in diseases classified elsewhere; E78.5 Hyperlipidemia, unspecified; I10 Essential (primary) hypertension; M19.90 Unspecified osteoarthritis, unspecified site; Z85.89 Personal history of malignant neoplasm of other organs and systems; Z79.84 Long term (current) use of oral hypoglycemic drugs ==

== ENCOUNTER → 2020-01-17 | Outpatient (CLI) | payer OTHER | LOC: HYPER 12:48 | DX: E11.622 Type 2 diabetes mellitus with other skin ulcer (principal); L97.812 Non-pressure chronic ulcer of other part of right lower leg with fat layer exposed; L97.822 Non-pressure chronic ulcer of other part of left lower leg with fat layer exposed; L86 Keratoderma in diseases classified elsewhere; I87.2 Venous insufficiency (chronic) (peripheral); L88 Pyoderma gangrenosum; L84 Corns and callosities; E78.5 Hyperlipidemia, unspecified; I10 Essential (primary) hypertension; M19.90 Unspecified osteoarthritis, unspecified site; Z79.84 Long term (current) use of oral hypoglycemic drugs; Z79.82 Long term (current) use of aspirin ==

== ENCOUNTER → 2020-03-18 | Outpatient (CLI) | payer OTHER | LOC: HYPER 10:15 | DX: E11.622 Type 2 diabetes mellitus with other skin ulcer (principal); L97.825 Non-pressure chronic ulcer of other part of left lower leg with muscle involvement without evidence of necrosis; L97.812 Non-pressure chronic ulcer of other part of right lower leg with fat layer exposed; L86 Keratoderma in diseases classified elsewhere; I87.2 Venous insufficiency (chronic) (peripheral); L88 Pyoderma gangrenosum; L84 Corns and callosities; E78.5 Hyperlipidemia, unspecified; I10 Essential (primary) hypertension; M19.90 Unspecified osteoarthritis, unspecified site; Z85.89 Personal history of malignant neoplasm of other organs and systems; Z79.84 Long term (current) use of oral hypoglycemic drugs; Z79.82 Long term (current) use of aspirin ==

== ENCOUNTER → 2020-04-14 | Outpatient (CLI) | payer OTHER | LOC: HYPER 13:32 | PROVIDERS: ATTEND Emergency Medicine | DX: E11.622 Type 2 diabetes mellitus with other skin ulcer (principal); L97.812 Non-pressure chronic ulcer of other part of right lower leg with fat layer exposed; L97.822 Non-pressure chronic ulcer of other part of left lower leg with fat layer exposed; L88 Pyoderma gangrenosum; L86 Keratoderma in diseases classified elsewhere; L84 Corns and callosities; E78.5 Hyperlipidemia, unspecified; I87.2 Venous insufficiency (chronic) (peripheral); I10 Essential (primary) hypertension; K21.9 Gastro-esophageal reflux disease without esophagitis; M19.90 Unspecified osteoarthritis, unspecified site; Z79.84 Long term (current) use of oral hypoglycemic drugs; Z85.89 Personal history of malignant neoplasm of other organs and systems ==

== ENCOUNTER → 2020-04-30 | Outpatient (CLI) | payer OTHER | LOC: HYPER 07:37 | PROVIDERS: ATTEND Emergency Medicine | DX: E11.622 Type 2 diabetes mellitus with other skin ulcer (principal); L97.812 Non-pressure chronic ulcer of other part of right lower leg with fat layer exposed; L97.822 Non-pressure chronic ulcer of other part of left lower leg with fat layer exposed; L86 Keratoderma in diseases classified elsewhere; I87.2 Venous insufficiency (chronic) (peripheral); L84 Corns and callosities; E78.5 Hyperlipidemia, unspecified; I10 Essential (primary) hypertension; M19.90 Unspecified osteoarthritis, unspecified site; Z79.84 Long term (current) use of oral hypoglycemic drugs; Z85.89 Personal history of malignant neoplasm of other organs and systems; Z79.82 Long term (current) use of aspirin ==

== ENCOUNTER → 2020-05-15 | Outpatient (CLI) | payer OTHER | LOC: HYPER 06:58 | PROVIDERS: ATTEND Emergency Medicine | DX: E11.622 Type 2 diabetes mellitus with other skin ulcer (principal); L97.812 Non-pressure chronic ulcer of other part of right lower leg with fat layer exposed; L97.822 Non-pressure chronic ulcer of other part of left lower leg with fat layer exposed; L88 Pyoderma gangrenosum; L86 Keratoderma in diseases classified elsewhere; L84 Corns and callosities; E78.5 Hyperlipidemia, unspecified; I87.2 Venous insufficiency (chronic) (peripheral); I10 Essential (primary) hypertension; K21.9 Gastro-esophageal reflux disease without esophagitis; M19.90 Unspecified osteoarthritis, unspecified site; Z79.84 Long term (current) use of oral hypoglycemic drugs; Z85.89 Personal history of malignant neoplasm of other organs and systems ==

== ENCOUNTER → 2020-05-26 | Outpatient (CLI) | payer OTHER ==
[2020-05-26 14:43] LABS: HEMATOCRIT 34.7 % (37.0-47.0); HEMOGLOBIN 11.2 gm/dL (12.0-15.0); MCH 26.5 pg (26.0-34.0); MCHC 32.3 g/dL (28.0-37.0); MCV 82.2 fL (80.0-100.0); PLATELET COUNT 264 thou/uL (150-400); RBC 4.22 mil/uL (4.20-5.00); RDW 21.3 % (10.5-14.5); WBC 14.4 thou/uL (4.0-11.0)
--- NOTE | 2020-05-26 14:50 | NUR ---
DR ESPOSITO ORDERED PICC LINE FOR HOME ABX ON PT, IN OUTPT DISCUSSED BENEFITS AND RISKS OF PICC LINE WITH PT AND SON, VERBALIZED UNDERSTANDING. PT'S LABS,HISTORY AND ORDER REVIEWED. CONSENT SIGNED.BEDSIDE TIMEOUT COMPLETE. ATTEMPTED ROSSANA BASILIC AND BRACHIAL UNABLE TO PASS GUIDEWIRE. SCOTT BRACHIAL WIDELY PATENT WITH USG. 4FR SL POWER PICC TRIMMED TO 48CM INSERTED TO 2CM EXTERNAL. STAT CXR DONE, VERIFIED PLACEMENT. PICC WALLET CARD GIVEN TO PT. DR Daija VANN HERE TO EXAMINE LEG WOUNDS. LABS ORDERED AND DRAWN FROM PICC LINE BY IV TEAM. PT TOLERATED WELL
[2020-05-26 15:01] LABS: ALBUMIN 3.1 g/dL (3.4-5.0); CREATININE 1.2 mg/dL (0.6-1.0); POTASSIUM 3.6 mmol/L (3.5-5.1); TOTAL BILIRUBIN 0.4 mg/dL (0.2-1.0); TOTAL PROTEIN 8.3 g/dL (6.4-8.2)
[2020-05-26 15:17] LABS: ABSOLUTE NEUTROPHILS 9.6 thou/uL (1.4-8.2)
[2020-05-26 15:18] LABS: ANISOCYTOSIS 1+; PLATELET ESTIMATE NORMAL
== END | disposition home or self-care (01) ==
LOC: SPEC 12:46
PROVIDERS: Specialist; ATTEND Emergency Medicine
DX: Z45.2 Encounter for adjustment and management of vascular access device (principal); S81.802A Unspecified open wound, left lower leg, initial encounter; S81.801A Unspecified open wound, right lower leg, initial encounter; L97.919 Non-pressure chronic ulcer of unspecified part of right lower leg with unspecified severity; L97.929 Non-pressure chronic ulcer of unspecified part of left lower leg with unspecified severity; I10 Essential (primary) hypertension; E11.9 Type 2 diabetes mellitus without complications; E03.9 Hypothyroidism, unspecified; E78.5 Hyperlipidemia, unspecified; G47.33 Obstructive sleep apnea (adult) (pediatric); K21.9 Gastro-esophageal reflux disease without esophagitis; E66.09 Other obesity due to excess calories; Z90.710 Acquired absence of both cervix and uterus; Z98.890 Other specified postprocedural states; Z79.899 Other long term (current) drug therapy; Z98.41 Cataract extraction status, right eye; Z98.42 Cataract extraction status, left eye; Z96.641 Presence of right artificial hip joint; Z88.2 Allergy status to sulfonamides; Z88.8 Allergy status to other drugs, medicaments and biological substances; X58.XXXA Exposure to other specified factors, initial encounter; Y93.89 Activity, other specified; Y92.89 Other specified places as the place of occurrence of the external cause; Y99.8 Other external cause status
CPT/HCPCS: 27000

== ENCOUNTER 2020-06-02 12:01 | Day surgery (SDC) | payer OTHER ==
[~2020-06-02] VITALS: Ht 154.9 cm; Wt 108.4 kg
[~2020-06-02 12:01] MED LIST changes: +BASAGLAR K100 UNIT/1 INH; +MEROPENEM1 GM IV; +NEURONTIN300 MG PO; -NORTRIPTYLINE H10 M1 GT; +NORTRIPTYLINE H10 M1 PO; +VANCOMYCIN HCL10 GM IV
[2020-06-02 13:59] VITALS: BP 173/95
[2020-06-02 16:41] VITALS: BP 173/95
--- NOTE | 2020-06-03 07:30 | EKG ---
[facility] [place] [address] ELECTROCARDIOGRAM REPORT Name: CARLINE CURRY Room #: [facility] [place] [address] M.R.#: [id number] Admission: 06/02/20 Attend Phys: Braden Graham Discharge: Date of : 42 Report #: [id number] THIS REPORT FOR: cc: Eliseo Frank MD, Neal A. 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 : 1940 Requested By: Braden Soria Order Number: [id number] MD: Jaime Cintron Measurements Intervals [place] Rate: 93 P: 64 MD: 167 QRS: -22 QRSD: 95 T: 11 QT: 383 QTc: 477 Interpretive Statements Sinus rhythm No significant abnormality Compared to ECG 03/19/2018 10:13:27 Poor R-wave progression no longer present T-wave abnormality no longer present Electronically Signed On 06-03-2020 7:30:16 CDT by Jaime Cintron [email or web address] <ELECTRONICALLY SIGNED> By: Jaime Cintron MD, FAC 06/03/20 0730 1337 1337 Jaime Cintron MD, FAC /EPI
== END 2020-06-02 17:18 | disposition home or self-care (01) ==
LOC: OR 12:01 → TBA 12:01 → OR 15:46
PROVIDERS: ATTEND Surgery
DX: T81.89XA Other complications of procedures, not elsewhere classified, initial encounter (principal); S81.802A Unspecified open wound, left lower leg, initial encounter; S81.801A Unspecified open wound, right lower leg, initial encounter; I11.0 Hypertensive heart disease with heart failure; I50.9 Heart failure, unspecified; E11.9 Type 2 diabetes mellitus without complications; E78.5 Hyperlipidemia, unspecified; G47.30 Sleep apnea, unspecified; K21.9 Gastro-esophageal reflux disease without esophagitis; I87.2 Venous insufficiency (chronic) (peripheral); E66.01 Morbid (severe) obesity due to excess calories; Z11.59 Encounter for screening for other viral diseases; Z98.890 Other specified postprocedural states; Z79.899 Other long term (current) drug therapy; Z90.710 Acquired absence of both cervix and uterus; Z96.641 Presence of right artificial hip joint; Z85.828 Personal history of other malignant neoplasm of skin; Z68.41 Body mass index [BMI] 40.0-44.9, adult; X58.XXXA Exposure to other specified factors, initial encounter; Y93.89 Activity, other specified; Y92.89 Other specified places as the place of occurrence of the external cause; Y99.8 Other external cause status; Y83.8 Other surgical procedures as the cause of abnormal reaction of the patient, or of later complication, without mention of misadventure at the time of the procedure
CPT/HCPCS: 50010; 50101; 50386; 57119; 57120; 62110; 62900; 70005

== ENCOUNTER → 2020-06-06 | Outpatient (CLI) | payer OTHER | LOC: HYPER 06-05 17:10 | PROVIDERS: ATTEND Emergency Medicine | DX: E11.622 Type 2 diabetes mellitus with other skin ulcer (principal); L97.822 Non-pressure chronic ulcer of other part of left lower leg with fat layer exposed; L97.812 Non-pressure chronic ulcer of other part of right lower leg with fat layer exposed; I87.2 Venous insufficiency (chronic) (peripheral); L88 Pyoderma gangrenosum; L86 Keratoderma in diseases classified elsewhere; L84 Corns and callosities; I10 Essential (primary) hypertension; M19.90 Unspecified osteoarthritis, unspecified site; Z85.89 Personal history of malignant neoplasm of other organs and systems; Z79.84 Long term (current) use of oral hypoglycemic drugs ==

== ENCOUNTER → 2020-06-10 | Outpatient (CLI) | payer OTHER ==
--- NOTE | 2020-06-10 14:58 | NUR ---
VASCULAR ACCESS CONSULTED TO REPLACE PICC DUE TO NOT FUNCTIONING, BUT WHEN REMOVING DRESSING, KINK NOTED AT INSERTION SITE. DRESSING ,STATLOCK AND BIOPATCH REPLACED. BRISK BR AND FLUSH. NO NEED TO REPLACE LINE.
--- NOTE | 2020-06-10 16:48 | NUR ---
IN FOR REPLACEMENT OF PICC LINE. PATIENT'S STATED HE COULD NOT FLUSH IT OR GET BLOOD RETURN SINCE HH NURSE CHANGED DRESSING YESTERDAY. IV TEAM NURSE ROSALVA FOUND KINK IN TUBING UNDER DRESSING. STRAIGHTENED OUT KINK AND WAS THEN ABLE TO FLUSH WITHOUT DIFFICULTY. NEW DRESSING APPLIED. DISMISSED IN STABLE CONDITION.
== END ==
LOC: OPONC 14:40
PROVIDERS: ATTEND Specialist
DX: S81.801A Unspecified open wound, right lower leg, initial encounter (principal); X58.XXXA Exposure to other specified factors, initial encounter; Y93.89 Activity, other specified; Y92.89 Other specified places as the place of occurrence of the external cause; Y99.8 Other external cause status
CPT/HCPCS: 91016

== ENCOUNTER 2020-06-16 14:27 | Emergency (ER) | payer OTHER ==
[~2020-06-16] VITALS: Ht 160 cm; Wt 113.4 kg
[2020-06-16 14:52] VITALS: BP 96/47
[2020-06-16 16:53] LABS: HEMATOCRIT 32.2 % (37.0-47.0); HEMOGLOBIN 10.3 gm/dL (12.0-15.0); MCH 27.5 pg (26.0-34.0); MCV 85.7 fL (80.0-100.0); PLATELET COUNT 192 thou/uL (150-400); RBC 3.75 mil/uL (4.20-5.00); WBC 7.8 thou/uL (4.0-11.0)
[2020-06-16 16:57] LABS: ANION GAP 5 mmol/L (7-16); BUN 64 mg/dL (7-18); CHLORIDE 101 mmol/L (98-107); CO2 33 mmol/L (21-32); CREATININE 1.6 mg/dL (0.6-1.0); GLUCOSE 85 mg/dL (74-106); POTASSIUM 4.4 mmol/L (3.5-5.1); SODIUM 139 mmol/L (136-145)
[2020-06-16 17:07] LABS: ALBUMIN 2.7 g/dL (3.4-5.0); MAGNESIUM 2.2 mg/dL (1.8-2.4); SGOT 36 U/L (15-37); SGPT 30 U/L (30-65); TOTAL BILIRUBIN 0.3 mg/dL (0.2-1.0); TOTAL PROTEIN 7.6 g/dL (6.4-8.2); TROPONIN-I <0.06 ng/mL (<0.06)
[2020-06-16 17:09] LABS: APTT 26.8 Seconds (24.5-32.8); D-DIMER 1.75 ug/mLFEU (0.19-0.50); INR 1.3; PROTIME 13.7 Seconds (9.3-11.4)
[2020-06-16 17:31] LABS: ABSOLUTE NEUTROPHILS 4.5 thou/uL (1.4-8.2); ANISOCYTOSIS 1+; PLATELET ESTIMATE NORMAL
[2020-06-16 18:47] LABS: BE(vivo) 4.9 mmol/L (-2 to +3); HCO3 31.3 mmol/L (22.0-26.0); PCO2 55.3 mmHg (35.0-45.0); sO2 98.8 % (92.0-98.0)
[2020-06-17 00:04] VITALS: BP 190/65
[2020-06-17 00:17] VITALS: BP 163/83
--- NOTE | 2020-06-17 09:29 | EKG ---
[facility] [place] [address] ELECTROCARDIOGRAM REPORT Name: CARLINE CURRY Room #: [facility]..#: [id number] Admission: 06/16/20 Attend Phys: Discharge: 06/17/20 Date of : 42 Report #: [id number] THIS REPORT FOR: cc: Eliseo Frank MD, Neal A. 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 : 1940 Requested By: Pao Ortiz Order Number: [id number] MD: Jaime Cintron Measurements Intervals [place] Rate: 88 P: 52 IN: 161 QRS: -28 QRSD: 90 T: -6 QT: 417 QTc: 505 Interpretive Statements Sinus rhythm Abnormal R-wave progression, late transition Borderline T abnormalities, diffuse leads Prolonged QT interval Inferior infarct, age indeterminate Compared to ECG 06/02/2020 13:37:09 Inferior Q waves are more prominent T-wave abnormality now present Prolonged QT interval now present Electronically Signed On 06-17-2020 9:28:52 CDT by Jaime Cintron [email or web address] <ELECTRONICALLY SIGNED> By: Jaime Cintron MD, [facility] 06/17/20 0928 1634 1634 Jaime Cintron MD, [facility] /EPI
== END 2020-06-17 00:06 | disposition short-term general hospital (02) ==
LOC: ER 14:27 → EROBS 19:35 → ER 19:35 → EROBS 19:35 → ER 06-17 00:06
PROVIDERS: Physician Assistant
DX: L03.114 Cellulitis of left upper limb (principal); Z20.828 Contact with and (suspected) exposure to other viral communicable diseases; L03.115 Cellulitis of right lower limb; R09.02 Hypoxemia; R06.00 Dyspnea, unspecified; I11.0 Hypertensive heart disease with heart failure; I50.9 Heart failure, unspecified; E11.9 Type 2 diabetes mellitus without complications; E03.9 Hypothyroidism, unspecified; K21.9 Gastro-esophageal reflux disease without esophagitis; E78.5 Hyperlipidemia, unspecified; Z79.899 Other long term (current) drug therapy; Z90.710 Acquired absence of both cervix and uterus; Z88.2 Allergy status to sulfonamides; Z88.8 Allergy status to other drugs, medicaments and biological substances; Z87.891 Personal history of nicotine dependence; Z79.4 Long term (current) use of insulin

== ENCOUNTER → 2020-06-26 | Outpatient (CLI) | payer OTHER | LOC: HYPER 08:58 | PROVIDERS: ATTEND Emergency Medicine | DX: E11.622 Type 2 diabetes mellitus with other skin ulcer (principal); L97.812 Non-pressure chronic ulcer of other part of right lower leg with fat layer exposed; L97.822 Non-pressure chronic ulcer of other part of left lower leg with fat layer exposed; E11.621 Type 2 diabetes mellitus with foot ulcer; L89.616 Pressure-induced deep tissue damage of right heel; L97.411 Non-pressure chronic ulcer of right heel and midfoot limited to breakdown of skin; I87.2 Venous insufficiency (chronic) (peripheral); L86 Keratoderma in diseases classified elsewhere; L88 Pyoderma gangrenosum; L84 Corns and callosities; E78.5 Hyperlipidemia, unspecified; I10 Essential (primary) hypertension; M19.90 Unspecified osteoarthritis, unspecified site; Z85.89 Personal history of malignant neoplasm of other organs and systems; Z79.84 Long term (current) use of oral hypoglycemic drugs; Z79.82 Long term (current) use of aspirin ==

== ENCOUNTER → 2020-07-07 | Outpatient (CLI) | payer OTHER | LOC: HYPER 13:11 | PROVIDERS: ATTEND Emergency Medicine | DX: E11.622 Type 2 diabetes mellitus with other skin ulcer (principal); L97.812 Non-pressure chronic ulcer of other part of right lower leg with fat layer exposed; L97.822 Non-pressure chronic ulcer of other part of left lower leg with fat layer exposed; E11.621 Type 2 diabetes mellitus with foot ulcer; L89.616 Pressure-induced deep tissue damage of right heel; L97.411 Non-pressure chronic ulcer of right heel and midfoot limited to breakdown of skin; L86 Keratoderma in diseases classified elsewhere; L88 Pyoderma gangrenosum; L84 Corns and callosities; E66.01 Morbid (severe) obesity due to excess calories; E78.5 Hyperlipidemia, unspecified; I87.2 Venous insufficiency (chronic) (peripheral); I10 Essential (primary) hypertension; K21.9 Gastro-esophageal reflux disease without esophagitis; M19.90 Unspecified osteoarthritis, unspecified site; Z68.41 Body mass index [BMI] 40.0-44.9, adult; Z85.89 Personal history of malignant neoplasm of other organs and systems; Z79.84 Long term (current) use of oral hypoglycemic drugs ==

== ENCOUNTER → 2020-07-21 | Outpatient (CLI) | payer OTHER | LOC: HYPER 13:33 | PROVIDERS: ATTEND Emergency Medicine | DX: E11.622 Type 2 diabetes mellitus with other skin ulcer (principal); L97.812 Non-pressure chronic ulcer of other part of right lower leg with fat layer exposed; L97.822 Non-pressure chronic ulcer of other part of left lower leg with fat layer exposed; E11.621 Type 2 diabetes mellitus with foot ulcer; L89.613 Pressure ulcer of right heel, stage 3; L97.411 Non-pressure chronic ulcer of right heel and midfoot limited to breakdown of skin; I87.2 Venous insufficiency (chronic) (peripheral); L86 Keratoderma in diseases classified elsewhere; L88 Pyoderma gangrenosum; L84 Corns and callosities; E78.5 Hyperlipidemia, unspecified; I10 Essential (primary) hypertension; M19.90 Unspecified osteoarthritis, unspecified site; Z85.89 Personal history of malignant neoplasm of other organs and systems; Z79.84 Long term (current) use of oral hypoglycemic drugs; Z79.82 Long term (current) use of aspirin ==

== ENCOUNTER → 2020-08-04 | Outpatient (CLI) | payer OTHER | LOC: HYPER 13:05 | PROVIDERS: ATTEND Emergency Medicine | DX: E11.622 Type 2 diabetes mellitus with other skin ulcer (principal); L97.812 Non-pressure chronic ulcer of other part of right lower leg with fat layer exposed; L97.825 Non-pressure chronic ulcer of other part of left lower leg with muscle involvement without evidence of necrosis; E11.621 Type 2 diabetes mellitus with foot ulcer; L89.613 Pressure ulcer of right heel, stage 3; L97.411 Non-pressure chronic ulcer of right heel and midfoot limited to breakdown of skin; L88 Pyoderma gangrenosum; L86 Keratoderma in diseases classified elsewhere; E66.01 Morbid (severe) obesity due to excess calories; E78.5 Hyperlipidemia, unspecified; I87.2 Venous insufficiency (chronic) (peripheral); I10 Essential (primary) hypertension; M19.90 Unspecified osteoarthritis, unspecified site; K21.9 Gastro-esophageal reflux disease without esophagitis; Z85.89 Personal history of malignant neoplasm of other organs and systems; Z79.84 Long term (current) use of oral hypoglycemic drugs; Z68.41 Body mass index [BMI] 40.0-44.9, adult ==

== ENCOUNTER → 2020-08-11 | Outpatient (CLI) | payer OTHER | LOC: HYPER 13:05 | PROVIDERS: ATTEND Emergency Medicine | DX: E11.622 Type 2 diabetes mellitus with other skin ulcer (principal); L97.812 Non-pressure chronic ulcer of other part of right lower leg with fat layer exposed; L97.826 Non-pressure chronic ulcer of other part of left lower leg with bone involvement without evidence of necrosis; E11.621 Type 2 diabetes mellitus with foot ulcer; L89.613 Pressure ulcer of right heel, stage 3; L97.411 Non-pressure chronic ulcer of right heel and midfoot limited to breakdown of skin; L86 Keratoderma in diseases classified elsewhere; L88 Pyoderma gangrenosum; L84 Corns and callosities; I87.2 Venous insufficiency (chronic) (peripheral); E66.01 Morbid (severe) obesity due to excess calories; E78.5 Hyperlipidemia, unspecified; I10 Essential (primary) hypertension; K21.9 Gastro-esophageal reflux disease without esophagitis; M19.90 Unspecified osteoarthritis, unspecified site; Z85.89 Personal history of malignant neoplasm of other organs and systems; Z79.84 Long term (current) use of oral hypoglycemic drugs; Z68.41 Body mass index [BMI] 40.0-44.9, adult ==

== ENCOUNTER 2020-08-26 11:19 | Inpatient (IN) | payer OTHER ==
[~2020-08-26] VITALS: Ht 160 cm; Wt 110.7 kg
--- NOTE | ~2020-08-26 | EMS ---
[address] [address] EMS Patient Care Report Name: CARLINE CURRY Room #: 354-P ADM IN M.R.#: [id number] Admission: 08/26/20 Attend Phys: Lily Gilbert MD Discharge: Date of : 42 Report #: [id number] THIS REPORT FOR: //name// Report Transmitted: 08/26/2020 20:00 EMS Care Summary [facility] MED-ACT Incident [id number] @ 08/26/2020 10:17 Incident Location [address] [place] [address] Patient CARLINE CURRY Female, 80 Years 1940 Patient Address [address] [place] [address] Patient History Congestive Heart Failure (CHF),Diabetes,Hypertension (HTN),Gastro-Esophageal Reflux Disease (GERD),Hypothyroidism, Patient Allergies Sulfa, Patient Medications Magnesium Oxide, Ropinirole, Synthroid, Glimepiride, Pantoprazole, Torsemide, Amlodipine, ASA, Gabapentin, Chief Complaint "She has a fever" Disposition Transported No Lights/[place] [facility] Reason Sick Person Transported To [facility] Narrative upon our arrival located pt ambulating with the aide of a walker towards EMS with S1157 and FD at her side. S1157 explained the pt reported having a fever [address] [address] EMS Patient Care Report Name: CARLINE CURRY Room #: 354-P ADM IN ..#: [id number] Admission: 08/26/20 Attend Phys: Lily Gilbert MD Discharge: Date of : 42 Report #: [id number] since 0900 today with subsequent generalized weakness that prompted her to summon [facility]. pt assisted to w/c and was wheeled to nearby EMS cot where she was secured in a POC with appropriate seatbelts applied. pt and pt's son who explained he was a primary caregiver for the pt denied any use of OTC medication in regards to the pt's fever. pt additionally c/o bilateral leg pain, which she confirmed is chronic secondary to previously diagnosed cellulitis. v/s obtained in EMS unit. stroke screen negative on exam. oxygen continued via NC. pt denied any AGUILA, visual changes, CP, dyspnea, dizziness or recent syncope when asked. 12 Lead EKG obtained. continuous monitoring en route. pt rested quietly during transport in [facility] without complaint. report called to ED without incident. upon arrival pt sheet lifted to ED bed 1 with rails upx2 and staff at her side. report given to ED RN without incident. Initial Vitals @10:37P: 113,SpO2: 70, @10:40P: 111,R: 24,BP: 128/67,Pain: 3/10,GCS: 14,Temp: 99.8F,Glucose: 130,EtCO2: 41,SpO2: 93,Revised Trauma: 12, @10:45P: 106,R: 22,GCS: 14,EtCO2: 49,SpO2: 94, @10:57P: 106,R: 22,BP: 136/68,GCS: 14,EtCO2: 44,SpO2: 95,Revised Trauma: 12, Assessments @10:34MENTAL:Confused,Person Oriented,Event Oriented,Place Oriented,SKIN:HEENT:Eyes: No Abnormalities,LUNG SOUNDS:ABDOMEN:PELVIS//GI:Incontinence,EXTREMITIES:Right Leg: Other,Right Leg: Edema,Left Leg: Edema,Left Leg: Other,PULSE:NEURO:Tremors, Impression Fever Procedures @10:4512-Lead ECGResponse: UnchangedSucceeded@10:40Surgical Mask on PatientResponse: Unchanged@PTAOxygen FlowRate: 4 Response: UnchangedSucceeded 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,Oxygen FlowRate: 4 Response: UnchangedSucceeded, 10:15,Call Received 10:15,Psap Call 10:17,Dispatched 10:17,En Route 10:28,On Scene 10:31,At Patient 10:37,BP: / M,PULSE: 113,RR: R,SPO2: 70 Ox,ETCO2: ,BG: ,PAIN: ,GCS: , 10:40,Surgical Mask on Patient,Response: Unchanged 10:40,BP: 128/67 M,PULSE: 111,RR: 24 R,SPO2: 93 Ox,ETCO2: 41 ,B,PAIN: 3,GCS: 14, 10:44,Depart Scene [address] [place] [address] EMS Patient Care Report Name: CARLINE CURRY Room #: 354-P [facility] IN M.R.#: [id number] Admission: 08/26/20 Attend Phys: Lily Gilbert MD Discharge: Date of : 44 Report #: [id number] 10:45,12-Lead ECG,Response: UnchangedSucceeded, 10:45,BP: / M,PULSE: 106,RR: 22 R,SPO2: 94 Ox,ETCO2: 49 ,BG: ,PAIN: ,GCS: 14, 10:57,BP: 136/68 M,PULSE: 106,RR: 22 R,SPO2: 95 Ox,ETCO2: 44 ,BG: ,PAIN: ,GCS: 14, 11:13,At Destination 11:35,Call Closed Disclaimer v1.1 Copyright 2020 [employer] This EMS Care Summary contains data elements from the applicable legal record (which may be displayed differently). It is designed to provide pertinent information for the following purposes: continuity of care, clinical quality, and state data reporting. The complete legal record is available to ED staff and administrators of the receiving hospital in [facility]'s Patient Tracker. All data is provided "as is."
--- NOTE | ~2020-08-26 | EMS ---
[address] [address] EMS Patient Care Report Name: CARLINE CURRY Room #: PRE M.R.#: [id number] Admission: Attend Phys: Discharge: Date of : 44 Report #: [id number] THIS REPORT FOR: //name// Report Transmitted: 08/26/2020 11:10 EMS Care Summary [facility] MED-ACT Incident [id number] @ 08/26/2020 10:17 Incident Location [address] [place] [address] Patient CARLINE CURRY Female, 80 Years 1940 Patient Address [address] [place] [address] Patient History Congestive Heart Failure (CHF),Diabetes,Hypertension (HTN),Gastro-Esophageal Reflux Disease (GERD),Hypothyroidism, Patient Allergies Sulfa, Patient Medications Magnesium Oxide, Ropinirole, Synthroid, Glimepiride, Pantoprazole, Torsemide, Amlodipine, ASA, Gabapentin, Chief Complaint "She has a fever" Disposition Transported No Lights/[place] Dispatch Reason Sick Person Transported To [facility] Narrative upon our arrival located pt ambulating with the aide of a walker towards EMS with S1157 and FD at her side. S1157 explained the pt reported having a fever [address] [address] EMS Patient Care Report Name: CARLINE CURRY Room #: PRE Kathi.#: [id number] Admission: Attend Phys: Discharge: Date of : 44 Report #: [id number] since 899 today with subsequent generalized weakness that prompted her to summon 911. pt assisted to w/c and was wheeled to nearby EMS cot where she was secured in a POC with appropriate seatbelts applied. pt and pt's son who explained he was a primary caregiver for the pt denied any use of OTC medication in regards to the pt's fever. pt additionally c/o bilateral leg pain, which she confirmed is chronic secondary to previously diagnosed cellulitis. v/s obtained in EMS unit. stroke screen negative on exam. oxygen continued via NC. pt denied any AGUILA, visual changes, CP, dyspnea, dizziness or recent syncope when asked. 02/16 Lead EKG obtained. continuous monitoring en route. pt rested quietly during transport in [facility] without complaint. report called to ED without incident. upon arrival pt sheet lifted to ED bed 1 with rails upx2 and staff at her side. report given to ED RN without incident. Initial Vitals @10:37P: 113,SpO2: 70, @10:40P: 111,R: 24,BP: 128/67,Pain: 3/10,GCS: 14,Temp: 99.8F,Glucose: 130,EtCO2: 41,SpO2: 93,Revised Trauma: 12, @10:45P: 106,R: 22,GCS: 14,EtCO2: 49,SpO2: 94, @10:57P: 106,R: 22,BP: 136/68,GCS: 14,EtCO2: 44,SpO2: 95,Revised Trauma: 12, Assessments @10:34MENTAL:Confused,Person Oriented,Event Oriented,Place Oriented,SKIN:HEENT:Eyes: No Abnormalities,LUNG SOUNDS:ABDOMEN:PELVIS//GI:Incontinence,EXTREMITIES:Right Leg: Other,Right Leg: Edema,Left Leg: Edema,Left Leg: Other,PULSE:NEURO:Tremors, Impression Generalized Weakness Procedures @10:4512-Lead ECGResponse: UnchangedSucceeded@10:40Surgical Mask on PatientResponse: Unchanged@PTAOxygen FlowRate: 4 Response: UnchangedSucceeded Timeline FUR SCRAPER,Oxygen FlowRate: 4 Response: UnchangedSucceeded, 10:15,Call Received 10:15,Psap Call 10:17,Dispatched 10:17,En Route 10:28,On Scene 10:31,At Patient 10:37,BP: / M,PULSE: 113,RR: R,SPO2: 70 Ox,ETCO2: ,BG: ,PAIN: ,GCS: , 10:40,Surgical Mask on Patient,Response: Unchanged 10:40,BP: 128/67 M,PULSE: 111,RR: 24 R,SPO2: 93 Ox,ETCO2: 41 ,B,PAIN: 3,GCS: 14, 10:44,Depart Scene [facility] [address] [place] [address] EMS Patient Care Report Name: CARLINE CURRY Ubaldo Room #: PRE M.R.#: [id number] Admission: Attend Phys: Discharge: Date of : 44 Report #: [id number] 10:45,12-Lead ECG,Response: UnchangedSucceeded, 10:45,BP: / M,PULSE: 106,RR: 22 R,SPO2: 94 Ox,ETCO2: 49 ,BG: ,PAIN: ,GCS: 14, 10:57,BP: 136/68 M,PULSE: 106,RR: 22 R,SPO2: 95 Ox,ETCO2: 44 ,BG: ,PAIN: ,GCS: 14, 11:13,At Destination 11:35,Call Closed Disclaimer v1.1 Copyright 2020 [employer] This EMS Care Summary contains data elements from the applicable legal record (which may be displayed differently). It is designed to provide pertinent information for the following purposes: continuity of care, clinical quality, and state data reporting. The complete legal record is available to ED staff and administrators of the receiving hospital in [employer]'s Patient Tracker. All data is provided "as is."
[2020-08-26 11:21] VITALS: BP 138/63
[2020-08-26 11:40] LABS: HEMATOCRIT 28.5 % (37.0-47.0); HEMOGLOBIN 8.8 gm/dL (12.0-15.0); MCH 25.4 pg (26.0-34.0); MCHC 30.9 g/dL (28.0-37.0); MCV 82.3 fL (80.0-100.0); PLATELET COUNT 309 thou/uL (150-400); RBC 3.46 mil/uL (4.20-5.00); RDW 17.1 % (10.5-14.5); WBC 11.2 thou/uL (4.0-11.0)
[2020-08-26] MEDS ORDERED: OXYCODONE HCL10 MG PO ×2 (11:41)
[2020-08-26 11:54] LABS: CALCIUM 8.3 mg/dL (8.5-10.1); CREATININE 1.4 mg/dL (0.6-1.0); POTASSIUM 4.2 mmol/L (3.5-5.1)
[2020-08-26 11:56] LABS: ALBUMIN 2.3 g/dL (3.4-5.0); TOTAL BILIRUBIN 0.4 mg/dL (0.2-1.0); TOTAL PROTEIN 7.5 g/dL (6.4-8.2)
[2020-08-26 12:20] LABS: ABSOLUTE NEUTROPHILS 8.3 thou/uL (1.4-8.2)
[2020-08-26 12:22] LABS: ANISOCYTOSIS SLIGHT
[2020-08-26 12:23] LABS: HYPOCHROMASIA SLIGHT; POIKILOCYTOSIS SLIGHT
[2020-08-26 13:04] VITALS: BP 150/75
--- NOTE | 2020-08-26 13:10 | NUR ---
SPOKE WITH [facility] ([facility]) UPDATED ON PT. STATUS. HE STATES OPT. ALSO HAS AREA OF REDNESS UNDER PANNUS THAT IS TREATED WITH TALCOM POWDER AND SURE-DRY SHEETS. WILL INFORM PROVIDER. ADVISED I WILL INFORM PT OF CALL AND UPDATE SON NEW DEVELOPMENTS OCCUR
--- NOTE | 2020-08-26 13:23 | NUR ---
CALLED TO GIVE REPORT ON PT. WAS TOLD "PT IS NOT IN COMPUTER, WE HAVENT GOTTEN THE ED SHEET, AND THE NURSE ISNT AVAILABLE", I CHALLENGED THE COMEBACK AND SHE STATED "WELL WE DO HAVE THE ED SHEET, BUT WES IS BUSY AND SHE WILL HAVE TO CALL YOU BACK" AND HUNG UP ABRUPTLY
[2020-08-26 13:42] VITALS: BP 142/77
[2020-08-26 14:24] VITALS: BP 143/65
[2020-08-26 18:29] LABS: URINE BILIRUBIN NEGATIVE (Negative); URINE BLOOD NEGATIVE (Negative); URINE CLARITY CLEAR; URINE COLOR YELLOW; URINE GLUCOSE-RANDOM* NEGATIVE (Negative); URINE KETONES NEGATIVE (Negative); URINE LEUKOCYTES-REFLEX NEGATIVE (Negative); URINE NITRITE-REFLEX NEGATIVE (Negative); URINE PROTEIN (DIPSTICK) 2+ (Negative); URINE SPECIFIC GRAVITY 1.015 (1.005-1.035); URINE UROBILINOGEN 0.2 E.U./dl (0.2-1.0)
[2020-08-26 18:39] LABS: SQUAMOUS 0-3 Few /LPF (0-3)
[2020-08-26 18:42] LABS: URINE RBC 0-2 Rare /HPF (0-2); URINE WBC-REFLEX None Seen /HPF (0-5)
[2020-08-26 18:43] LABS: BACTERIA-REFLEX 1-9 Few /HPF (None Seen); CRYSTALS None Seen /LPF (None Seen)
--- NOTE | 2020-08-26 19:24 | NUR ---
PT ADMITTED FROM ER ABOUT 1430PM, PT IS A&OX3, PT'S VS ARE STABLE, PT STARTS IV ABX AND BLE WUOND CARE AND PAIN MANAGEMENT. PT GETS UP TO USE BSC WITH ASSIST, PT'S COVID PCR TEST IS PENDING .
[2020-08-26 20:12] VITALS: BP 149/80
[2020-08-27] VITALS (7 sets, daily range): BP systolic 125–147; BP diastolic 56–74
--- NOTE | 2020-08-27 06:24 | NUR ---
ASSESSMENTS CHARTED, MEDS CHARTED GIVEN. PATIENT TRANSFERED FROM 3W IN HER BED. PLACED ON TELEMETRY. SINUS RHYTHM, 3 LITERS NC. UP TO BSC ASSIST X 2. BLE WEEPING DRESSED. FALL PRECAUTIONS IN PLACE DURING SHIFT.LEGS STILL NEED TO BE CULTURED. ON ANTIBIOTIC THERAPY.
[2020-08-27 08:33] LABS: CALCIUM 7.7 mg/dL (8.5-10.1); CREATININE 1.3 mg/dL (0.6-1.0); POTASSIUM 3.4 mmol/L (3.5-5.1)
--- NOTE | 2020-08-27 12:22 | NUR ---
Case opened to follow for dc planning. Certified Art Therapist visited with the pt and her son Keyur at bedside. Contact info verified. The pt reports she lives with Keyur and does not have any steps in the home. She has home o2 per [employer] at 2-3 liters baseline. She had HH services, ocular care technologist and therapies,with [facility] prior to admission. She has used them for 3years and would like to resume with the at ar. Pt's son concerned about her increased weakness and reports that she had a SNF stay at [facility] 2 years ago and they may be interested in doing that again if she needs rehab. Will ask for therapy evals. Referral called to [facility] admission liason. Dc management planner to fax update to [facility] for resumption at ar and snf referral to [facility] as a plan B. Dc timeframe is uncertain. Pt is on iv atb for cellulitis. Wound care consulted. She does utilize the wound clinic here as an outpt. Her pcp is Dr. Frank. She is covid negative. CM role introduced. Will follow for resumption of HH services or SNF at ar.
--- NOTE | 2020-08-27 13:54 | NUR ---
PT DISCHARGING TODAY TO [facility] SK[facility] STAY FAXED DC ORDERS/SUMMARY RECEIVED CONFIRMATION AND LEFT MSG WITH CHASIDY IN ADM. TRANSPORT ARRANGED BY [facility] FOR 1300 TODAY. FAMILY NOTIFIED BY KOJO WILSON) OF DC AND TIME OF TRANSPORT. UNIT NOTIFIED AND CHART COPY PER US. RN TO CALL REPORT TO [phone].
--- NOTE | 2020-08-27 16:22 | NUR ---
PT ON SERVICE WITH [facility] SPOKE WITH JOVAN IN INTAKE THEY CAN RESUME HH AT [facility] IF NEEDED. JUST IN CASE PT NEEDS SKILLED STAY FAXED REFERRAL TO [facility] SPOKE WITH SHREYAS IN ADM SHE RECEIVED REFERRAL AND WILL ACCEPT AT [facility].
--- NOTE | 2020-08-27 17:33 | NUR ---
RECEIVED PT'S CARE AROUND 0720; PT. ON BED; ALERT; DR. HERZOG ROUNDING ON FLOOR & NOTICED PT. ADMITED; ST. BEING HIS REGULAR FAMILY PHYSICIAN; DR. HAMM NOTIFIED; CARE TRANSFER TO DR. HERZOG; TAILER OFF NOTIFIED; PT. C/O PAIN OVER BLE DURING AM ASSESSMENT; PRN PAIN MEDICATION UPDATED; PRN PAIN & SCHEDULED MEDICATION GIVEN DURING AM; EDUCATED ABOUT PAIN MANAGEMENT; ST. UNDERSTANDING; MEDICATION LIST UPDATED; REQUESTED GABAPENTIN 600 MG TID; DR. HERZOG NOTIFIED; ORDERS RECEIVED; PAIN RE-ASSESSMENT PT. ST. DECREASE PAIN; PER DR. EDWAR CONNER LEGS ELEVATED ABOVE HIP MUCH PT. TOLERATED; WOVEN LABEL DESIGNER ST. UNDERSTANDING; CULTURES OBTAINED DURING WOUND CARE; SENT TO LAB; WOUND CARE PERFORMED; DR. GARCIA UPDATED ABOUT OOZING; NO NEW ORDERS; SR ON THE MONITOR; SON UPATED ABOUT PT'S HEALTH; ST. UNDERSTANDING; ASSESSMENT CHARGED; FOLLOWING POC; WILL PASS ON REPORT;
[2020-08-28 03:52] VITALS: BP 132/60
--- NOTE | 2020-08-28 04:38 | NUR ---
ASSUMED CARE FROM PREVIOUS SHIFT, PT RESTING IN BED STATES SHE IS COMFORTABLE AT THIS TIME, REFUSED DRESSING CHANGE THIS EVENING , LEG ELEVATED ORDERD. NEW PLACED IN LEFT FOREARM. SERVICE REPRESENTATIVE SHOWS NSR. RESTING WELL THROUHGUT HOURLY ROUNDS WILL CONINTUE WITH CURRENT PLAN OF CARE.
[2020-08-28 08:00] VITALS: BP 137/76
[2020-08-28 11:20] VITALS: BP 132/72
--- NOTE | 2020-08-28 13:14 | NUR ---
FAXED PT/OT NOTES TO [facility] RECEIVED CONFIRMATION.
[2020-08-28 15:40] VITALS: BP 72/50
--- NOTE | 2020-08-28 16:33 | NUR ---
Met and sp with patient regarding dc planning. Patient reports she will go home at dc and her son can assist her. Discussed she has been [facility] [place] and patient reports she does not believe she needs at this time.
--- NOTE | 2020-08-28 17:48 | NUR ---
ASSUMED CARE AT CHANGE OF SHIFT. ALERT X4, PAIN MANAGED WITH MEDICATIONS. UP WITH AX1 TO COMMODE. BM TODAY. DRESSING CHANGED PER ORDER. ENCOURAGE ELEVATION LE. PT STATUS CHANGED TO MEDSURG. PT AWARE SHE WILL MOVE TO 4TH FLOOR. PERSONAL ITEMS AND CALL LIGHT IN REACH.
[2020-08-28 19:57] VITALS: BP 144/70
[2020-08-28 21:03] VITALS: BP 147/73
--- NOTE | 2020-08-28 22:14 | NUR ---
ASSUMED CARE FROM DAY SHIFT PT ALERT ORIENTED X4 , DENIOES PAIN OR SOA AT THIS TIME, PT TO BE TRANSFERED TO ROOM 453.PT STABLE UPON ARRIVAL TO UNIT.
[2020-08-29 07:23] VITALS: BP 135/67
--- NOTE | 2020-08-29 08:36 | NUR ---
Assumed care of patient @ 2100 on 08/28/20, patient transferred from to RM 453 on 4West. A&Ox4, pleasant affect noted. Oxygen running @ 2L via N/C. S1S2 noted, Lung sounds present bilat, ABD sounds auscultated x4Q. Reports BM today on 08/28. Uses BSC to toilet. Able to stand and bear weight, able to pivot and sit on toilet. Set up and clean up help, and help with oxygen tubing and IV tubing. X2 IV antibiotics provided, tolerated well. Acucheck noted at 199, 25 U Glargine and 3U of Lispro S/S provided. After returning to bed from toileting, Complained of lower extremity pain, [place] 10/325 provided for 6/10 pain, follow up assessment noted to be sleeping. Bed in low position, bed alarm set. Awakens frequently when nursing staff given IV antibiotic care.
[2020-08-29 08:46] VITALS: BP 135/67
[2020-08-29 13:46] VITALS: BP 135/72
--- NOTE | 2020-08-29 13:46 | NUR ---
CARE TEAM INDICATED THAT PT IS PROGRESSING TOWARD GOAL OF DISCHARGING HOME. PT CONTINUES ON IV VANC AND ZOSYN. PT AND SON HAVE INDICATED THAT THEY WOULD PREFER FOR PT TO DISCHARGE HOME ONCE MEDICALLY STABLE AND RESUME HOME HEALTH SERVICES WITH [facility]. DR. HERZOG AND THERAPY TEAM INDICATED THAT THAT IS APPROPRIATE. DR. HERZOG, PT, AND SON ARE AWARE OR ANTICIPATED DISHCARGE HOME TOMORROW Tuesday08/30/20. [facility] HAS BEEN NOTIFIED OF ANTICIPATED DC WELL. FINAL ORDERS WILL NEED TO BE FAXED TO THE NUMBER LISTED BELOW. SON TO [facility] TRANSPORT HOME TOMORROW. PT HAS ALL RECOMMENDED DME. [facility] P: F:
--- NOTE | 2020-08-29 18:36 | NUR ---
A/O, calm and pleasant, dressing changed.
[2020-08-29 19:32] VITALS: BP 131/62
--- NOTE | 2020-08-30 04:12 | NUR ---
Pt. rested quietly at intervals during the night when checked on during frequewnt rounds. She did c/o bilateral leg pain and po pain med given (see emar) with some relief noted. Lower extremity dressing are intact with legs elevated when in bed. She has been ambulating to the bathroom with walker and stand by assistance. Bed alarm is on.
[2020-08-30 08:10] VITALS: BP 155/76
[2020-08-30 15:51] VITALS: BP 146/76
--- NOTE | 2020-08-30 19:50 | NUR ---
Assumed pt care this am, VS stable. stayed on the chair for most of the shift. able to ambulate with a steady gait to the toilet. 2L of O2 via NC maintained. Legs elevated, accu checks done, medications given as per emar. POC followed pain is managed with medications. Wound care and dressing cchange requested to be done before bedtime. Endorsed to the night nurse.
[2020-08-30 22:53] VITALS: BP 144/79
--- NOTE | 2020-08-31 02:29 | NUR ---
ASSUMED PT CARE AT 1915. PT IS A&O X4. VSS. PT IS ON 2L NASAL CANULA. PT DOES GET UP AND USE THE RESTROOM BUT HAS STRESS INCONTINENCE. PT VOICES THAT SHE HAS PAIN AT A LEVEL 8. I ADMINISTERED HYDROCODONE FOR PAIN. PT STATES THAT SHE IS IN PAIN AT 6 AND I ADMINISITERED TYLENOL. PT TAKES MEDS WHOLE. I DID THE DRESSING CHANGE TO HER BLE. PT IS ASLEEP IN HER ROOM. I WILL CONTINUE TO MONITOR.
[2020-08-31 07:26] VITALS: BP 147/69
--- NOTE | 2020-08-31 18:42 | NUR ---
Assumed care of pt. at 0700. Patient is calm and cooperative. Pt. had BG tested to 44 at 0751. Protocol was followed (8oz of juice given), Dr. Frank notified, no orders given. BG was tested again at 0830 to be 61, protocol followed (16 oz of juice given). BG remeasured at 0904 to be 100. Pt. requested pain medicine throughout the day at appropriate times. Fall precautions in place.
[2020-08-31 20:38] VITALS: BP 160/82
[2020-08-31 20:46] VITALS: BP 158/82
--- NOTE | 2020-09-01 04:27 | NUR ---
PATIENT ALERT AND ORIENTED X4. MEDICATED FOR BILATERAL LOWER LEG PAIN DUE TO CELLULITIS. DRESSINGS DRY AND INTACT. REMAINS ON TELE NSR. BS AC/HS 160 AT 2100 AND GIVEN INSULIN PER ORDER. 2LNC WITH NO SOA NOTED. UP TO VOID WITH ASSIST OF ONE. WILL MONITOR.
--- NOTE | 2020-09-01 05:19 | NUR ---
THIS NURSE CHECKED PATIENTS BS THIS AM DUE TO HER BS BEING LOW IN THE AM PREVIOUSLY. BS WAS 94 AND PATIENT IS ALERT AND ORIENTED X4. COOPERATIVE WITH CARE. SLEPT WELL DURING THE NIGHT. WILL MONITOR.
[2020-09-01 07:26] VITALS: BP 150/76
[2020-09-01] MEDS ORDERED: CEFUROXIME250 MG PO ×2 (07:31)
[2020-09-01] MEDS ORDERED: LINEZOLID600 MG PO ×2 (07:32)
[2020-09-01 08:54] VITALS: BP 150/76
--- NOTE | 2020-09-01 12:39 | NUR ---
WOUND CONSULT; THE SACRAL AREAS IS HEALED PER RN NOTE. THE WOUND PICTURE IS CONSISTANT WITH NOTE,THE WOUND IS HEALED. THERE IS NO NEED TO FOLLOW THIS PATIENT FOR WOUND CARE AT THIS TIME RECONSULT IF NEEDED. RECOMMENDATIONS; APPLY ZGUARD DAILY/PRN FOR PREVENTION ONLY. DISCUSSED WITH RN
--- NOTE | 2020-09-01 13:54 | NUR ---
Assumed pt care this am, VS stable gait is steady and able to ambulate from bed to the toilet with a walker. ON 2l of O2 via NC. Wound care and dressing change done, son at the bedside. POC followed, pain managed with medications, partial relief is noted. DC instructions and prescriptions given to the son and pt, IV rmeoved. Pt is now dc went home with the son.
--- NOTE | 2020-09-01 14:22 | NUR ---
CARE TEAM INDICATED THAT PT IS MEDICALLY STABLE TO DISCHARGE HOME THIS DAY. FINAL ORDERS FAXED TO [facility]. PT'S SON TO PROVIDE TRANSPORT HOME. NO OTHER CM INTERVENTION INDICATED. CASE CLOSED.
--- NOTE | 2020-09-01 15:08 | NUR ---
FAXED DC ORDERS/SUMMARY TO [facility] RECEIVED CONFIRMATION THEY WILL NOTIFY PT TO ARRANGE VISITS.
--- NOTE | 2020-09-04 18:31 | HC ---
[facility] [place] [address] [address] CONSULTATION Name: CARLINE CURRY Room #: 453-P [facility] IN M.R.#: [id number] Admission: 08/26/20 Attend Phys: Eliseo Frank MD Discharge: 09/01/20 Date of : 44 Report #: [id number] THIS REPORT FOR: cc: Eliseo Frank MD, Neal A. MD Althoff, Jeffrey R. MD ~ DATE OF SERVICE: 08/26/2020 CHIEF COMPLAINT: Bilateral lower extremity cellulitis. 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 She has been followed by Dr. Deleon in the wound clinic for quite some time. She has been slowly improving; however, presented with increasing redness, swelling and drainage, felt to be cellulitic and was admitted to the hospital. The patient has some pain. Denies fever, chills and complaining of some fatigue. PAST MEDICAL HISTORY: Positive for chronic ulcerations, bilateral lower extremities; venous stasis dermatitis; pyoderma gangrinosum; congestive heart failure; hypothyroidism; hyperlipidemia; hypertension. MEDICATIONS: Include oxycodone, Amaryl, Mag-Ox, Requip, Protonix, Synthroid, aspirin, Duragesic, Norvasc, nortriptyline, Demadex, Neurontin, fentanyl patch. ALLERGIES: SULFA AND CYCLOSPORINE. FAMILY HISTORY: Noncontributory. SOCIAL HISTORY: She has never been a smoker. She does drink 2-3 glasses of wine per day. REVIEW OF SYSTEMS: CONSTITUTIONAL: The patient denies fever, chills or weight loss. NEUROLOGICAL: The patient denies focal weakness, numbness or tingling. EYES: The patient denies visual changes, redness, or drainage. ENT: The patient denies earache, nasal drainage, sore throat. CARDIOVASCULAR: The patient denies chest pain, palpitations or diaphoresis. PULMONARY: The patient denies cough or shortness of breath. GASTROINTESTINAL: The patient denies nausea, vomiting, diarrhea or abdominal pain. ORTHOPEDIC: The patient denies pain, swelling, redness or ulcerations to bilateral lower extremities. Other systems in a 14-point review of systems are negative. [address] [address] CONSULTATION Name: CARLINE CURRY Room #: 453-P [facility] IN ..#: [id number] Admission: 08/26/20 Attend Phys: lEiseo Frank MD Discharge: 09/01/20 Date of : 44 Report #: [id number] PHYSICAL EXAMINATION: VITAL SIGNS: At this time include temperature 37.3, pulse 94, respiratory rate 18, blood pressure 143/65. GENERAL: This is a chronically ill-appearing female patient who appears to be in minimal stress. HEENT: Head normocephalic. Nose and throat are clear. NECK: Supple. LUNGS: Clear. HEART: Regular. ABDOMEN: Bowel sounds present. EXTREMITIES: Lower extremities demonstrate ulcerations to both lower legs and ankles. Significant surrounding erythema, moderate slough in the wound base is tenderness and some drainage, minimal odor noted at this time. NEUROLOGIC: The patient is alert, oriented and appropriate. LABORATORY DATA: Include sodium 140, potassium 4.2, chloride 101, CO2 of 33, BUN 32, creatinine 1.4, glucose 129. Albumin is low at 2.3. White blood cell count 12.2 with a hemoglobin of 8.8. CLINICAL IMPRESSION: 1. Chronic ulcerations, bilateral lower extremity with underlying pyoderma gangrenosum with wound infection. 2. Cellulitis, bilateral lower extremities. 3. Venous dermatitis. 4. Diabetes with hyperglycemia. RECOMMENDATIONS: At this point in time, the patient will be started with antibiotic therapy. We recommend quarter strength Dakin's moist gauze, ABD, Kerlix and Da wraps daily. We will recommend elevation of the foot of the bed. Aggressive nutritional support, ID will see her, continuation of current medical management. I appreciate being asked to see her in consultation. <ELECTRONICALLY SIGNED> By: Maxim Freire MD 09/04/20 1831 [id number] Maxim Frerie MD /nt
== END 2020-09-01 13:45 | disposition home health service (06) | DRG 871 ==
LOC: ER 11:19 → 3W 14:11 → 2N 14:11 → 3W 14:11 → 2N 08-27 00:31 → 4W 08-28 20:53
PROVIDERS: Hospitalist; Physician Assistant; ADMIT Family Medicine; ATTEND Family Medicine
DX: A41.9 Sepsis, unspecified organism (principal); E43 Unspecified severe protein-calorie malnutrition; L03.116 Cellulitis of left lower limb; N17.9 Acute kidney failure, unspecified; Z68.41 Body mass index [BMI] 40.0-44.9, adult; J96.11 Chronic respiratory failure with hypoxia; L97.929 Non-pressure chronic ulcer of unspecified part of left lower leg with unspecified severity; L97.919 Non-pressure chronic ulcer of unspecified part of right lower leg with unspecified severity; L88 Pyoderma gangrenosum; I13.0 Hypertensive heart and chronic kidney disease with heart failure and stage 1 through stage 4 chronic kidney disease, or unspecified chronic kidney disease; L03.115 Cellulitis of right lower limb; I50.9 Heart failure, unspecified; Z96.641 Presence of right artificial hip joint; I87.2 Venous insufficiency (chronic) (peripheral); K21.9 Gastro-esophageal reflux disease without esophagitis; N18.9 Chronic kidney disease, unspecified; D53.9 Nutritional anemia, unspecified; E11.65 Type 2 diabetes mellitus with hyperglycemia; G47.33 Obstructive sleep apnea (adult) (pediatric); D63.8 Anemia in other chronic diseases classified elsewhere; E78.5 Hyperlipidemia, unspecified; E03.9 Hypothyroidism, unspecified; G25.81 Restless legs syndrome; Z20.828 Contact with and (suspected) exposure to other viral communicable diseases; Z79.899 Other long term (current) drug therapy; Z79.82 Long term (current) use of aspirin; Z90.710 Acquired absence of both cervix and uterus; Z79.4 Long term (current) use of insulin; Z79.891 Long term (current) use of opiate analgesic; Z88.1 Allergy status to other antibiotic agents; Z88.2 Allergy status to sulfonamides; Z87.891 Personal history of nicotine dependence
CPT/HCPCS: 10045; 10081; 10879

== ENCOUNTER → 2020-09-08 | Outpatient (CLI) | payer OTHER ==
[~2020-09-08] MED LIST changes: +CEFUROXIME250 MG PO; +OXYCODONE HCL10 MG PO
== END ==
LOC: HYPER 08:28
PROVIDERS: ATTEND Emergency Medicine
DX: E11.622 Type 2 diabetes mellitus with other skin ulcer (principal); L97.812 Non-pressure chronic ulcer of other part of right lower leg with fat layer exposed; L97.825 Non-pressure chronic ulcer of other part of left lower leg with muscle involvement without evidence of necrosis; E11.621 Type 2 diabetes mellitus with foot ulcer; L89.613 Pressure ulcer of right heel, stage 3; L97.411 Non-pressure chronic ulcer of right heel and midfoot limited to breakdown of skin; L88 Pyoderma gangrenosum; L86 Keratoderma in diseases classified elsewhere; L84 Corns and callosities; I87.2 Venous insufficiency (chronic) (peripheral); R60.0 Localized edema; E66.01 Morbid (severe) obesity due to excess calories; E78.5 Hyperlipidemia, unspecified; I10 Essential (primary) hypertension; K21.9 Gastro-esophageal reflux disease without esophagitis; M19.90 Unspecified osteoarthritis, unspecified site; Z79.84 Long term (current) use of oral hypoglycemic drugs; Z85.89 Personal history of malignant neoplasm of other organs and systems; Z68.41 Body mass index [BMI] 40.0-44.9, adult

== ENCOUNTER → 2020-09-08 | Outpatient (CLI) | payer OTHER | LOC: SJCVC 09:51 | PROVIDERS: ATTEND Internal Medicine | DX: R94.31 Abnormal electrocardiogram [ECG] [EKG] (principal); I11.0 Hypertensive heart disease with heart failure; I50.9 Heart failure, unspecified; Z79.899 Other long term (current) drug therapy ==

== ENCOUNTER → 2020-11-20 | Outpatient (CLI) | payer OTHER | LOC: HYPER 13:17 | PROVIDERS: ATTEND Emergency Medicine | DX: E11.622 Type 2 diabetes mellitus with other skin ulcer (principal); L97.812 Non-pressure chronic ulcer of other part of right lower leg with fat layer exposed; L97.825 Non-pressure chronic ulcer of other part of left lower leg with muscle involvement without evidence of necrosis; E11.621 Type 2 diabetes mellitus with foot ulcer; L89.613 Pressure ulcer of right heel, stage 3; L97.411 Non-pressure chronic ulcer of right heel and midfoot limited to breakdown of skin; L88 Pyoderma gangrenosum; L86 Keratoderma in diseases classified elsewhere; L84 Corns and callosities; I87.2 Venous insufficiency (chronic) (peripheral); R60.0 Localized edema; E66.01 Morbid (severe) obesity due to excess calories; E78.5 Hyperlipidemia, unspecified; I10 Essential (primary) hypertension; K21.9 Gastro-esophageal reflux disease without esophagitis; M19.90 Unspecified osteoarthritis, unspecified site; Z79.84 Long term (current) use of oral hypoglycemic drugs; Z85.89 Personal history of malignant neoplasm of other organs and systems; Z68.41 Body mass index [BMI] 40.0-44.9, adult ==

== ENCOUNTER → 2020-12-11 | Outpatient (CLI) | payer OTHER | LOC: HYPER 09:59 | PROVIDERS: ATTEND Emergency Medicine | DX: E11.622 Type 2 diabetes mellitus with other skin ulcer (principal); L97.812 Non-pressure chronic ulcer of other part of right lower leg with fat layer exposed; L97.825 Non-pressure chronic ulcer of other part of left lower leg with muscle involvement without evidence of necrosis; E11.621 Type 2 diabetes mellitus with foot ulcer; L89.613 Pressure ulcer of right heel, stage 3; L97.411 Non-pressure chronic ulcer of right heel and midfoot limited to breakdown of skin; L88 Pyoderma gangrenosum; L86 Keratoderma in diseases classified elsewhere; L84 Corns and callosities; I87.2 Venous insufficiency (chronic) (peripheral); R60.0 Localized edema; E66.01 Morbid (severe) obesity due to excess calories; E78.5 Hyperlipidemia, unspecified; I10 Essential (primary) hypertension; K21.9 Gastro-esophageal reflux disease without esophagitis; M19.90 Unspecified osteoarthritis, unspecified site; Z79.84 Long term (current) use of oral hypoglycemic drugs; Z85.89 Personal history of malignant neoplasm of other organs and systems; Z68.41 Body mass index [BMI] 40.0-44.9, adult ==

== ENCOUNTER → 2021-01-05 | Outpatient (CLI) | payer OTHER | LOC: HYPER 12:24 | PROVIDERS: ATTEND Emergency Medicine | DX: E11.621 Type 2 diabetes mellitus with foot ulcer (principal); L89.613 Pressure ulcer of right heel, stage 3; L97.411 Non-pressure chronic ulcer of right heel and midfoot limited to breakdown of skin; E11.622 Type 2 diabetes mellitus with other skin ulcer; L97.812 Non-pressure chronic ulcer of other part of right lower leg with fat layer exposed; L97.825 Non-pressure chronic ulcer of other part of left lower leg with muscle involvement without evidence of necrosis; L88 Pyoderma gangrenosum; L86 Keratoderma in diseases classified elsewhere; L84 Corns and callosities; I87.2 Venous insufficiency (chronic) (peripheral); R60.0 Localized edema; E66.01 Morbid (severe) obesity due to excess calories; E78.5 Hyperlipidemia, unspecified; I10 Essential (primary) hypertension; K21.9 Gastro-esophageal reflux disease without esophagitis; M19.90 Unspecified osteoarthritis, unspecified site; Z79.84 Long term (current) use of oral hypoglycemic drugs; Z85.89 Personal history of malignant neoplasm of other organs and systems; Z68.41 Body mass index [BMI] 40.0-44.9, adult ==

== ENCOUNTER → 2021-02-17 | Outpatient (CLI) | payer OTHER | LOC: HYPER 11:48 | PROVIDERS: ATTEND Emergency Medicine | DX: E11.622 Type 2 diabetes mellitus with other skin ulcer (principal); L97.812 Non-pressure chronic ulcer of other part of right lower leg with fat layer exposed; L97.822 Non-pressure chronic ulcer of other part of left lower leg with fat layer exposed; E11.621 Type 2 diabetes mellitus with foot ulcer; L89.613 Pressure ulcer of right heel, stage 3; L97.411 Non-pressure chronic ulcer of right heel and midfoot limited to breakdown of skin; I87.2 Venous insufficiency (chronic) (peripheral); R60.0 Localized edema; L86 Keratoderma in diseases classified elsewhere; L88 Pyoderma gangrenosum; L84 Corns and callosities; I10 Essential (primary) hypertension; E78.5 Hyperlipidemia, unspecified; M19.90 Unspecified osteoarthritis, unspecified site; E66.9 Obesity, unspecified; Z68.41 Body mass index [BMI] 40.0-44.9, adult; Z85.89 Personal history of malignant neoplasm of other organs and systems; Z79.82 Long term (current) use of aspirin; Z79.899 Other long term (current) drug therapy; Z79.84 Long term (current) use of oral hypoglycemic drugs ==

== ENCOUNTER → 2021-03-09 | Outpatient (CLI) | payer OTHER | LOC: HYPER 13:27 | PROVIDERS: ATTEND Emergency Medicine | DX: E11.622 Type 2 diabetes mellitus with other skin ulcer (principal); L97.812 Non-pressure chronic ulcer of other part of right lower leg with fat layer exposed; L97.822 Non-pressure chronic ulcer of other part of left lower leg with fat layer exposed; E11.621 Type 2 diabetes mellitus with foot ulcer; L89.613 Pressure ulcer of right heel, stage 3; L97.411 Non-pressure chronic ulcer of right heel and midfoot limited to breakdown of skin; I87.2 Venous insufficiency (chronic) (peripheral); R60.0 Localized edema; L86 Keratoderma in diseases classified elsewhere; L88 Pyoderma gangrenosum; L84 Corns and callosities; E78.5 Hyperlipidemia, unspecified; E66.01 Morbid (severe) obesity due to excess calories; I10 Essential (primary) hypertension; M19.90 Unspecified osteoarthritis, unspecified site; K21.9 Gastro-esophageal reflux disease without esophagitis; Z68.41 Body mass index [BMI] 40.0-44.9, adult; Z85.89 Personal history of malignant neoplasm of other organs and systems; Z79.82 Long term (current) use of aspirin; Z79.899 Other long term (current) drug therapy; Z79.84 Long term (current) use of oral hypoglycemic drugs ==

== ENCOUNTER → 2021-03-19 | Outpatient (CLI) | payer OTHER | LOC: SJCVCIMAG 11:40 | PROVIDERS: ATTEND Internal Medicine | DX: I08.3 Combined rheumatic disorders of mitral, aortic and tricuspid valves (principal); I11.0 Hypertensive heart disease with heart failure; I50.9 Heart failure, unspecified; R06.00 Dyspnea, unspecified; E10.9 Type 1 diabetes mellitus without complications; I27.20 Pulmonary hypertension, unspecified; M79.609 Pain in unspecified limb; G89.29 Other chronic pain; E66.9 Obesity, unspecified; G47.33 Obstructive sleep apnea (adult) (pediatric); Z88.2 Allergy status to sulfonamides; Z88.8 Allergy status to other drugs, medicaments and biological substances; Z79.82 Long term (current) use of aspirin; Z79.899 Other long term (current) drug therapy; Z82.49 Family history of ischemic heart disease and other diseases of the circulatory system ==

== ENCOUNTER → 2021-03-30 | Outpatient (CLI) | payer OTHER | LOC: HYPER 08:16 | PROVIDERS: ATTEND Emergency Medicine | DX: E11.622 Type 2 diabetes mellitus with other skin ulcer (principal); L97.812 Non-pressure chronic ulcer of other part of right lower leg with fat layer exposed; L97.822 Non-pressure chronic ulcer of other part of left lower leg with fat layer exposed; E11.621 Type 2 diabetes mellitus with foot ulcer; L89.613 Pressure ulcer of right heel, stage 3; L97.411 Non-pressure chronic ulcer of right heel and midfoot limited to breakdown of skin; I87.2 Venous insufficiency (chronic) (peripheral); L86 Keratoderma in diseases classified elsewhere; L88 Pyoderma gangrenosum; R60.0 Localized edema; L84 Corns and callosities; E78.5 Hyperlipidemia, unspecified; I10 Essential (primary) hypertension; M19.90 Unspecified osteoarthritis, unspecified site; E66.9 Obesity, unspecified; Z68.41 Body mass index [BMI] 40.0-44.9, adult; Z85.89 Personal history of malignant neoplasm of other organs and systems; Z79.84 Long term (current) use of oral hypoglycemic drugs; Z79.82 Long term (current) use of aspirin; Z79.899 Other long term (current) drug therapy ==

== ENCOUNTER → 2021-05-26 | Outpatient (CLI) | payer OTHER | LOC: HYPER 08:37 | PROVIDERS: ATTEND Emergency Medicine | DX: E11.622 Type 2 diabetes mellitus with other skin ulcer (principal); L97.812 Non-pressure chronic ulcer of other part of right lower leg with fat layer exposed; L97.822 Non-pressure chronic ulcer of other part of left lower leg with fat layer exposed; E11.621 Type 2 diabetes mellitus with foot ulcer; L89.613 Pressure ulcer of right heel, stage 3; L97.411 Non-pressure chronic ulcer of right heel and midfoot limited to breakdown of skin; I87.2 Venous insufficiency (chronic) (peripheral); L86 Keratoderma in diseases classified elsewhere; L88 Pyoderma gangrenosum; L84 Corns and callosities; R60.0 Localized edema; E66.01 Morbid (severe) obesity due to excess calories; E78.5 Hyperlipidemia, unspecified; I10 Essential (primary) hypertension; M19.90 Unspecified osteoarthritis, unspecified site; Z68.41 Body mass index [BMI] 40.0-44.9, adult; Z85.89 Personal history of malignant neoplasm of other organs and systems; Z79.84 Long term (current) use of oral hypoglycemic drugs; Z79.82 Long term (current) use of aspirin ==